=== PATIENT | male | born 1940 | race Caucasian/White ===

== ENCOUNTER 2019-11-21 18:03 | Emergency (ER) | payer MEDICARE, SELFPAY ==
--- NOTE | 2019-11-21 18:09 | XR_ITS ---
WS: [id number] PORTABLE CHEST HISTORY: sob COMPARISON: 09/11/2019 Prior median sternotomy. Lungs are hyperinflated with a benign calcified granuloma in the central RIGHT lung. No suspicious ma ss or nodule. No pneumonia. Normal vasculature. No pleural effusion or pneumothorax. Cardiac size: Normal. Mediastinum/Aorta: Mild atherosclerosis aorta. AC joint arthritis. Surgical clips the LEFT neck. XR/XR chest 1V portable [id number] IMPRESSION: 1. Atherosclerosis aorta with prior CABG. 2. Prior granulomatous disease. 3. No acute cardiopulmonary disease.
--- NOTE | 2019-11-21 18:10 | ECG_ITS ---
Measurements Intervals [place] Rate: 89 P: 90 NE: 141 QRS: 261 QRSD: 136 T: 75 QT: 393 QTc: 479 SINUS RHYTHM WITH OCCASIONAL SUPRAVENTRICULAR PREMATURE COMPLEXES INDETERMINATE AXIS Right bundle branch block Compared to ECG 09/11/2019 02:13:37 Intraventricular conduction delay now present Left anterior fascicular block no longer present Electronically Signed On 11-22-2019 8:08:06 OFFICE WORKFORCE PLANNER by Linus Hunter M.D. [id number]
[2019-11-21 18:26] VITALS: BP 208/111; PULSE 86; RESP 24; TEMP 37.1; O2SAT 92; BMI 25.8
[2019-11-21 18:41] LABS: INR 1.02 (0.8-1.2)
[2019-11-21 18:44] LABS: Basophils # 0.1 10^3/uL (0.0-0.1); Basophils % 0.6 %; Eosinophils # 0.5 10^3/uL (0.0-0.8); Hematocrit 46.1 % (42.0-52.0); Hemoglobin 14.6 g/dL (11.7-16.6); Lymphocytes # 1.4 10^3/uL (0.8-4.8); Lymphocytes % 11.6 %; Mean Corpuscular HGB Conc 31.7 g/dL (30.0-36.0); Mean Corpuscular Hemoglobin 28.8 pg (28.0-34.0); Mean Corpuscular Volume 90.9 fL (80-94); Monocytes # 1.4 10^3/uL (0.2-0.9); Monocytes % 11.6 %; Neutrophils # 8.9 10^3/uL (1.8-7.7); Neutrophils % 71.8 %; Nucleated Red Blood Cells % 0 %; Platelet Count 274 10^3/cmm (130-400); Red Blood Count 5.07 10^6/uL (4.1-5.3); Red Cell Distribution Width 13.4 % (12.1-15.1); White Blood Count 12.4 10^3/uL (4.0-10.0)
[2019-11-21 18:48] LABS: Troponin(5th) Baseline 17 ng/mL (0-15)
[2019-11-21 18:56] LABS: Alanine Aminotransferase 12 U/L (0-41); Alkaline Phosphatase 98 IU/L (40-130); Anion Gap 16.4 (5-19); Aspartate Amino Transferase 15 U/L (0-40); Blood Urea Nitrogen 13 mg/dL (8-23); Calcium 9.4 mg/Dl (8.8-10.2); Carbon Dioxide 28 mmol/L (22-29); Chloride 100 mmol/L (98-107); Globulin 3.6 g/dL (1.3-4.6); Glucose 137 mg/dL (74-106); NT Pro B Type Natriuretic Pept 1142 pg/mL (0-450); Potassium 4.4 mmol/L (3.5-5.1); Sodium 140 mmol/L (136-145); Total Bilirubin 0.4 mg/dL (0.15-1.2); Total Protein 7.6 g/dL (6.6-8.7)
--- NOTE | 2019-11-21 20:10 | ECG_ITS ---
Measurements Intervals [place] Rate: 85 P: 86 [place]: 153 QRS: 259 QRSD: 134 T: 69 QT: 404 QTc: 482 SINUS RHYTHM INDETERMINATE AXIS RIGHT BUNDLE BRANCH BLOCK [120+ ms QRS DURATION, UPRIGHT V1, 40+ ms S IN I/aVL/V4/V5/V6] LEFT POSTERIOR FASCICULAR BLOCK [QRS AXIS > 109, INFERIOR Q] Compared to ECG 09/11/2019 02:13:37 Left posterior fascicular block now present Left anterior fascicular block no longer present Electronically Signed On 11-22-2019 8:09:34 COMPUTER FIELD TECHNICIAN by Linus Hunter M.D. [id number]
[2019-11-21 20:35] LABS: Troponin 5 2HR 21.07 ng/mL (0-15)
[2019-11-21 20:42] LABS: Troponin 5 2HR Delta 4.07 ABS# (0-10)
--- NOTE | 2019-11-21 23:31 | W.ED.SOB ---
HPI - SOB/Dyspnea General: Chief Complaint: Shortness of Breath/Dyspnea Stated Complaint: sob Time Seen by Provider: 11/21/19 23:25 History of Present Illness: HPI Narrative: Cough and sputum production for the last few days MD elicited complaint: shortness of breath, cough and pain with inspiration Pertinent past history: COPD and congestive heart failure Context: recent illness Timing: improved Severity: mild Exacerbating factors: lying flat Associated symptoms: Reports chest congestion and cough; Deny abdominal pain, chest pain (edema), extremity pain, fever(s), hemoptysis, nausea or vomiting Review of Systems Const: Denies: fever, chills or body aches Eyes: Denies: change in vision or blurry vision ENMT: Denies: throat pain or nasal congestion Card: Denies: chest pain (edema) or shortness of breath on exertion Resp: Reports: shortness of breath, productive cough, wheezing and chest congestion; Denies: non-productive cough, pain on inspiration, change in phlegm color or coughing up blood GI: Denies: abdominal pain, nausea or vomiting : Denies: difficulty urinating Musc: Denies: extremity pain Skin/Breast: Denies: rash Neuro: Denies: headache Psych: Denies: anxiety or depression Bharathi/Lymph: Denies: easy bruising PFSH ED PFSH: Statuses (acute, chronic, etc) shown below reflect problem list status as previously entered and may not be historically accurate Social History Smoking and tobacco status: former smoker Physical Exam Const: COMMON NORMALS: no apparent distress, average body habitus and oriented x3 HENMT: COMMON NORMALS: normocephalic HEAD & SCALP: normal to inspection and normocephalic FACE & SINUS: normal facial exam Eye: COMMON NORMALS: conjunctivae normal GENERAL EYE: normal appearance of both eyes CONJUNCTIVA: Yes conjunctivae normal Neck/C-Spine: COMMON NORMALS: no JVD Chest: COMMONS NORMALS: inspection of chest normal Resp: COMMON NORMALS: normal respiratory effort AUSCULTATION: rhonchi and wheezes expiratory wheezes and scattered wheezes Cardio: COMMON NORMALS: no JVD, regular rate and regular rhythm RATE: regular rate RHYTHM: regular rhythm OTHER: edema 1+, non pitting BLE GI: COMMON NORMALS: normal to inspection, nondistended, normoactive bowel sounds Extremity: COMMON NORMALS: normal to inspection and full ROM Neuro: COMMON NORMALS: oriented x3 Course Vital Signs: Vital signs: Vital Signs Temperature 98.7 F 11/21/19 18:26 Pulse Rate 80 11/21/19 23:53 Respiratory Rate 18 11/21/19 23:53 Blood Pressure 192/110 11/21/19 23:53 Pulse Oximetry 93 11/21/19 23:53 MDM - SOB/Dyspnea Lab Data: Labs: Lab Results 11/21/19 11/21/19 11/21/19 Range/Units 18:25 18:25 18:25 WBC 12.4 H (4.0-10.0) 10^3/ uL RBC 5.07 (4.1-5.3) 10^6/u L Hgb 14.6 (11.7-16.6) g/dL Hct 46.1 (42.0-52.0) % MCV 90.9 (80-94) fL MCH 28.8 (28.0-34.0) pg MCHC 31.7 (30.0-36.0) g/dL RDW 13.4 (12.1-15.1) % Plt Count 274 (130-400) 10^3/c mm MPV 11.0 H (7.4-10.4) fL Neut % (Auto) 71.8 % Lymph % (Auto) 11.6 % [place] % (Auto) 11.6 % Eos % (Auto) 4.0 % Baso % (Auto) 0.6 % Neut # (Auto) 8.9 H (1.8-7.7) 10^3/u L Lymph # (Auto) 1.4 (0.8-4.8) 10^3/u L [place] # (Auto) 1.4 H (0.2-0.9) 10^3/u L Eos # (Auto) 0.5 (0.0-0.8) 10^3/u L Baso # (Auto) 0.1 (0.0-0.1) 10^3/u L Nucleated RBC % (a uto) 0 % Nucleated RBCs # 0.0 /100WBC PT 13.80 H (10.5-13.3) SECO NDS INR 1.02 (0.8-1.2) Sodium 140 (136-145) mmol/L Potassium 4.4 (3.5-5.1) mmol/L Chloride 100 (98-107) mmol/L Carbon Dioxide 28 (22-29) mmol/L Anion Gap 16.4 (5-19) BUN 13 (8-23) mg/dL Creatinine 1.1 (0.7-1.2) mg/dL Glucose 137 H (74-106) mg/dL Calcium 9.4 (8.8-10.2) mg/Dl Total Bilirubin 0.4 (0.15-1.2) mg/dL AST 15 (0-40) U/L ALT 12 (0-41) U/L Alkaline Phosphata se 98 (40-130) IU/L Troponin T Baselin e (0-15) ng/mL Troponin T 120 Min resighini (0-15) ng/mL Delta Troponin T (0-10) ABS# NT-Pro-B Natriuret Pep 1142 H (0-450) pg/mL Total Protein 7.6 (6.6-8.7) g/dL Albumin 4.0 (3.5-5.2) g/dL Globulin 3.6 (1.3-4.6) g/dL 11/21/19 11/21/19 Range/Units 18:25 20:15 WBC (4.0-10.0) 10^3/ uL RBC (4.1-5.3) 10^6/u L Hgb (11.7-16.6) g/dL Hct (42.0-52.0) % MCV (80-94) fL MCH (28.0-34.0) pg MCHC (30.0-36.0) g/dL RDW (12.1-15.1) % Plt Count (130-400) 10^3/c mm MPV (7.4-10.4) fL Neut % (Auto) % Lymph % (Auto) % [place] % (Auto) % Eos % (Auto) % Baso % (Auto) % Neut # (Auto) (1.8-7.7) 10^3/u L Lymph # (Auto) (0.8-4.8) 10^3/u L [place] # (Auto) (0.2-0.9) 10^3/u L Eos # (Auto) (0.0-0.8) 10^3/u L Baso # (Auto) (0.0-0.1) 10^3/u L Nucleated RBC % (a uto) % Nucleated RBCs # /100WBC PT (10.5-13.3) SECO NDS INR (0.8-1.2) Sodium (136-145) mmol/L Potassium (3.5-5.1) mmol/L Chloride (98-107) mmol/L Carbon Dioxide (22-29) mmol/L Anion Gap (5-19) BUN (8-23) mg/dL Creatinine (0.7-1.2) mg/dL Glucose (74-106) mg/dL Calcium (8.8-10.2) mg/Dl Total Bilirubin (0.15-1.2) mg/dL AST (0-40) U/L ALT (0-41) U/L Alkaline Phosphata se (40-130) IU/L Troponin T Baselin e 17 H (0-15) ng/mL Troponin T 120 Min resighini 21.07 H (0-15) ng/mL Delta Troponin T 4.07 (0-10) ABS# NT-Pro-B Natriuret Pep (0-450) pg/mL Total Protein (6.6-8.7) g/dL Albumin (3.5-5.2) g/dL Globulin (1.3-4.6) g/dL EKG Data^: EKG 3: EKG Interpretation Date: 11/22/19 EKG interpretation time: 00:06 Prior EKG tracings: available for review Interpretation: RBBB, 79bpm, sinus Discharge Plan Discharge Patient Disposition: Home, Self-Care Clinical Impression: Acute bacterial bronchitis Condition: Stable Prescriptions: New albuterol sulfate 90 mcg/actuation HFA aerosol inhaler 2 inh INHALATION Q4H PRN (Reason: shortness of breath) Qty: 8.5 RF: 0 clonidine HCl 0.1 mg tablet 0.1 mg PO Q6H 2 Days Qty: 8 RF: 0 azithromycin [Zithromax Z-Jose Enrique] 250 mg tablet 250 mg PO DAILY 6 Days RF: 0 prednisone 10 mg tablet 10 mg PO DAILY Qty: 15 RF: 0 Referrals: Jv Ro MD [Primary Care Provider] - Discharge Diet: Usual diet Discharge Activity: Increase activity as tolerated Coding Level of Care Code ED Pilot Fuel Engineer for Ameyag Fwd Exam Problem Focused
[2019-11-21] MEDS: predniSONE 20 mg Tablet PO (23:47)
[2019-11-21] MEDS: azithromycin 250 mg Tablet 500 MG PO (23:48)
[2019-11-21 23:53] VITALS: BP 192/110; PULSE 80; RESP 18; O2SAT 93
--- NOTE | 2019-11-22 00:10 | ECG_ITS ---
Measurements Intervals [place] Rate: 79 P: 87 MA: 156 QRS: -24 QRSD: 133 T: 74 QT: 422 QTc: 484 SINUS RHYTHM INDETERMINATE AXIS RIGHT BUNDLE BRANCH BLOCK [120+ ms QRS DURATION, UPRIGHT V1, 40+ ms S IN I/aVL/V4/V5/V6] Compared to ECG 09/11/2019 02:13:37 Left anterior fascicular block no longer present Electronically Signed On 11-22-2019 8:10:17 PROCESS ENVIRONMENTAL TECHNICIAN by Linus Hunter M.D. [id number]
[2019-11-22] MEDS: ipratropium-albuterol 3 mL Neb INHALATION (00:38)
[2019-11-22 00:39] VITALS: PULSE 84; RESP 20; O2SAT 94
[2019-11-22 00:42] VITALS: PULSE 82
[2019-11-22 00:50] LABS: Troponin 5 6HR 18.33 ng/L (0-15)
[2019-11-22 01:09] VITALS: BP 116/72
[2019-11-22 01:23] VITALS: BP 116/72; PULSE 86; RESP 18; O2SAT 96
[2019-11-22 01:30] LABS: Troponin 5 6HR Delta 1.33 ng/L (0-12)
== END 2019-11-22 01:24 | disposition home or self-care (01) ==
PROVIDERS: Emergency Medicine; Emergency Provider Nurse Practitioner Family; Family Provider Family Medicine; PCP Family Medicine
DX: J20.9 Acute bronchitis, unspecified (principal); Z87.891 Personal history of nicotine dependence; I70.0 Atherosclerosis of aorta
CPT/HCPCS: 36415; 71045; 80053; 83880; 84484; 85025; 85610; 93005; 99282; J7512; Q0144

== ENCOUNTER 2020-01-30 11:29 | Emergency (ER) | payer MEDICARE, SELFPAY ==
[2020-01-30] VITALS (7 sets, daily range): BP systolic 134–270; BP diastolic 70–132; PULSE 62–75; RESP 14–16; TEMP 36.5; O2SAT 90–96; BMI 25.8
--- NOTE | 2020-01-30 11:36 | ED_ITS ---
Entered by Lin Riley, acting as scribe for HPI - Neuro Symptoms/Deficit General: Chief Complaint: Neuro Symptoms/Deficit Stated Complaint: stroke like symptoms Time Seen by Provider: 01/30/20 11:34 Source: patient and family Mode of arrival: wheelchair Limitations: no limitations History of Present Illness: Onset (ago): week(s) (1 week ago) Timing confirmed by: family member Severity: similar to previous episodes Relieving factors: none Exacerbating factors: none Associated symptoms: Reports headache(s) and other (headache) Treatments Prior to Arrival: none Review of Systems General: Reports: 10 or more systems reviewed and unremarkable except in HPI and below Neuro: Reports: headache PFSH ED PFSH: Social History Smoking and tobacco status: former smoker Course Vital Signs: Vital signs: Vital Signs Temperature 97.7 F 01/30/20 11:31 Pulse Rate 67 01/30/20 13:47 Respiratory Rate 15 01/30/20 13:47 Blood Pressure 154/86 01/30/20 13:47 Pulse Oximetry 93 01/30/20 13:47 MDM - Neuro Symptoms/Deficit Lab Data: Labs: Lab Results 01/30/20 01/30/20 01/30/20 Range/Units 11:30 11:30 11:35 WBC 8.0 (4.0-10.0) 10^3/ uL RBC 5.01 (4.1-5.3) 10^6/u L Hgb 14.7 (11.7-16.6) g/dL Hct 46.4 (42.0-52.0) % MCV 92.6 (80-94) fL MCH 29.3 (28.0-34.0) pg MCHC 31.7 (30.0-36.0) g/dL RDW 14.1 (12.1-15.1) % Plt Count 223 (130-400) 10^3/c mm MPV 11.2 H (7.4-10.4) fL Neut % (Auto) 59.6 % Lymph % (Auto) 24.7 % [place] % (Auto) 10.2 % Eos % (Auto) 4.4 % Baso % (Auto) 0.9 % Neut # (Auto) 4.8 (1.8-7.7) 10^3/u L Lymph # (Auto) 2.0 (0.8-4.8) 10^3/u L [place] # (Auto) 0.8 (0.2-0.9) 10^3/u L Eos # (Auto) 0.4 (0.0-0.8) 10^3/u L Baso # (Auto) 0.1 (0.0-0.1) 10^3/u L Nucleated RBC % (a uto) 0 % Nucleated RBCs # 0.0 /100WBC PT (10.5-13.3) SECO NDS INR (0.8-1.2) APTT (23.9-36.7) SECO NDS Sodium (136-145) mmol/L Potassium (3.5-5.1) mmol/L Chloride (98-107) mmol/L Carbon Dioxide (22-29) mmol/L Anion Gap (5-19) BUN (8-23) mg/dL Creatinine (0.7-1.2) mg/dL Glucose (65-115) mg/dL POC Glucose (70-110) mg/dL Calculated Osmolal ity (285-295) mOsm/k g Calcium (8.5-10.5) mg/dL Total Bilirubin (0.15-1.2) mg/dL AST (0-40) U/L ALT (0-41) U/L Alkaline Phosphata se (40-130) IU/L Total Protein (6.6-8.7) g/dL Albumin (3.5-5.2) g/dL Globulin (1.3-4.6) g/dL Urine Color Straw (Yellow) Urine Appearance Clear (CLEAR) Urine pH 6.5 (5-7) Ur Specific Gravit y 1.005 (1.005-1.030) Urine Protein Neg (Negative) Urine Glucose (UA) Norm (Normal) Urine Ketones Negative (Negative) Urine Blood Neg (Negative) Urine Nitrate Negative (Negative) Urine Bilirubin Neg (NEGATIVE) Urine Urobilinogen Norm (Negative) mg/dL Ur Leukocyte Zari ase Negative (Negative) Urine Opiates Scre en Negative (Negative) ng/mL Ur Barbiturates Sc reen Negative (Negative) ng/mL Ur Phencyclidine S crn Negative (Negative) ng/mL Ur Amphetamines Sc reen Negative (Negative) ng/mL U Benzodiazepines Scrn Negative (Negative) ng/mL Urine Cocaine Scre en Negative (Negative) ng/mL U Marijuana (THC) Screen Negative (Negative) ng/mL 01/30/20 01/30/20 01/30/20 Range/Units 11:35 11:42 12:17 WBC (4.0-10.0) 10^3/ uL RBC (4.1-5.3) 10^6/u L Hgb (11.7-16.6) g/dL Hct (42.0-52.0) % MCV (80-94) fL MCH (28.0-34.0) pg MCHC (30.0-36.0) g/dL RDW (12.1-15.1) % Plt Count (130-400) 10^3/c mm MPV (7.4-10.4) fL Neut % (Auto) % Lymph % (Auto) % [place] % (Auto) % Eos % (Auto) % Baso % (Auto) % Neut # (Auto) (1.8-7.7) 10^3/u L Lymph # (Auto) (0.8-4.8) 10^3/u L [place] # (Auto) (0.2-0.9) 10^3/u L Eos # (Auto) (0.0-0.8) 10^3/u L Baso # (Auto) (0.0-0.1) 10^3/u L Nucleated RBC % (a uto) % Nucleated RBCs # /100WBC PT 13.50 H (10.5-13.3) SECO NDS INR 1.03 (0.8-1.2) APTT 28.9 (23.9-36.7) SECO NDS Sodium 139 (136-145) mmol/L Potassium 4.1 (3.5-5.1) mmol/L Chloride 101 (98-107) mmol/L Carbon Dioxide 30 H (22-29) mmol/L Anion Gap 12.1 (5-19) BUN 14 (8-23) mg/dL Creatinine 1.1 (0.7-1.2) mg/dL Glucose 107 (65-115) mg/dL POC Glucose 101 (70-110) mg/dL Calculated Osmolal ity 285 (285-295) mOsm/k g Calcium 9.1 (8.5-10.5) mg/dL Total Bilirubin 1.1 (0.15-1.2) mg/dL AST 20 (0-40) U/L ALT 16 (0-41) U/L Alkaline Phosphata se 72 (40-130) IU/L Total Protein 6.8 (6.6-8.7) g/dL Albumin 3.8 (3.5-5.2) g/dL Globulin 3.0 (1.3-4.6) g/dL Urine Color (Yellow) Urine Appearance (CLEAR) Urine pH (5-7) Ur Specific Gravit y (1.005-1.030) Urine Protein (Negative) Urine Glucose (UA) (Normal) Urine Ketones (Negative) Urine Blood (Negative) Urine Nitrate (Negative) Urine Bilirubin (NEGATIVE) Urine Urobilinogen (Negative) mg/dL Ur Leukocyte Zari ase (Negative) Urine Opiates Scre en (Negative) ng/mL Ur Barbiturates Sc reen (Negative) ng/mL Ur Phencyclidine S crn (Negative) ng/mL Ur Amphetamines Sc reen (Negative) ng/mL U Benzodiazepines Scrn (Negative) ng/mL Urine Cocaine Scre en (Negative) ng/mL U Marijuana (THC) Screen (Negative) ng/mL Discharge Plan Discharge Clinical Impression: Hypertensive crisis Condition: Stable Prescriptions: New clonidine HCl [Catapres] 0.1 mg tablet 0.1 mg PO ONCE PRN (Reason: hypertensive emergency) Qty: 10 RF: 0 hydralazine 10 mg tablet 10 mg PO TID Qty: 30 RF: 0 No Action carvedilol 25 mg tablet 25 mg PO BID RF: 0 lisinopril 20 mg tablet 20 mg PO BID RF: 0 clopidogrel 75 mg tablet 75 mg PO DAILY RF: 0 aspirin 81 mg Tablet,Delayed Release (Dr/Ec) 81 mg PO DAILY RF: 0 tamsulosin 0.4 mg capsule 0.4 mg PO DAILY RF: 0 pantoprazole 40 mg tablet,delayed release (DR/EC) 40 mg PO DAILY RF: 0 escitalopram oxalate 10 mg tablet 10 mg PO DAILY RF: 0 rosuvastatin 40 mg tablet 40 mg PO DAILY RF: 0 albuterol sulfate 90 mcg/actuation HFA aerosol inhaler 2 inh INHALATION Q4H PRN (Reason: shortness of breath) Qty: 8.5 RF: 0 Discharge Orders: Discharge Order (Routine); Ordered 01/30/20 Ordered By: Ricardo Sharp Referrals: Jv Ro MD [Primary Care Provider] - Coding Level of Care Code ED Director Market Research for Chg Fwd The documentation recorded by the Osvaldo gibson Bridget Annette, accurately reflects the service I personally performed and the decisions made by , Ricardo Sharp, Jan 30, 2020 11:29
--- NOTE | 2020-01-30 11:38 | XR_ITS ---
WS: [id number] XR chest 1V portable [id number] REASON FOR EXAM: dyspnea FINDINGS: A hamartoma seen in the right lower lung middle aspects. The heart is borderline enlarged with coronary bypass changes. The lung ervin are well aerated no pneumonia, pleural effusion, pulmonary edema, pneumothorax, or ma ss effect. XR/XR chest 1V portable [id number] IMPRESSION: Negative chest for active pathology. 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
--- NOTE | 2020-01-30 11:38 | CT_ITS ---
WS: [id number] CT scan of the head, 01/30/2020 Clinical Data: Symptoms of Acute Stroke Comparison: CT head, 10/27/2018. DLP: 1382.[address] scans at [facility] use at least one of these dose optimization techniques: automat ed exposure control; mA and/or kV adjustment per patient size (includes targeted exams where dose is matched to clinical indication); or iterative reconstruction. Findings: The ventricular system is moderately dilated without shift. No recent infarct or hemorrhage is seen. There are no abnormal intracerebral masses. The cerebellum and brainstem are not remarkable. Bony windows of the skull and skull base show no fractures or erosions. The mastoid air cells, pr intern al auditory canals, sella turcica, intraorbital contents, and paranasal sinuses are unremarkable. CT/CT head wo con* [id number] Impression: Moderate cerebral atrophy.
--- NOTE | 2020-01-30 11:38 | ECG_ITS ---
Measurements Intervals [place] Rate: 62 P: 59 HI: 158 QRS: -17 QRSD: 133 T: 51 QT: 458 QTc: 467 SINUS RHYTHM RIGHT BUNDLE BRANCH BLOCK [120+ ms QRS DURATION, UPRIGHT V1, 40+ ms S IN I/aVL/V4/V5/V6] Compared to ECG 11/22/2019 00:06:25 Indeterminate axis no longer present Electronically Signed On 01-30-2020 12:44:12 CDT by Donna Nicole M.D. [id number]
[2020-01-30 11:45] LABS: Glucose Point of Care 101 mg/dL (70-110)
[2020-01-30 11:46] LABS: Basophils # 0.1 10^3/uL (0.0-0.1); Basophils % 0.9 %; Eosinophils # 0.4 10^3/uL (0.0-0.8); Eosinophils % 4.4 %; Hematocrit 46.4 % (42.0-52.0); Hemoglobin 14.7 g/dL (11.7-16.6); Lymphocytes % 24.7 %; Mean Corpuscular HGB Conc 31.7 g/dL (30.0-36.0); Mean Corpuscular Hemoglobin 29.3 pg (28.0-34.0); Mean Corpuscular Volume 92.6 fL (80-94); Mean Platelet Volume 11.2 fL (7.4-10.4); Monocytes # 0.8 10^3/uL (0.2-0.9); Monocytes % 10.2 %; Neutrophils # 4.8 10^3/uL (1.8-7.7); Neutrophils % 59.6 %; Nucleated Red Blood Cells % 0 %; Platelet Count 223 10^3/cmm (130-400); Red Blood Count 5.01 10^6/uL (4.1-5.3); Red Cell Distribution Width 14.1 % (12.1-15.1)
[2020-01-30] MEDS: sodium chloride 0.9% 500 ML 999 ML IV (11:46)
--- NOTE | 2020-01-30 11:50 | PC.NURSE ---
Patient to CT via stretcher
[2020-01-30 12:01] LABS: INR 1.03 (0.8-1.2); Partial Thromboplastin Time 28.9 SECONDS (23.9-36.7)
[2020-01-30 12:36] LABS: Add Urine Microscopic? NO
[2020-01-30 12:47] LABS: Urine Appearance Clear (CLEAR); Urine Color Straw (Yellow); pH Urine 6.5 (5-7)
[2020-01-30 12:48] LABS: Bilirubin Urine Neg (NEGATIVE); Blood Urine Neg (Negative); Glucose Urine UA Norm (Normal); Ketones Urine Negative (Negative); Leukocyte Esterase Urine Negative (Negative); Nitrate Urine Negative (Negative); Protein Urine Neg (Negative); Specific Gravity, Urine 1.005 (1.005-1.030); Urobilinogen Urine Norm (Negative)
[2020-01-30 12:56] LABS: Amphetamines Screen Urine Negative (Negative); Barbiturates Screen Urine Negative (Negative); Benzodiazepines Screen Urine Negative (Negative); Cocaine Screen Urine Negative (Negative); Opiate Screen Urine Negative (Negative); PCP Screen Urine Negative (Negative); THC Screen Urine Negative (Negative)
[2020-01-30 13:05] LABS: Alanine Aminotransferase 16 U/L (0-41); Albumin Level 3.8 g/dL (3.5-5.2); Alkaline Phosphatase 72 IU/L (40-130); Anion Gap 12.1 (5-19); Aspartate Amino Transferase 20 U/L (0-40); Blood Urea Nitrogen 14 mg/dL (8-23); Calcium 9.1 mg/dL (8.5-10.5); Carbon Dioxide 30 mmol/L (22-29); Chloride 101 mmol/L (98-107); Glucose 107 mg/dL (65-115); Osmolality Calculated 285 mOsm/kg (285-295); Potassium 4.1 mmol/L (3.5-5.1); Sodium 139 mmol/L (136-145); Total Bilirubin 1.1 mg/dL (0.15-1.2); Total Protein 6.8 g/dL (6.6-8.7)
== END 2020-01-30 14:37 | disposition home or self-care (01) ==
PROVIDERS: Emergency Provider Family Medicine; Family Provider Family Medicine; PCP Family Medicine
DX: I16.9 Hypertensive crisis, unspecified (principal); Q85.9 Phakomatosis, unspecified; G31.9 Degenerative disease of nervous system, unspecified; Z87.891 Personal history of nicotine dependence; Z95.1 Presence of aortocoronary bypass graft
CPT/HCPCS: 12345; 36415; 36416; 70450; 71045; 80053; 80306; 81003; 82962; 85025; 85610; 85730; 93005; 96365; 96366; 99283; 99284; J7040; J7050

== ENCOUNTER 2020-11-02 20:42 | Observation (INO) | payer MEDICARE, SELFPAY ==
[2020-11-02] VITALS (40 sets, daily range): BP systolic 128–237; BP diastolic 66–115; PULSE 67–146; RESP 16–34; TEMP 36.9; O2SAT 89–98; BMI 25.1
--- NOTE | 2020-11-02 20:56 | ECG_ITS ---
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 Measurements Intervals [place] Rate: 75 P: 67 NV: 155 QRS: -15 QRSD: 140 T: 58 QT: 440 QTc: 492 Interpretive Statements SINUS RHYTHM WITH OCCASIONAL SUPRAVENTRICULAR PREMATURE COMPLEXES INDETERMINATE AXIS RIGHT BUNDLE BRANCH BLOCK [120+ ms QRS DURATION, UPRIGHT V1, 40+ ms S IN I/aVL/V4/V5/V6] Compared to ECG 01/30/2020 12:36:25 Indeterminate axis now present Electronically Signed On 11-02-2020 21:53:48 RELATIONS MANAGER by Donna Nicole M.D. [email or web address] Environmental Solutionsturning point mature adult care unitAnchor Bay Technologiessouthview medical center.[employer]/store/NU/[id number] f
--- NOTE | 2020-11-02 20:56 | XRR_ITS ---
PROCEDURE INFORMATION: Exam: XR Chest, 1 View Exam date and time: 11/02/2020 9:14 PM Age: 80 years old Clinical indication: Other: Weakness TECHNIQUE: Imaging protocol: XR of the chest Views: 1 view. COMPARISON: CR XR chest 1V portable [id number] 01/30/2020 12:02 PM FINDINGS: Lungs: 5 mm calcified granuloma in the right lung. Minimal linear fibrosis at the left lung base. No consolidative pulmonary infiltrates are noted. Pleural space: No pleural effusion. No pneumothorax. Heart/Mediastinum: Mediastinal surgical clips are noted, consistent with previous CABG. Bones/joints: Median sternotomy noted. XR/XR chest 1V portable [id number] IMPRESSION: 1. No acute abnormality demonstrated. 2. There is no interval change from the prior examination.
--- NOTE | 2020-11-02 20:56 | CTR_ITS ---
PROCEDURE INFORMATION: Exam: CT Head Without Contrast Exam date and time: 11/02/2020 8:58 PM Age: 80 years old Clinical indication: Speech disturbance and weakness, facial; Patient HX: Slurred speech R facial droop and unsteady gait; Additional info: Symptoms of acute stroke TECHNIQUE: Imaging protocol: Computed tomography of the head without contrast. Radiation optimization: All CT scans at this facility use at least one of these dose optimization techniques: automated exposure control; mA and/or kV adjustment per patient size (includes targeted exams where dose is matched to clinical indication); or iterative reconstruction. Other technique: STROKE PROTOCOL was implemented. COMPARISON: CT head wo con* [id number] 01/30/2020 11:49 AM RADIATION DOSE METRICS: Total DLP (mGy-cm): 1294.69 FINDINGS: Brain: There is volume loss. There is white matter lucency consistent with chronic microvascular disease. There is no acute infarct. There is no hemorrhage or extra-axial collection. There is no mass. Cerebral ventricles: There is no hydrocephalus. Bones/joints: Unremarkable. No acute fracture. Paranasal sinuses: Visualized sinuses are unremarkable. No fluid levels. Mastoid air cells: Visualized mastoid air cells are well aerated. Soft tissues: Unremarkable. CT/CT head wo con* [id number] IMPRESSION: 1. There is chronic microvascular disease. 2. No acute intracranial lesion or injury. No change from prior scan. ASSESSMENT: ASPECTS ([place]erie Stroke Program Early CT Score) is 10. Radiation Dose CTDIVOL = (mGy): DLP = 1294.69 (mGy-cm)
[2020-11-02 20:57] LABS: Glucose Point of Care 108 mg/dL (70-110)
--- NOTE | 2020-11-02 20:57 | ECG_ITS ---
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 Measurements Intervals [place] Rate: 75 P: 72 DE: 156 QRS: 7 QRSD: 140 T: 65 QT: 416 QTc: 466 Interpretive Statements SINUS RHYTHM WITH OCCASIONAL SUPRAVENTRICULAR PREMATURE COMPLEXES INDETERMINATE AXIS RIGHT BUNDLE BRANCH BLOCK [120+ ms QRS DURATION, UPRIGHT V1, 40+ ms S IN I/aVL/V4/V5/V6] Compared to ECG 11/02/2020 20:50:43 No significant changes Electronically Signed On 11-02-2020 21:52:05 PROFESSIONAL SERVICES CONSULTANT by Donna Nicole M.D. https://[employer].DecisionPoint Systemsscott regional hospitalMinds + Machines Group Limitedfirelands regional medical [facility].ConnectFu/store/[id number] f
--- NOTE | 2020-11-02 20:57 | W.ED.NEUROSD ---
HPI - Neuro Symptoms/Deficit General: Chief Complaint: Neuro Symptoms/Deficit Stated Complaint: NEURO SYMPTOMS Time Seen by Provider: 11/02/20 20:56 History of Present Illness: HPI Narrative: 80-year-old male with a history of CVA presents with right-sided facial droop, dysarthria, and blurry vision. On initial interview, time of onset is seemed to be around 7 PM. On further questioning, he has been battling some of the symptoms for a week or so. They seem to acutely worsen at around 7 PM today. He also states that he got a headache around that time. The headache seems improved on arrival. His other symptoms seem to be stable to worsening, including his speech. They also say that over the past week to 10 days, his blood pressure has been very high at times. He had been in contact with his primary physician, and blood pressure medication had been increased. It had been high despite this. Onset (ago): hour(s) Last Observed Normal: 19:00 Timing confirmed by: other Location: right face and dysarthria History of same: Yes Severity: moderate Quality: burning Relieving factors: none Exacerbating factors: none Context: gradual onset On Anticoagulants: No Associated symptoms: Reports headache(s) and short of breath; Deny chest pain, cough, fevers/chills, tingling, vertigo or vomiting Treatments Prior to Arrival: Aspirin Review of Systems Const: Denies: fever(s) or chills Eyes: Reports: change in vision and blurry vision ENMT: Denies: odynophagia, swelling of lips/tongue or sinus pain Card: Denies: chest pain Resp: Reports: dyspnea; Denies: productive cough, non-productive cough or wheezing GI: Denies: vomiting : Denies: difficulty urinating or hematuria Musc: Denies: neck pain or back pain Skin/Breast: Denies: rash or erythema Neuro: Reports: headache(s) and dizziness; Denies: vertigo or confusion Psych: Denies: anxiety PFSH ED PFSH: Medical History Arthritis Coronary artery disease Hypertension Peripheral vascular disease Seronegative rheumatoid arthritis 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 Type 2 diabetes mellitus Surgical History 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) S/P carotid endarterectomy Left-sided Family History Other CAD (coronary artery disease) Stroke Social History Smoking and tobacco status: former smoker Alcohol intake: never Substance/Drug Use: never Housing: House NIH stroke score NIHSS: Level Of Consciousness - 1a: 0 Level Of Consciousness Questions - 1b: Both Correct Level Of Consciousness Commands - 1c: Both Correct Best Gaze - 2: Normal Visual Bae - 3: Partial Hemianopia Facial Palsy - 4: Partial Paralysis Motor Arm Right - 5: No Drift Motor Arm Left - 5: No Drift Motor Leg Right - 6: No Drift Motor Leg Left - 6: No Drift Limb Ataxia - 7: Absent Sensory - 8: Normal Best Language - 9: No Aphasia Dysarthia - 10: Mild/Moderate Dysarthia Extinction And Inattention - 11: 0 Score: Total Score: 4 Physical Exam Const: GENERAL APPEARANCE: well developed ORIENTATION/CONSCIOUSNESS: Yes oriented to person, Yes oriented to place and Yes oriented to time HENMT: COMMON NORMALS: normocephalic, external ears normal and Normal external nose present HEAD & SCALP: normocephalic FACE & SINUS: normal facial exam NOSE: Normal external nose present and No nasal discharge present EXTERNAL EAR: Yes external ears normal MOUTH: tongue normal Eye: COMMON NORMALS: Equal, round and reactive pupils present, EOMs intact bilaterally and conjunctivae normal EYELID: eyelids normal CONJUNCTIVA: Yes conjunctivae normal PUPIL: Yes Equal, round and reactive pupils present Neck/C-Spine: GENERAL: No tracheal deviation Chest: COMMONS NORMALS: normal inspection of the chest CHEST: No tenderness Resp: COMMON NORMALS: clear to auscultation bilaterally EFFORT & INSPECTION: No tachypneic, No respiratory distress, No retractions, No uses accessory muscles and No tracheal deviation AUSCULTATION: clear to auscultation bilaterally, no rhonchi, no wheezes and lung sounds not diminished Cardio: COMMON NORMALS: regular rate and regular rhythm RATE: regular rate RHYTHM: regular rhythm HEART SOUNDS: no murmurs PERIPHERAL PULSES: radial pulses present GI: INSPECTION: No abdominal distension AUSCULTATION: No Hyperactive bowel sounds present and No Hypoactive bowel sounds present PALPATION: No Guarding due to palpation present (GI) and No Rigid due to palpation PERCUSSION: no dullness to percussion and no tympanic to percussion Neuro: SENSORIUM/ORIENTATION: Yes oriented to person, Yes oriented to place and Yes oriented to time OTHER: See NIH Psych: COMMON NORMALS: mental status grossly normal Skin: COMMON NORMALS: no rashes or lesions noted GENERAL SKIN EXAM: no rashes or lesions noted Course Consultations: Consultation #1: Edwin, Neurology [facility] Vital Signs: Vital signs: Vital Signs Temperature 98.5 F 11/02/20 20:46 Pulse Rate 71 11/03/20 00:10 Respiratory Rate 22 H 11/03/20 00:10 Blood Pressure 172/85 11/03/20 00:10 Pulse Oximetry 93 11/03/20 00:10 MDM - Neuro Symptoms/Deficit MDM Narrative: Medical decision making narrative: 80-year-old male presents with what appears to be an increase in dysarthria facial droop on the right, and perhaps an increase in chronic diplopia/blurry vision. He has an NIH of 4. Stroke alert was called after initial examination, spoke with neurology from [facility] in [place]. They agreed with questionable time of true onset of symptoms versus just worsening, and with an NIH of 4 which is less than 6, TPA may not be the best treatment for this patient. Patient agreed. He had received 20 mg of labetalol initially, with significant improvement in his blood pressure. With this, symptoms seem to improve as well. His facial droop on reexamination was not nearly as dense, and his speech was mildly improved. He will be observed in the hospital. Hospitalist agrees. Lab Data: Labs: Lab Results 11/02/20 11/02/20 11/02/20 Range/Units 20:47 20:52 20:52 WBC 8.0 (4.0-10.0) 10^3/ uL RBC 5.21 (4.1-5.3) 10^6/u L Hgb 14.8 (11.7-16.6) g/dL Hct 47.9 (42.0-52.0) % MCV 91.9 (80-94) fL MCH 28.4 (28.0-34.0) pg MCHC 30.9 (30.0-36.0) g/dL RDW 14.1 (12.1-15.1) % Plt Count 245 (130-400) 10^3/c mm MPV 11.2 H (7.4-10.4) fL Neut % (Auto) 51.2 % Lymph % (Auto) 28.6 % Mitchell % (Auto) 13.7 % Eos % (Auto) 4.8 % Baso % (Auto) 1.6 % Neut # (Auto) 4.07 (1.8-7.7) 10^3/u L Lymph # (Auto) 2.3 (0.8-4.8) 10^3/u L Mitchell # (Auto) 1.1 H (0.2-0.9) 10^3/u L Eos # (Auto) 0.4 (0.0-0.8) 10^3/u L Baso # (Auto) 0.1 (0.0-0.1) 10^3/u L Nucleated RBC % (a uto) 0 % Nucleated RBCs # 0.0 /100WBC PT 13.60 (12.1-14.9) SECO NDS INR 1.01 (0.8-1.2) APTT 26.9 (23.9-36.7) SECO NDS Sodium (136-145) mmol/L Potassium (3.5-5.1) mmol/L Chloride (98-107) mmol/L Carbon Dioxide (22-29) mmol/L Anion Gap (5-19) BUN (8-23) mg/dL Creatinine (0.7-1.2) mg/dL GFR Calculation Glucose (65-115) mg/dL POC Glucose 108 (70-110) mg/dL Calculated Osmolal ity (285-295) mOsm/k g Calcium (8.5-10.5) mg/dL Total Bilirubin (0.15-1.2) mg/dL AST (0-40) U/L ALT (0-41) U/L Alkaline Phosphata se (40-130) IU/L Troponin T Baselin e (0-15) ng/L Troponin T 120 Min upper [place] (0-15) ng/L Delta Troponin T (0-10) ABS# Total Protein (6.6-8.7) g/dL Albumin (3.5-5.2) g/dL Globulin (1.3-4.6) g/dL Urine Color (Yellow) Urine Appearance (CLEAR) Urine pH (5-7) Ur Specific Gravit y (1.005-1.030) Urine Protein (Negative) Urine Glucose (UA) (Normal) Urine Ketones (Negative) Urine Blood (Negative) Urine Nitrate (Negative) Urine Bilirubin (Negative) Urine Urobilinogen (Negative) mg/dL Ur Leukocyte Zari ase (Negative) Urine Opiates Scre en (Negative) ng/mL Ur Barbiturates Sc reen (Negative) ng/mL Ur Phencyclidine S crn (Negative) ng/mL Ur Amphetamines Sc reen (Negative) ng/mL U Benzodiazepines Scrn (Negative) ng/mL Urine Cocaine Scre en (Negative) ng/mL U Marijuana (THC) Screen (Negative) ng/mL 11/02/20 11/02/20 11/02/20 Range/Units 20:52 20:52 21:44 WBC (4.0-10.0) 10^3/ uL RBC (4.1-5.3) 10^6/u L Hgb (11.7-16.6) g/dL Hct (42.0-52.0) % MCV (80-94) fL MCH (28.0-34.0) pg MCHC (30.0-36.0) g/dL RDW (12.1-15.1) % Plt Count (130-400) 10^3/c mm MPV (7.4-10.4) fL Neut % (Auto) % Lymph % (Auto) % Mitchell % (Auto) % Eos % (Auto) % Baso % (Auto) % Neut # (Auto) (1.8-7.7) 10^3/u L Lymph # (Auto) (0.8-4.8) 10^3/u L Mitchell # (Auto) (0.2-0.9) 10^3/u L Eos # (Auto) (0.0-0.8) 10^3/u L Baso # (Auto) (0.0-0.1) 10^3/u L Nucleated RBC % (a uto) % Nucleated RBCs # /100WBC PT (12.1-14.9) SECO NDS INR (0.8-1.2) APTT (23.9-36.7) SECO NDS Sodium 142 (136-145) mmol/L Potassium 4.1 (3.5-5.1) mmol/L Chloride 104 (98-107) mmol/L Carbon Dioxide 30 H (22-29) mmol/L Anion Gap 12.1 (5-19) BUN 20 (8-23) mg/dL Creatinine 1.1 (0.7-1.2) mg/dL GFR Calculation Not Reportable Glucose 106 (65-115) mg/dL POC Glucose (70-110) mg/dL Calculated Osmolal ity 297 H (285-295) mOsm/k g Calcium 8.7 (8.5-10.5) mg/dL Total Bilirubin 0.4 (0.15-1.2) mg/dL AST 19 (0-40) U/L ALT 14 (0-41) U/L Alkaline Phosphata se 102 (40-130) IU/L Troponin T Baselin e 33 H (0-15) ng/L Troponin T 120 Min upper [place] (0-15) ng/L Delta Troponin T (0-10) ABS# Total Protein 7.0 (6.6-8.7) g/dL Albumin 3.9 (3.5-5.2) g/dL Globulin 3.1 (1.3-4.6) g/dL Urine Color (Yellow) Urine Appearance (CLEAR) Urine pH (5-7) Ur Specific Gravit y (1.005-1.030) Urine Protein (Negative) Urine Glucose (UA) (Normal) Urine Ketones (Negative) Urine Blood (Negative) Urine Nitrate (Negative) Urine Bilirubin (Negative) Urine Urobilinogen (Negative) mg/dL Ur Leukocyte Zari ase (Negative) Urine Opiates Scre en Negative (Negative) ng/mL Ur Barbiturates Sc reen Negative (Negative) ng/mL Ur Phencyclidine S crn Negative (Negative) ng/mL Ur Amphetamines Sc reen Negative (Negative) ng/mL U Benzodiazepines Scrn Negative (Negative) ng/mL Urine Cocaine Scre en Negative (Negative) ng/mL U Marijuana (THC) Screen Negative (Negative) ng/mL 11/02/20 11/02/20 Range/Units 21:44 23:15 WBC (4.0-10.0) 10^3/ uL RBC (4.1-5.3) 10^6/u L Hgb (11.7-16.6) g/dL Hct (42.0-52.0) % MCV (80-94) fL MCH (28.0-34.0) pg MCHC (30.0-36.0) g/dL RDW (12.1-15.1) % Plt Count (130-400) 10^3/c mm MPV (7.4-10.4) fL Neut % (Auto) % Lymph % (Auto) % Mitchell % (Auto) % Eos % (Auto) % Baso % (Auto) % Neut # (Auto) (1.8-7.7) 10^3/u L Lymph # (Auto) (0.8-4.8) 10^3/u L Mitchell # (Auto) (0.2-0.9) 10^3/u L Eos # (Auto) (0.0-0.8) 10^3/u L Baso # (Auto) (0.0-0.1) 10^3/u L Nucleated RBC % (a uto) % Nucleated RBCs # /100WBC PT (12.1-14.9) SECO NDS INR (0.8-1.2) APTT (23.9-36.7) SECO NDS Sodium (136-145) mmol/L Potassium (3.5-5.1) mmol/L Chloride (98-107) mmol/L Carbon Dioxide (22-29) mmol/L Anion Gap (5-19) BUN (8-23) mg/dL Creatinine (0.7-1.2) mg/dL GFR Calculation Glucose (65-115) mg/dL POC Glucose (70-110) mg/dL Calculated Osmolal ity (285-295) mOsm/k g Calcium (8.5-10.5) mg/dL Total Bilirubin (0.15-1.2) mg/dL AST (0-40) U/L ALT (0-41) U/L Alkaline Phosphata se (40-130) IU/L Troponin T Baselin e (0-15) ng/L Troponin T 120 Min [place] 33.38 H (0-15) ng/L Delta Troponin T 0.38 (0-10) ABS# Total Protein (6.6-8.7) g/dL Albumin (3.5-5.2) g/dL Globulin (1.3-4.6) g/dL Urine Color Yellow (Yellow) Urine Appearance Clear (CLEAR) Urine pH 5 (5-7) Ur Specific Gravit y 1.020 (1.005-1.030) Urine Protein Neg (Negative) Urine Glucose (UA) Norm (Normal) Urine Ketones Negative (Negative) Urine Blood Neg (Negative) Urine Nitrate Negative (Negative) Urine Bilirubin Neg (Negative) Urine Urobilinogen 1 H (Negative) mg/dL Ur Leukocyte Zari ase Negative (Negative) Urine Opiates Scre en (Negative) ng/mL Ur Barbiturates Sc reen (Negative) ng/mL Ur Phencyclidine S crn (Negative) ng/mL Ur Amphetamines Sc reen (Negative) ng/mL U Benzodiazepines Scrn (Negative) ng/mL Urine Cocaine Scre en (Negative) ng/mL U Marijuana (THC) Screen (Negative) ng/mL Discharge Plan Discharge Patient Disposition: Placed in Observation Admit Provider: Ewa Ramírez Clinical Impression: Hypertensive urgency Coding Level of Care Code ED Ocean Freight Agent for Chg Fwd Exam Comprehensive
[2020-11-02 21:04] LABS: Basophils # 0.1 10^3/uL (0.0-0.1); Basophils % 1.6 %; Eosinophils # 0.4 10^3/uL (0.0-0.8); Eosinophils % 4.8 %; Hematocrit 47.9 % (42.0-52.0); Hemoglobin 14.8 g/dL (11.7-16.6); Lymphocytes # 2.3 10^3/uL (0.8-4.8); Lymphocytes % 28.6 %; Mean Corpuscular HGB Conc 30.9 g/dL (30.0-36.0); Mean Corpuscular Hemoglobin 28.4 pg (28.0-34.0); Mean Corpuscular Volume 91.9 fL (80-94); Mean Platelet Volume 11.2 fL (7.4-10.4); Monocytes # 1.1 10^3/uL (0.2-0.9); Monocytes % 13.7 %; Neutrophils # 4.07 10^3/uL (1.8-7.7); Neutrophils % 51.2 %; Nucleated Red Blood Cells % 0 %; Platelet Count 245 10^3/cmm (130-400); Red Blood Count 5.21 10^6/uL (4.1-5.3); Red Cell Distribution Width 14.1 % (12.1-15.1)
[2020-11-02] MEDS: labetalol 5 mg/mL SDV 20mL 20 MG IV (21:08)
[2020-11-02 21:13] LABS: INR 1.01 (0.8-1.2); Partial Thromboplastin Time 26.9 SECONDS (23.9-36.7)
[2020-11-02 21:19] LABS: Alanine Aminotransferase 14 U/L (0-41); Albumin Level 3.9 g/dL (3.5-5.2); Alkaline Phosphatase 102 IU/L (40-130); Anion Gap 12.1 (5-19); Aspartate Amino Transferase 19 U/L (0-40); Blood Urea Nitrogen 20 mg/dL (8-23); Calcium 8.7 mg/dL (8.5-10.5); Carbon Dioxide 30 mmol/L (22-29); Chloride 104 mmol/L (98-107); Globulin 3.1 g/dL (1.3-4.6); Glucose 106 mg/dL (65-115); Osmolality Calculated 297 mOsm/kg (285-295); Potassium 4.1 mmol/L (3.5-5.1); Sodium 142 mmol/L (136-145); Total Bilirubin 0.4 mg/dL (0.15-1.2)
[2020-11-02 21:20] LABS: Troponin(5th) Baseline 33 ng/L (0-15)
[2020-11-02 21:55] LABS: Add Urine Microscopic? NO
[2020-11-02 22:02] LABS: Urine Appearance Clear (CLEAR); Urine Color Yellow (Yellow)
[2020-11-02 22:03] LABS: Bilirubin Urine Neg (Negative); Blood Urine Neg (Negative); Glucose Urine UA Norm (Normal); Ketones Urine Negative (Negative); Leukocyte Esterase Urine Negative (Negative); Nitrate Urine Negative (Negative); Protein Urine Neg (Negative); Urobilinogen Urine 1 mg/dL (Negative); pH Urine 5 (5-7)
[2020-11-02 22:12] LABS: Amphetamines Screen Urine Negative (Negative); Barbiturates Screen Urine Negative (Negative); Benzodiazepines Screen Urine Negative (Negative); Cocaine Screen Urine Negative (Negative); Opiate Screen Urine Negative (Negative); PCP Screen Urine Negative (Negative); THC Screen Urine Negative (Negative)
--- NOTE | 2020-11-02 22:57 | ECG_ITS ---
[facility] Test Date: 2020-11-02 Pat Name: Robby Haskins Department: Room: 250 Gender: Male Melter Loader: : 1940 Requested By: Bruce Tierney Order Number: [id number] Magdalena MD: Donna Nicole M.D. Measurements Intervals [place] Rate: 73 P: 76 NE: 166 QRS: -11 QRSD: 138 T: 69 QT: 446 QTc: 494 Interpretive Statements SINUS RHYTHM WITH OCCASIONAL SUPRAVENTRICULAR PREMATURE COMPLEXES RIGHT BUNDLE BRANCH BLOCK [120+ ms QRS DURATION, UPRIGHT V1, 40+ ms S IN I/aVL/V4/V5/V6] Compared to ECG 11/02/2020 20:51:59 Indeterminate axis no longer present Electronically Signed On 11-04-2020 21:22:04 GRADES 1 THROUGH 6 TEACHER by Donna Nicole M.D. [id number]
--- NOTE | 2020-11-02 23:12 | PM.HP ---
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 He is denying chest pain fever nausea, vomiting, falls, syncope. Recently about 1 week ago carotid Dopplers were done which were unremarkable as per the patient, his hydralazine dose was increased to 20 mg 4 times a day because of hypertension. On arrival blood pressure 235/115mmhg, improved with 20 mg of labetalol at the time my interview 172/85 patient is not endorsing worsening of symptoms he thinks he is back to his baseline, EKG showing sinus rhythm, saturating well on room air, patient recently started using compression stockings on right leg because of edema. Review of records revealed that his diplopia, right-sided facial droop, right-sided hemiparesis is present since 2018. Review of Systems Const: Reports: body aches and fatigue; Denies: fever(s) or chills Eyes: Reports: change in vision and blurry vision ENMT: Denies: throat pain Card: Reports: edema; Denies: chest pain Resp: Denies: dyspnea GI: Denies: abdominal pain : Denies: flank pain Musc: Reports: extremity pain, joint pain, limited range of motion and muscle cramps; Denies: joint swelling Skin/Breast: Denies: rash Neuro: Reports: headache(s) and dizziness Psych: Denies: anxiety Endo: Denies: polyuria Bharathi/Lymph: Denies: easy bruising All/Imm: Denies: urticaria Medications/Allergies Home Medications Medication Instructions Recorded Confirmed Last Taken Type aspirin 325 mg PO DAILY 01/30/20 11/02/20 11/02/20 History carvedilol 25 mg PO BID 01/30/20 11/02/20 11/02/20 History clopidogrel 75 mg PO DAILY 01/30/20 11/02/20 11/02/20 History escitalopram oxalate 10 mg PO DAILY 01/30/20 11/02/20 11/02/20 History lisinopril 20 mg PO BID 01/30/20 11/02/20 11/02/20 History pantoprazole 40 mg PO DAILY 01/30/20 11/02/20 11/02/20 History rosuvastatin 40 mg PO DAILY 01/30/20 11/02/20 11/01/20 History tamsulosin 0.4 mg PO DAILY 01/30/20 11/02/20 11/02/20 History hydralazine 2 tab PO TID 11/02/20 11/02/20 11/02/20 History Allergies Allergy/AdvReac Type Severity Reaction Status Date / Time No Known Allergies Allergy Verified 11/02/20 20:51 PFSH Acute PFSH: Medical History Arthritis Coronary artery disease Hypertension Peripheral vascular disease Seronegative rheumatoid arthritis 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 Type 2 diabetes mellitus Surgical History 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) S/P carotid endarterectomy Left-sided Family History Other CAD (coronary artery disease) Stroke Social History Smoking and tobacco status: former smoker Alcohol intake: never Substance/Drug Use: never Housing: House Vitals/I&O/Wt Last Vital Signs Temp 98.5 F 11/02/20 20:46 Pulse 74 11/02/20 22:15 Resp 24 H 11/02/20 22:15 BP 173/83 11/02/20 22:15 Pulse Ox 92 11/02/20 22:15 Weight last 48 hrs Weight 77.111 kg Physical Exam Narrative: EXAM NARRATIVE: Very pleasant elderly male Hypertensive at the time of the ER physician evaluation 235/115, at the time my evaluation 172/85 mmHg NIH score 3-4 however he has chronic right-sided facial droop, right tongue paresthesia and diplopia EOMI, PERRLA Patient is stating that his symptoms are back to baseline Right lower extremity edema noted No cerebellar signs Sinus rhythm, S1, S2, aortic valve murmur No signs of heart failure Abdomen soft nontender bowel sound present No acute respite distress Appropriate mood and affect Gait was not tested No acute respiratory distress bilateral breath sounds without active rhonchi or crackles Data : 11/02/20 20:52 11/02/20 20:52 A&P Assessment and plan (1) CVA (cerebral vascular accident): Status: Acute (2) Hypertensive urgency: Status: Acute (3) Slurred speech: Status: Acute Additional A&P Information Acute CVA Onset 2-1/2 hours before arrival to the ER NIH 3-4 not a candidate of TPA, hypertensive 235/115 mmHg, received labetalol 20 mg IV push which improved his blood pressure currently patient is stating that his symptoms are back to baseline He thinks initially his right-sided facial droop, blurry vision and weakness worsened, and his speech was more slurred than usual Not complaining of active chest pain He is already on high-dose aspirin and Plavix and statins which I would continue for now Sinus rhythm on EKG Would obtain MRI head to rule out acute infarct patient is stating of 1 week ago carotid Dopplers were done which were unremarkable therefore I would not repeat vascular imaging Obtain speech and physical therapy evaluation Hypertensive urgency improved with labetalol IV push, I would increase his hydralazine to 50 mg 3 times a day, add amlodipine and continue Coreg and lisinopril Would avoid hydrochlorothiazide considering his age Right leg edema: will request venous Doppler Goals of care discussed with the patient, he wants a trial of CPR and intubation if required but does not want to be intubated for prolonged period of time N.p.o. until speech evaluation in the morning DVT prophylaxis Lovenox Attestations Medical Necessity Statement*: Anticipating discharge in less than 48 hours currently need investigation to rule out acute infarct requested MRI head, will need speech evaluation in the morning Time Spent in Patient Care: (>than 50% of time spent in counselling and/or direct pt care on unit). 50mins Coding Level of Care Code Acute Advisory Services Associate for Chg Fwd Diagnoses CVA (cerebral vascular accident) I63.9 Hypertensive urgency I16.0 Slurred speech R47.81
[2020-11-02 23:42] LABS: Troponin 5 2HR 33.38 ng/L (0-15); Troponin 5 2HR Delta 0.38 ABS# (0-10)
[2020-11-03] VITALS (14 sets, daily range): BP systolic 136–198; BP diastolic 68–98; PULSE 64–82; RESP 18–24; TEMP 36.6–37.2; O2SAT 91–95
--- NOTE | 2020-11-03 00:51 | USR_ITS ---
PROCEDURE INFORMATION: Exam: US Duplex Right Lower Extremity Veins, Limited Exam date and time: 11/03/2020 12:51 AM Age: 80 years old Clinical indication: Edema, localized; Lower extremity, right; Additional info: Dvt TECHNIQUE: Imaging protocol: Real-time Duplex ultrasound of the Right Lower Extremity with 2-D ford scale, color Doppler flow and spectral waveform analysis with image documentation. Limited exam was focused on the right lower extremity veins. COMPARISON: No relevant prior studies available. FINDINGS: Right deep veins: Unremarkable. The common femoral, femoral, proximal profunda femoral and popliteal veins are patent without thrombus. Normal Doppler waveforms. Normal compressibility and/or augmentation response. Right superficial veins: Unremarkable. Saphenofemoral junction is patent without thrombus. Soft tissues: There is mild subcutaneous edema in the [place].. [place] [id number] IMPRESSION: No evidence of deep vein thrombosis.
[2020-11-03] MEDS: heparin 5,000 unit/mL INJ 1 mL 5000 UNIT SUBCUT ×3 (01:51→17:30)
--- NOTE | 2020-11-03 02:57 | ECG_ITS ---
[facility] Test Date: 2020-11-03 Pat Name: Robby Haskins Department: Room: 250 Gender: Male Women'S Studies Lecturer: : 1940 Requested By: Bruce Tierney Order Number: [id number] Magdalena MD: Donna Nicole M.D. Measurements Intervals [place] Rate: 71 P: 82 KS: 165 QRS: -76 QRSD: 141 T: 73 QT: 471 QTc: 515 Interpretive Statements SINUS RHYTHM WITH OCCASIONAL SUPRAVENTRICULAR PREMATURE COMPLEXES RIGHT BUNDLE BRANCH BLOCK [120+ ms QRS DURATION, UPRIGHT V1, 40+ ms S IN I/aVL/V4/V5/V6] LEFT ANTERIOR FASCICULAR BLOCK [QRS AXIS <= -45, QR IN I, RS IN II] Compared to ECG 11/02/2020 23:23:27 Left anterior fascicular block now present Electronically Signed On 11-04-2020 21:14:12 CAMERA REPAIR TECHNICIAN by Donna Nicole M.D. [id number]
[2020-11-03 03:01] LABS: Basophils # 0.1 10^3/uL (0.0-0.1); Basophils % 1.3 %; Eosinophils # 0.3 10^3/uL (0.0-0.8); Eosinophils % 4.4 %; Hematocrit 42.1 % (42.0-52.0); Lymphocytes # 1.9 10^3/uL (0.8-4.8); Lymphocytes % 27.8 %; Mean Corpuscular HGB Conc 30.9 g/dL (30.0-36.0); Mean Corpuscular Hemoglobin 28.5 pg (28.0-34.0); Mean Corpuscular Volume 92.3 fL (80-94); Mean Platelet Volume 11.2 fL (7.4-10.4); Monocytes # 0.9 10^3/uL (0.2-0.9); Monocytes % 12.9 %; Neutrophils % 53.3 %; Nucleated Red Blood Cells % 0 %; Platelet Count 217 10^3/cmm (130-400); Red Blood Count 4.56 10^6/uL (4.1-5.3); Red Cell Distribution Width 14.2 % (12.1-15.1); White Blood Count 6.8 10^3/uL (4.0-10.0)
[2020-11-03 03:18] LABS: Anion Gap 11.1 (5-19); Blood Urea Nitrogen 20 mg/dL (8-23); Calcium 8.2 mg/dL (8.5-10.5); Carbon Dioxide 30 mmol/L (22-29); Chloride 108 mmol/L (98-107); Glucose 106 mg/dL (65-115); Osmolality Calculated 303 mOsm/kg (285-295); Potassium 4.1 mmol/L (3.5-5.1); Sodium 145 mmol/L (136-145)
[2020-11-03] MEDS: pantoprazole DR 40 mg Tablet PO (08:23)
[2020-11-03] MEDS: atorvastatin 40 mg Tablet 80 MG PO (08:23)
[2020-11-03] MEDS: tamsulosin 0.4 mg Capsule PO (08:23)
[2020-11-03] MEDS: lisinopril 20 mg Tablet PO ×2 (08:23→17:30)
[2020-11-03] MEDS: amlodipine 10 mg Tablet PO (08:24)
[2020-11-03] MEDS: carvedilol 25 mg Tablet PO ×2 (08:24→17:30)
[2020-11-03] MEDS: aspirin 325 mg EC Tablet PO (08:24)
[2020-11-03] MEDS: clopidogrel 75 mg Tablet PO (08:24)
[2020-11-03] MEDS: hyDRALAzine 50 mg Tablet PO ×3 (08:24→20:06)
[2020-11-03] MEDS: escitalopram 10 mg Tablet PO (08:24)
[2020-11-03 10:49] LABS: Glucose Point of Care 114 mg/dL (70-110)
--- NOTE | 2020-11-03 12:25 | P.PN_ITS ---
Subjective Subjective: Interval history: Patient was examined this morning, has a right facial droop, mild slurring of his speech, word finding difficulty, he tells me that he feels significantly better, his slurring has improved, he thinks his facial droop has improved, but he still quite unsteady on his feet, which persists, he always has double vision, no nausea, no vomiting, he had a carotid artery ultrasound a few weeks ago which was negative, Vitals/I&O/Wt Last Vital Signs Temp 98.6 F 11/03/20 11:50 Pulse 75 11/03/20 11:50 Resp 20 H 11/03/20 11:50 BP 177/81 11/03/20 11:50 Pulse Ox 95 11/03/20 11:50 Weight last 48 hrs Weight 77.111 kg Physical Exam Const: COMMON NORMALS: no acute distress and patient oriented x3 HENMT: COMMON NORMALS: normocephalic HEAD & SCALP: normocephalic Neck/C-Spine: COMMON NORMALS: no JVD Resp: COMMON NORMALS: normal respiratory effort, No retractions, No use of accessory muscles and clear to auscultation bilaterally AUSCULTATION: clear to auscultation bilaterally Cardio: COMMON NORMALS: no JVD, regular rate, regular rhythm, S1 normal heart sound present and S2 normal heart sound present RATE: regular rate RHYTHM: regular rhythm HEART SOUNDS: S1 normal heart sound present and S2 normal heart sound present GI: COMMON NORMALS: Normal to inspection, nondistended, normoactive bowel sounds present, Soft to palpation, non-tender, No hepatosplenomegaly present, no masses and no bruits PALPATION: Yes Soft to palpation and Yes No hepatosplenomegaly present Extremity: COMMON NORMALS: capillary refill normal, no clubbing, cyanosis or edema, no calf tenderness and no pedal edema Neuro: COMMON NORMALS: patient oriented x3 OTHER: Right facial droop Word finding difficulty Mild slurring of the speech Positive [id number], quite unsteady Psych: COMMON NORMALS: mental status grossly normal Data : 11/03/20 02:50 11/03/20 02:50 A&P Assessment and plan (1) CVA (cerebral vascular accident): Status: Acute (2) Hypertensive urgency: Status: Acute (3) Slurred speech: Status: Acute Additional A&P Information Acute CVA Right facial droop, slurring her speech, word finding difficulty, positive cerebellar signs Improved compared to last night Onset 2-1/2 hours before arrival to the ER NIH 3-4 not a candidate of TPA, hypertensive 235/115 mmHg, received labetalol 20 mg IV push Not complaining of active chest pain He is already on high-dose aspirin and Plavix and statins which I would continue for now Sinus rhythm on EKG Would obtain MRI head to rule out acute infarct patient is stating of 1 week ago carotid Dopplers were done which were unremarkable therefore I would not repeat vascular imaging Obtain speech and physical therapy evaluation Continue IV hydration Avoid aggressive blood pressure control unless systolic is greater than 220 or and/or diastolic rate of 120 Hypertensive urgency improved with labetalol IV push, allow for permissive hypertension for the next 48 hours, increase hydralazine to 50 mg 3 times a day, add amlodipine and continue Coreg and lisinopril Would avoid hydrochlorothiazide considering his age Right leg edema: Negative for DVT Goals of care discussed with the patient, he wants a trial of CPR and intubation if required but does not want to be intubated for prolonged period of time N.p.o. until speech evaluation in the morning DVT prophylaxis Lovenox Attestations Medical Necessity Statement*: Patient requires hospitalization for CVA, requiring MRI, PT OT Coding Level of Care Code Acute Solar Fabrication Technician for Maxim Kim Diagnoses CVA (cerebral vascular accident) I63.9 Hypertensive urgency I16.0 Slurred speech R47.81
--- NOTE | 2020-11-03 12:29 | USCV_ITS ---
Robby Haskins Age: 80 Gender: M : 1940 Exam Date: 11/03/2020 15:45 Ordering Phys: Marcos Aguirre MD Technologist: aJckeline Jean [place] [facility] [place]: STROKE BP: 177 / 81 HR: 66 Rhythm: Sinus Technical Quality: Adequate MEASUREMENTS (Male / Female) Normal Values 2D ECHO LV Diastolic Diameter PLAX 5.0 cm 4.2 - 5.9 / 3.9 - 5.3 cm LV Systolic Diameter PLAX 3.3 cm IVS Diastolic Thickness 1.6 cm 0.6 - 1.0 / 0.6 - 0.9 cm IVS Systolic Thickness 1.7 cm LVPW Diastolic Thickness 1.0 cm 0.6 - 1.0 / 0.6 - 0.9 cm LVPW Systolic Thickness 1.8 cm LVOT Diameter 2.0 cm LV Ejection Fraction 2D Teich 63.6 % LV Ejection Fraction MOD 2C 58.4 % LV Ejection Fraction 2C AL 61.9 % LA Diameter 4.5 cm LA Width 4.2 cm LA Height 5.6 cm RA Width 3.6 cm RA Height 4.9 cm Aorta at Sinotubular Diameter 2.4 cm M-MODE LV Diastolic Diameter MM 5.6 cm 4.2 - 5.9 / 3.9 - 5.3 cm LV Systolic Diameter MM 3.4 cm LV Ejection Fraction MM Teich 67.7 % IVS Diastolic Thickness MM 1.3 cm 0.6 - 1.0 / 0.6 - 0.9 cm IVS Systolic Thickness MM 1.4 cm LVPW Diastolic Thickness MM 1.3 cm 0.6 - 1.0 / 0.6 - 0.9 cm LVPW Systolic Thickness MM 1.8 cm Aortic Annulus Diameter 3.1 cm LA Ao Ratio MM 1.5 MV E Point Septal Separation 0.9 cm DOPPLER AV Peak Velocity 219.3 cm/s LVOT Peak Velocity 89.0 cm/s AV Area Cont Eq vti 1.6 cm squared AV Area Cont Eq pk 1.3 cm squared MV Peak Velocity 150.0 cm/s MV Area PHT 3.7 cm squared Mitral E to A Ratio 2.3 MV E' Velocity 69.0 cm/s Mitral E to MV E' Ratio 33.9 Mitral E to LV E' Lateral Ratio 46.7 Mitral E to LV E' Septal Ratio 27.1 TR Peak Velocity 211.3 cm/s TR Peak Gradient 17.9 mmHg Right Atrial Pressure 3.0 mmHg Pulmonary Artery Systolic Pressu 20.9 mmHg PV Peak Velocity 87.0 cm/s RV Acceleration Time 0.1 s RV Ejection Time 0.3 s RV AcT/ET 0.3 FINDINGS Left Ventricle Normal left ventricular cavity size. Increased left ventricular wall thickness. Mild concentric left ventricular hypertrophy. Normal left ventricular systolic function. Left ventricular ejection fraction is estimated at 55 %. No regional wall motion abnormalities. Grade III diastolic dysfunction (restrictive filling pattern), severely elevated filling pressures. Abnormal (paradoxical) septal motion consistent with postoperative status. Right Ventricle Normal right ventricular size and systolic function, RVSP 20.9 mmHg. Right Atrium Mildly increased right atrial size. Left Atrium Mildly increased left atrial size. Mitral Valve Moderate mitral annular calcification. Thickened mitral valve. No mitral valve stenosis. Mild mitral valve regurgitation. Aortic Valve S/p porcine aortic valve replacement. Bioprosthetic aortic valve in situ normal function. Peak velocity 2.2 m/s, peak gradient 20 mmHg. Mean gradient 9.7 mmHg, TAMMY 1.6 cm squared. No significant valvular or perivalvular regurgitation. Tricuspid Valve Structurally normal tricuspid valve. Mild tricuspid valve regurgitation. Pulmonic Valve Pulmonic valve not well visualized. Trace pulmonary valve regurgitation. Pericardium No pericardial effusion. Aorta Normal-sized aortic root. CONCLUSIONS 1. Normal left ventricular cavity size. Mild concentric left ventricular hypertrophy. Normal left ventricular systolic function. Left ventricular ejection fraction is estimated at 55 %. No regional wall motion abnormalities. Grade III diastolic dysfunction (restrictive filling pattern), severely elevated filling pressures. 2. Normal right ventricular size and systolic function, RVSP 20.9 mmHg. 3. Mildly increased left atrial size. 4. Mild mitral and tricuspid valve regurgitation. 5. Bioprosthetic aortic valve in situ normaly functioning. Peak velocity 2.2 m/s, peak gradient 20 mmHg. Mean gradient 9.7 mmHg, TAMMY 1.6 cm squared. Dimensionless valve index of 0.40. 6. When compared to previous echocardiogram dated 10/15/2018, there may not have been any significant change. Donna Nicole MD (Electronically Signed) Final Date: 05 November 2020 17:25 S
[2020-11-03] MEDS: sodium chloride 0.9% 1,000 ML 75 ML IV (13:22)
[2020-11-04] VITALS (20 sets, daily range): BP systolic 101–174; BP diastolic 46–85; PULSE 64–76; RESP 18–20; TEMP 36.6–36.9; O2SAT 90–96
[2020-11-04] MEDS: heparin 5,000 unit/mL INJ 1 mL 5000 UNIT SUBCUT ×4 (00:23→23:51)
[2020-11-04] MEDS: sodium chloride 0.9% 1,000 ML 75 ML IV (02:27)
[2020-11-04 05:17] LABS: Basophils # 0.1 10^3/uL (0.0-0.1); Basophils % 1.4 %; Eosinophils # 0.3 10^3/uL (0.0-0.8); Eosinophils % 4.8 %; Hematocrit 41.5 % (42.0-52.0); Hemoglobin 12.7 g/dL (11.7-16.6); Lymphocytes # 1.9 10^3/uL (0.8-4.8); Lymphocytes % 25.9 %; Mean Corpuscular HGB Conc 30.6 g/dL (30.0-36.0); Mean Corpuscular Hemoglobin 28.3 pg (28.0-34.0); Mean Corpuscular Volume 92.6 fL (80-94); Mean Platelet Volume 11.4 fL (7.4-10.4); Monocytes # 0.9 10^3/uL (0.2-0.9); Monocytes % 12.1 %; Neutrophils # 3.96 10^3/uL (1.8-7.7); Neutrophils % 55.5 %; Nucleated Red Blood Cells % 0 %; Platelet Count 214 10^3/cmm (130-400); Red Blood Count 4.48 10^6/uL (4.1-5.3); Red Cell Distribution Width 14.4 % (12.1-15.1); White Blood Count 7.1 10^3/uL (4.0-10.0)
[2020-11-04 05:41] LABS: Alanine Aminotransferase 11 U/L (0-41); Albumin Level 3.1 g/dL (3.5-5.2); Alkaline Phosphatase 69 IU/L (40-130); Anion Gap 12.1 (5-19); Aspartate Amino Transferase 14 U/L (0-40); Blood Urea Nitrogen 16 mg/dL (8-23); Calcium 8.5 mg/dL (8.5-10.5); Carbon Dioxide 28 mmol/L (22-29); Chloride 112 mmol/L (98-107); Glucose 101 mg/dL (65-115); Osmolality Calculated 307 mOsm/kg (285-295); Phosphorus 3.4 mg/dL (2.5-4.5); Potassium 4.1 mmol/L (3.5-5.1); Sodium 148 mmol/L (136-145); Total Bilirubin 0.6 mg/dL (0.15-1.2); Total Protein 6.1 g/dL (6.6-8.7)
[2020-11-04] MEDS: amlodipine 10 mg Tablet PO (07:46)
[2020-11-04] MEDS: escitalopram 10 mg Tablet PO (07:46)
[2020-11-04] MEDS: aspirin 325 mg EC Tablet PO (07:46)
[2020-11-04] MEDS: atorvastatin 40 mg Tablet 80 MG PO (07:46)
[2020-11-04] MEDS: carvedilol 25 mg Tablet PO ×2 (07:46→16:51)
[2020-11-04] MEDS: clopidogrel 75 mg Tablet PO (07:46)
[2020-11-04] MEDS: pantoprazole DR 40 mg Tablet PO (07:47)
[2020-11-04] MEDS: lisinopril 20 mg Tablet PO ×2 (07:47→16:51)
[2020-11-04] MEDS: hyDRALAzine 50 mg Tablet PO (07:47)
[2020-11-04] MEDS: tamsulosin 0.4 mg Capsule PO (07:47)
--- NOTE | 2020-11-04 09:38 | PC.CHAP ---
Pastoral Care Encounter/Spiritual Assessment Type of Contact [] Declined professor sculpture visit [] Patient/Family/Request visit [] Outpatient visit [] Follow-up visit [] Physician referral [] Code/Alert [] Routine visit [] Staff referral [] Actively dying [] Patient sleeping [] Family support [] [] Out of room [] Palliative care [] [] Receiving care in room [] Pre-surgical visit [] Trauma [] Long length of stay [] ICU visit [] Other: Relational/Emotional Strength [x] Patient feels connected with others/family/visitors/staff [] Distress [] Loneliness/isolation [] Abandonment Spirituality of Patient [] Person of Aby [] Attends Latter Day of their Aby [] Believes in Prayer [] Reads Bible or Jew materials [] There are Spiritual issues to be addressed Colorist Interventions [x] Prayer [x] Active listening [] Non-anxious presence [] Spiritual/emotional support [] Crisis/trauma care [] Spiritual counseling [] Bereavement support [] Provided bereavement packet [] Provided Bible/devotional materials [] Provided toy/stuffed animal, coloring book to patient or family member [] Provided Communion [] Anointing/[place] [] Salvation [x] Completed spiritual assessment [] Other: Impact on Illness or Injury [] Angry [] Fearful [] Anxious [] Often cries [] Exhaustion [] Unable to work [] Unable to attend episcopalian [] Unable to walk/stand [] Unable to read [] Unable to drive [] Unable to eat/drink [] Unable to sleep [] Unable to be with family [] Patient intubated [] Other: Summary seeing double Time spent with patient 15 min
--- NOTE | 2020-11-04 11:41 | P.PN_ITS ---
Subjective Subjective: Interval history: No acute overnight events, awaiting MRI this afternoon. Medications: Reviewed: Yes Vitals/I&O/Wt Last Vital Signs Temp 98.2 F 11/04/20 11:37 Pulse 66 11/04/20 11:37 Resp 18 11/04/20 11:37 BP 101/46 11/04/20 11:37 Pulse Ox 91 11/04/20 11:37 11/03/20 11/04/20 11/04/20 22:59 06:59 14:59 Intake Total 440 / 440 1101.25 / 1541.25 240 / 240 Output Total 200 / 200 200 / 400 200 / 200 Balance 240 / 240 901.25 / 1141.25 40 / 40 Weight last 48 hrs Weight 77.111 kg Physical Exam Narrative: EXAM NARRATIVE: GEN: Awake, alert and oriented, no acute distress CVS: S1S2 N RS: CTA B/L Abd: Soft, nt/nd , bs+ STRATEGIC PARTNERSHIP SPECIALIST: Right facial droop, dysarthria, ataxic gait Data : 11/04/20 04:35 11/04/20 04:35 A&P Assessment and plan (1) CVA (cerebral vascular accident): Status: Acute (2) Hypertensive urgency: Status: Acute (3) Slurred speech: Status: Acute Additional A&P Information Acute CVA Right facial droop, slurring her speech, word finding difficulty, positive cerebellar signs Improved compared to admission Onset 2-1/2 hours before arrival to the ER NIH 3-4 not a candidate of TPA, hypertensive 235/115 mmHg, received labetalol 20 mg IV push, blood pressure currently well controlled Not complaining of active chest pain He is already on high-dose aspirin and Plavix and statins which I would continue for now Sinus rhythm on EKG 1 week ago carotid Dopplers were done which were unremarkable, pending MRI of the brain today Appreciate therapy assessment. He demonstrated independent bed mobility, STS and transfer to restroom. 1200 feet with walker for stability. Home exercise regimen provided to patient. Overall assessment is that he would benefit from continued skilled therapy to increase independence and return to prior baseline function. We will arrange for outpatient PT OT. Avoid aggressive blood pressure control unless systolic is greater than 220 or and/or diastolic rate of 120 Hypertensive urgency improved with labetalol IV push, allowed for permissive hypertension for the first 48 hours, decrease hydralazine to 25 mg 3 times a day, as SBP at 101 currently, continue amlodipine and continue Coreg and lisinopril Would avoid hydrochlorothiazide considering his age Right leg edema: Negative for DVT Goals of care discussed with the patient, he wants a trial of CPR and intubation if required but does not want to be intubated for prolonged period of time DVT prophylaxis Lovenox Attestations Medical Necessity Statement*: Pending MRI this afternoon. Coding Level of Care Code Acute Balance Wheel Hand Filer for Maxim Kim Diagnoses CVA (cerebral vascular accident) I63.9 Hypertensive urgency I16.0 Slurred speech R47.81
--- NOTE | 2020-11-04 12:21 | XRR_ITS ---
PROCEDURE INFORMATION: Exam: XR Chest, 1 View Exam date and time: 11/04/2020 12:25 PM Age: 80 years old Clinical indication: Dyspnea and wheezing; Prior surgery; Surgery type: Heart; Additional info: Dyspnea, wheezing x 2 months TECHNIQUE: Imaging protocol: XR of the chest Views: 1 view. COMPARISON: CR (CHEST, ) 11/02/2020 9:19 PM FINDINGS: Lungs: Calcified granuloma is seen in the right lower lobe No consolidation. Pleural space: Unremarkable. No pleural effusion. No pneumothorax. Heart/Mediastinum: Unremarkable. No cardiomegaly. Bones/joints: Metallic sternotomy wires are in place. Other findings: Similar findings seen comparing to prior examination. XR/XR chest 1V portable [id number] IMPRESSION: 1. No acute findings. 2. Stable right lung granuloma 3. Status post sternotomy
--- NOTE | 2020-11-04 12:23 | MR_ITS ---
WS: [id number] MRI BRAIN WITHOUT CONTRAST HISTORY: suspect posterior circulation stroke COMPARISON: 10/28/[address] 11/02/2020 TECHNIQUE: Diffusion imaging, multiplanar T1, T2 and FLAIR imaging obtained. No evidence for acute infarct or hemorrhage. Julian-white matter differentiation is normal. Numerous scattered T2 and FLAIR signal hyperintensities beginning at the vertex and extending around the ventricles. 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 Confluent increased signal surrounding the occipital horns. The extent of the the microvascular disease has not changed since 2018. Moderate atrophy bilaterally. Ventricles and extra-axial spaces are normal. No inferior displacement of cerebellar tonsils. The sella turcica and pituitary gland are unremarkabl e. Posterior fossa is also unremarkable. Dural venous sinuses and [place] demonstrate no abnormality on this unenhanced studies. Paranasal sinuses: Mucoperiosteal thickening and retention cysts in the floor the RIGHT maxillary sin us. Mastoid air cells: Normal. Calvarium and scalp: Intact. MR/MR head wo con* [id number] IMPRESSION: 1. No evidence for an acute infarct. 2. Moderate to severe chronic microvascular ischemic disease similar to the pr ior study from 10/28/2018.
[2020-11-04 12:57] LABS: NT Pro B Type Natriuretic Pept 1334 pg/mL (0-450)
[2020-11-04] MEDS: hyDRALAzine 25 mg Tablet PO ×2 (16:51→20:18)
[2020-11-04 20:29] LABS: SARS Covid-2 Antigen Negative (Negative)
[2020-11-05] VITALS (8 sets, daily range): BP systolic 139–168; BP diastolic 75–81; PULSE 64–70; RESP 16–20; TEMP 36.4–36.9; O2SAT 93–96
[2020-11-05 05:44] LABS: Basophils # 0.1 10^3/uL (0.0-0.1); Basophils % 1.1 %; Eosinophils # 0.4 10^3/uL (0.0-0.8); Eosinophils % 5.4 %; Hematocrit 40.5 % (42.0-52.0); Hemoglobin 12.3 g/dL (11.7-16.6); Lymphocytes # 1.7 10^3/uL (0.8-4.8); Lymphocytes % 25.7 %; Mean Corpuscular HGB Conc 30.4 g/dL (30.0-36.0); Mean Corpuscular Hemoglobin 28.3 pg (28.0-34.0); Mean Corpuscular Volume 93.3 fL (80-94); Mean Platelet Volume 11.6 fL (7.4-10.4); Monocytes # 0.8 10^3/uL (0.2-0.9); Monocytes % 11.8 %; Neutrophils # 3.63 10^3/uL (1.8-7.7); Neutrophils % 55.7 %; Nucleated Red Blood Cells % 0 %; Platelet Count 201 10^3/cmm (130-400); Red Blood Count 4.34 10^6/uL (4.1-5.3); Red Cell Distribution Width 14.5 % (12.1-15.1); White Blood Count 6.5 10^3/uL (4.0-10.0)
[2020-11-05 06:04] LABS: Alanine Aminotransferase 10 U/L (0-41); Albumin Level 3.1 g/dL (3.5-5.2); Alkaline Phosphatase 70 IU/L (40-130); Blood Urea Nitrogen 19 mg/dL (8-23); Calcium 8.4 mg/dL (8.5-10.5); Carbon Dioxide 26 mmol/L (22-29); Chloride 107 mmol/L (98-107); Globulin 2.9 g/dL (1.3-4.6); Glucose 87 mg/dL (65-115); Osmolality Calculated 294 mOsm/kg (285-295); Phosphorus 3.7 mg/dL (2.5-4.5); Sodium 141 mmol/L (136-145); Total Bilirubin 0.6 mg/dL (0.15-1.2)
[2020-11-05 06:07] LABS: Anion Gap 12.4 (5-19); Aspartate Amino Transferase 15 U/L (0-40); Potassium 4.4 mmol/L (3.5-5.1)
[2020-11-05] MEDS: escitalopram 10 mg Tablet PO (08:35)
[2020-11-05] MEDS: clopidogrel 75 mg Tablet PO (08:35)
[2020-11-05] MEDS: aspirin 325 mg EC Tablet PO (08:35)
[2020-11-05] MEDS: amlodipine 10 mg Tablet PO (08:35)
[2020-11-05] MEDS: lisinopril 20 mg Tablet PO (08:35)
[2020-11-05] MEDS: tamsulosin 0.4 mg Capsule PO (08:35)
[2020-11-05] MEDS: atorvastatin 40 mg Tablet 80 MG PO (08:35)
[2020-11-05] MEDS: hyDRALAzine 25 mg Tablet PO (08:35)
[2020-11-05] MEDS: carvedilol 25 mg Tablet PO (08:35)
[2020-11-05] MEDS: pantoprazole DR 40 mg Tablet PO (08:35)
[2020-11-05] MEDS: heparin 5,000 unit/mL INJ 1 mL 5000 UNIT SUBCUT (08:36)
--- NOTE | 2020-11-05 12:36 | PM.DCS ---
Discharge Providers Date of Admission: 11/04/20 12:24 Date of Discharge: November 05, 2020 Attending Provider at Admission: Ewa Ramírez MD Attending Provider at Discharge: Shaorn Marcos MD Primary Care Provider: Jv Ro MD Diagnoses at Discharge Discharge Diagnosis (1) CVA (cerebral vascular accident): Status: Acute (2) Hypertensive urgency: Status: Acute (3) Slurred speech: Status: Acute Reason for Visit Reason for Visit: NEURO SYMPTOMS Hospital Course Hospital Course Robby Haskins is a 80 year old male with previous history of CVA(brainstem stroke) with right-sided facial droop(interim PEG tube usage which was removed later on), numbness of right side of his tongue in 2018 presented with chief complaint of worsening weakness. he just started experiencing increased weakness on right side, his right-sided facial droop worsened his speech became slurred associated with some soreness around back of his head & double vision getting worse so he decided to come to the hospital. Recently about 1 week ago carotid Dopplers were done which were unremarkable as per the patient, MRI brain performed during admission course did not show any acute events. Upon admission he was also noted to have hypertensive emergency with blood pressure 235/115 which improved with IV labetalol. His blood pressure medications were adjusted during the course of admission with SBP goal between 1 30-1 40 acceptable. On 1221 he was noted to be dyspneic, with audible wheezing. Reported then that he has a past history of COPD and he needed to use inhalers in the past, however does not use any inhalers consistently. His O2 sat was between 89 to 91% on room air and required supplemental O2 for about 24 hours. With nebulization this was successfully weaned down to room air again. Covid antigen tested was negative. Chest x-ray did not show any gross consolidation. His respiratory status is much improved today at the day of discharge. As needed albuterol inhaler has been added. Also instructed that if he finds himself using this more than 2-3 times a week to follow-up with his primary care provider to initiate LABA and LAMA. Physical Exam Narrative: EXAM NARRATIVE: GEN: Awake, alert and oriented, no acute distress CVS: S1S2 N RS: CTA B/L Abd: Soft, nt/nd , bs+ SENIOR COMPENSATION CONSULTANT: Right facial droop Word finding difficulty Mild slurring of the speech Positive [id number],gait unsteady, mental status grossly normal Discharge Data Data Completed and Pending: Completed Studies During Hospitalization Category Date Time Status CT head wo con* [id number] Stat Cat Scan 11/02/20 20:56 Completed XR chest 1V neo ble [id number] Stat Exams 11/02/20 20:56 Completed XR chest 1V neo ble [id number] Stat Exams 11/04/20 12:21 Completed MR head wo con* [id number] Routine MRI 11/04/20 12:23 [place] [id number] Routin e Ultrasound 11/03/20 00:51 Completed Pending at discharge Category Date Time Status Complete Blood Co unt w/Auto AM LABS Lab 11/06/20 04:00 Ordered Comprehensive Met abolic Panel AM LA BS Lab 11/06/20 04:00 Ordered Magnesium AM LABS Lab 11/06/20 04:00 Ordered Phosphorus AM LAB S Lab 11/06/20 04:00 Ordered MR head wo con* [id number] Routine MRI 11/04/20 14:30 Unverified CV echo complete* [id number] Routine Ultrasound 11/03/20 12:29 Taken Labs from last 24 hours 11/05/20 11/05/20 11/04/20 04:22 04:22 19:20 WBC 6.5 RBC 4.34 Hgb 12.3 Hct 40.5 L MCV 93.3 MCH 28.3 MCHC 30.4 RDW 14.5 Plt Count 201 MPV 11.6 H Neut % (Auto) 55.7 Lymph % (Auto) 25.7 Benzie % (Auto) 11.8 Eos % (Auto) 5.4 Baso % (Auto) 1.1 Neut # (Auto) 3.63 Lymph # (Auto) 1.7 Benzie # (Auto) 0.8 Eos # (Auto) 0.4 Baso # (Auto) 0.1 Nucleated RBC % (a uto) 0 Nucleated RBCs # 0.0 Sodium 141 Potassium 4.4 Chloride 107 Carbon Dioxide 26 Anion Gap 12.4 BUN 19 Creatinine 0.9 GFR Calculation Not Reportable Glucose 87 Calculated Osmolal ity 294 Calcium 8.4 L Phosphorus 3.7 Magnesium 2.0 Total Bilirubin 0.6 AST 15 ALT 10 Alkaline Phosphata se 70 NT-Pro-B Natriuret Pep Total Protein 6.0 L Albumin 3.1 L Globulin 2.9 SARS-CoV-2 Ag (Rap id) Negative 11/04/20 04:35 WBC RBC Hgb Hct MCV MCH MCHC RDW Plt Count MPV Neut % (Auto) Lymph % (Auto) Benzie % (Auto) Eos % (Auto) Baso % (Auto) Neut # (Auto) Lymph # (Auto) Benzie # (Auto) Eos # (Auto) Baso # (Auto) Nucleated RBC % (a uto) Nucleated RBCs # Sodium Potassium Chloride Carbon Dioxide Anion Gap BUN Creatinine GFR Calculation Glucose Calculated Osmolal ity Calcium Phosphorus Magnesium Total Bilirubin AST ALT Alkaline Phosphata se NT-Pro-B Natriuret Pep 1334 H Total Protein Albumin Globulin SARS-CoV-2 Ag (Rap id) Vitals: Last Vital Signs Temp 97.6 F 11/05/20 11:03 Pulse 64 11/05/20 11:03 Resp 16 11/05/20 11:03 BP 168/78 11/05/20 11:03 Pulse Ox 96 11/05/20 11:03 Discharge Plan Discharge Patient Disposition: Home Condition: Stable Prescriptions: New amlodipine 10 mg Tablet 10 mg PO DAILY 30 Days Qty: 30 RF: 0 hydralazine 25 mg Tablet 25 mg PO QID 30 Days Qty: 120 RF: 0 albuterol sulfate 90 mcg/actuation HFA aerosol inhaler 1 inh inhalation Q6H PRN (Reason: shortness of breath or wheezing) Qty: 18 RF: 0 Continued carvedilol 25 mg tablet 25 mg PO BID RF: 0 lisinopril 20 mg tablet 20 mg PO BID RF: 0 clopidogrel 75 mg tablet 75 mg PO DAILY RF: 0 tamsulosin 0.4 mg capsule 0.4 mg PO DAILY RF: 0 pantoprazole 40 mg tablet,delayed release (DR/EC) 40 mg PO DAILY RF: 0 escitalopram oxalate 10 mg tablet 10 mg PO DAILY RF: 0 rosuvastatin 40 mg tablet 40 mg PO DAILY RF: 0 Changed aspirin 81 mg Tablet,Delayed Release (Dr/Ec) 81 mg PO DAILY Qty: 0 RF: 0 Discontinued hydralazine 10 mg tablet 2 tab PO TID RF: 0 Discharge Orders: Discharge Order (Routine); Ordered 11/05/20 Ordered By: Sharon Marcos Other Ambulatory Orders: Occupational Therapy Eval and Treat Outpatient (Order) Timeframe: 3 Weeks Facility: [facility] - Location: Occupational Therapy Ordered By: Sharon Marcos Referrals: Paige Blevins MD [Physician] - 1 month Jv Ro MD [Primary Care Provider] - 4-7 days (hospital discharge follow up, new antihypertensives) Discharge Diet: Cardiac and Low Salt Discharge Activity: As per PT/OT instructions Discharge Attestations Time Spent in Discharge Care*: greater than 30 min Quality Metrics Clinical Quality Measures During this hospital stay, did patient experience: None Coding Level of Care Code Acute Water Quality Analyst for Chg Fwd Diagnoses CVA (cerebral vascular accident) I63.9 Hypertensive urgency I16.0 Slurred speech R47.81
--- NOTE | 2020-11-05 13:46 | PC.RESP ---
PULMONARY REHAB INFORMATION SENT TO PATIENT.
== END 2020-11-05 13:55 | disposition home or self-care (01) ==
LOC: ER 21:12 → MEDSURG 11-03 00:55
PROVIDERS: Family Medicine; Admitting Provider Internal Medicine; Emergency Provider Emergency Medicine; PCP Family Medicine; Visit Provider Student in an Organized Health Care Education/Training Program
DX: I63.9 Cerebral infarction, unspecified (principal); R29.704 NIHSS score 4; R60.0 Localized edema; I16.0 Hypertensive urgency; R47.81 Slurred speech; I69.392 Facial weakness following cerebral infarction; Z79.82 Long term (current) use of aspirin; I25.10 Atherosclerotic heart disease of native coronary artery without angina pectoris; I10 Essential (primary) hypertension; E11.9 Type 2 diabetes mellitus without complications; J44.9 Chronic obstructive pulmonary disease, unspecified; Z95.1 Presence of aortocoronary bypass graft; Z87.891 Personal history of nicotine dependence
CPT/HCPCS: 12345; 36415; 36416; 70450; 70551; 71045; 80048; 80053; 80306; 81003; 82962; 83735; 83880; 84100; 84484; 85025; 85610; 85730; 87426; 92507; 92610; 93005; 93306; 93971; 96361; 96372; 96374; 97110; 97116; 97161; 97165; 97530; 97535; 99284; 99285; G0378; J1644; J3490; J7030

== ENCOUNTER → 2020-12-16 07:58 | Outpatient (BNVA) | payer MEDICARE, SELFPAY | PROVIDERS: PCP Family Medicine; Referring Provider Student in an Organized Health Care Education/Training Program; Visit Provider Specialist | DX: I69.393 Ataxia following cerebral infarction (principal); I10 Essential (primary) hypertension; I65.29 Occlusion and stenosis of unspecified carotid artery; R26.81 Unsteadiness on feet; Z87.891 Personal history of nicotine dependence | CPT/HCPCS: 99205 ==

== ENCOUNTER 2021-01-06 08:18 | Outpatient (CLI) | payer MEDICARE, SELFPAY ==
--- NOTE | 2021-01-06 08:29 | MR_ITS ---
WS: [id number] MRA CAROTID WITHOUT AND WITH GADOLINIUM ENHANCEMENT TECHNIQUE: Axial 2-D TOF and gadolinium bolus images obtained with axial images and axial, sagittal, and coronal 2-D reformatted images. CLINICAL INFORMATION: I63.9 - Cerebral infarction, unspecified COMPARISON: 015 CTA FINDINGS: Both vertebral arteries are patent. Codominant vertebral arteries bilaterally. Right: Right common carotid artery is patent. No significant right ICA stenosis. Right ICA is patent to the skull base. Left: Left common carotid artery is patent. Less than 50% left ICA stenosis with mild atheromatous di sease. Left ICA is patent to the skull base. MR/MR angio neck w con* [id number] IMPRESSION: 1. No significant right ICA stenosis. 2. Mild atheromatous disease left carotid bulb extending into the ICA with les s than 50% stenosis. Left ICA is patent to the skull base. 3. Codominant and patent vertebral arteries bilaterally.
--- NOTE | 2021-01-06 08:45 | MR_ITS ---
WS: [id number] MRI HEAD WITHOUT CONTRAST TECHNIQUE: Sagittal T1, T2 axial, T2 axial FLAIR, axial and coronal T1 images, axial susceptibility w eighted imaging, axial diffusion weighted images, and coronal T2 images were obtained. CLINICAL INFORMATION: I63.9 - Cerebral infarction, unspecified COMPARISON: MRI November 04, 2020 FINDINGS: A few small foci of restricted diffusion new compared to the prior examination consistent with acute ischemia involving the left periventricular frontal white matter and right parasagittal occipital lob e. Largest area of ischemia measures 6 mm the left frontal lobe. No mass effect or midline shift. Adv anced small vessel changes. Advanced parenchymal volume loss. Chronic lacunar infarcts in the cerebel lum. Small vessel changes in the marisol. Moderate pontine and atrophy. Chronic infarct involving the ri ght middle cerebellar peduncle. Normal vascular flow voids at the skull base. No intra-axial fluid collections. Chronic lacunar infarct in the right helton radiata. No hemosiderin on susceptibly weighted images. N ormal optic chiasm and pituitary infundibulum. Advanced symmetric atrophy involving the temporal lobe s hippocampal formations. Normal cavernous sinuses and Meckel's cave. Mild polypoid mucosal thickenin g in the right maxillary sinus. T2 hyperintense intrasellar lesion measuring 10.3 x 7.7 x 9.4 mm. This appears well circumscribed and appears unchanged since 11/29/2014. MR/MR head wo con* [id number] IMPRESSION: 1. 2 small foci of acute ischemia involving the left frontal periventricular w christina matter and right parasagittal occipital lobe described above. 2. No mass effect or midline shift. 3. Advanced small vessel changes with moderate to advanced parenchymal volume loss. 4. Advanced atrophy involving the temporal lobes and hippocampal formations. 5. Moderate central atrophy involving the marisol and midbrain. 6. Chronic lacunar infarcts right helton radiata and left cerebellum. 7. Well-circumscribed T2 hyperintense intrasellar lesion measuring 10.3 x 7.7 x 9.4 unchanged since 2014. Differential considerations include intrasellar cys t or Rathke's cleft cyst.
--- NOTE | 2021-01-06 08:45 | MR_ITS ---
WS: [id number] MRA HEAD TECHNIQUE: Axial 3-D TOF images obtained with axial images and axial, sagittal, and coronal 2-D refor matted images. CLINICAL INFORMATION: I63.9 - Cerebral infarction, unspecified COMPARISON: MRA 2014 FINDINGS: Distal vertebral arteries are patent. Basilar artery is patent. Normal vascularity to the ADMINISTRATIVE MEDICAL DIRECTOR territo ry bilaterally. Both ICAs are patent at the skull base. Normal cavernous carotid arteries. Small right A1 segment. Pa tent anterior communicating artery. Normal vascularity to the ZACARIAS and MCA territories bilaterally. No flow-limiting stenosis or aneurysm. MR/MR angio head wo con [id number] IMPRESSION: 1. Unremarkable intracranial MRA. 2. Intrasellar lesion described on the MRI head.
[2021-01-06] MEDS: gadobenate dimeglumine 20 mL vial IV (10:00)
== END 2021-01-06 08:19 | disposition home or self-care (01) ==
LOC: RADSHAW 08:19
PROVIDERS: PCP Nurse Practitioner Family; Visit Provider Specialist
DX: I63.9 Cerebral infarction, unspecified (principal); I67.82 Cerebral ischemia; G31.9 Degenerative disease of nervous system, unspecified
CPT/HCPCS: 70544; 70548; 70551; A9577

== ENCOUNTER 2021-01-08 06:00 | Outpatient (RCR) | payer MEDICARE, SELFPAY | END 2021-01-12 23:59 | disposition home or self-care (01) | LOC: SPT 06:00 | PROVIDERS: PCP Nurse Practitioner Family; Referring Provider Specialist; Visit Provider Specialist | DX: I63.9 Cerebral infarction, unspecified (principal); R26.81 Unsteadiness on feet | CPT/HCPCS: 97161 ==

== ENCOUNTER 2021-01-13 06:00 | Outpatient (RCR) | payer MEDICARE, SELFPAY | END 2021-02-12 23:59 | disposition home or self-care (01) | LOC: SPT 06:00 | PROVIDERS: PCP Nurse Practitioner Family; Referring Provider Specialist; Visit Provider Specialist | DX: R26.81 Unsteadiness on feet (principal); I63.9 Cerebral infarction, unspecified | CPT/HCPCS: 97110 ==

== ENCOUNTER 2021-04-02 09:22 | Outpatient (CLI) | payer MEDICARE, SELFPAY | END 2021-04-02 09:23 | disposition home or self-care (01) | LOC: WOUND 09:24 | PROVIDERS: PCP Nurse Practitioner Family; Visit Provider Thoracic Surgery (Cardiothoracic Vascular Surgery) | DX: I96 Gangrene, not elsewhere classified (principal); L97.812 Non-pressure chronic ulcer of other part of right lower leg with fat layer exposed | CPT/HCPCS: 11042; 87070; 87075; 87077; 87186; 87205 ==

== ENCOUNTER 2021-04-04 10:50 | Outpatient (CLI) | payer MEDICARE, SELFPAY | END 2021-04-04 10:51 | disposition home or self-care (01) | LOC: WOUND 10:51 | PROVIDERS: PCP Nurse Practitioner Family; Visit Provider Thoracic Surgery (Cardiothoracic Vascular Surgery) | DX: I87.2 Venous insufficiency (chronic) (peripheral) (principal); L97.819 Non-pressure chronic ulcer of other part of right lower leg with unspecified severity | CPT/HCPCS: 29581 ==

== ENCOUNTER 2021-04-09 10:24 | Outpatient (CLI) | payer MEDICARE, SELFPAY | END 2021-04-09 10:25 | disposition home or self-care (01) | LOC: WOUND 10:26 | PROVIDERS: PCP Nurse Practitioner Family; Visit Provider Thoracic Surgery (Cardiothoracic Vascular Surgery) | DX: I87.2 Venous insufficiency (chronic) (peripheral) (principal); L97.812 Non-pressure chronic ulcer of other part of right lower leg with fat layer exposed | CPT/HCPCS: 97597 ==

== ENCOUNTER 2021-04-16 07:59 | Outpatient (CLI) | payer MEDICARE, SELFPAY | END 2021-04-16 08:00 | disposition home or self-care (01) | LOC: WOUND 08:00 | PROVIDERS: PCP Nurse Practitioner Family; Visit Provider Thoracic Surgery (Cardiothoracic Vascular Surgery) | DX: Z09 Encounter for follow-up examination after completed treatment for conditions other than malignant neoplasm (principal) | CPT/HCPCS: 99212 ==

== ENCOUNTER 2021-09-28 19:23 | Observation (INO) | payer MEDICARE, SELFPAY ==
[2021-09-28] VITALS (9 sets, daily range): BP systolic 148–233; BP diastolic 75–117; PULSE 56–67; RESP 16–20; TEMP 36.3; O2SAT 94–96; BMI 26.6
--- NOTE | 2021-09-28 19:59 | CTR_ITS ---
PROCEDURE INFORMATION: Exam: CT Head Without Contrast Exam date and time: 09/28/2021 7:59 PM Age: 81 years old Clinical indication: Walking, difficulty; Patient HX: HX of prev stroke w gait deficits C/O HTN x 10+ days - non compliant w meds; Additional info: AMS, gait TECHNIQUE: Imaging protocol: Computed tomography of the head without contrast. Radiation optimization: All CT scans at this facility use at least one of these dose optimization techniques: automated exposure control; mA and/or kV adjustment per patient size (includes targeted exams where dose is matched to clinical indication); or iterative reconstruction. COMPARISON: MR head wo con* [id number] 01/06/2021 9:04 AM RADIATION DOSE METRICS: Total DLP (mGy-cm): 1662.76 FINDINGS: Brain: There is diffuse cerebral atrophy present, consistent with this patient's age. Periventricular and subcortical white matter low densities are present which at this age likely represent microvascular ischemic change. No evidence for large acute ischemic infarction. Please note acute ischemia can be occult by head CT. Benign globus pallidus calcifications are present. Small chronic lacunar infarct in the left caudate head unchanged from the prior study. Cerebral ventricles: No ventriculomegaly. Paranasal sinuses: Visualized sinuses are unremarkable. No fluid levels. Mastoid air cells: Visualized mastoid air cells are well aerated. Vasculature: Calcified plaque is present within the intracranial vasculature. Bones/joints: Unremarkable. No acute fracture. Soft tissues: Unremarkable. Other findings: CSF density in the sella, unchanged from the prior MRI. CT/CT head wo con* [id number] IMPRESSION: There are senescent changes of the brain as described above. No evidence for large acute ischemic infarction or acute intracranial injury. Radiation Dose CTDIVOL = (mGy): DLP = 1662.76 (mGy-cm)
--- NOTE | 2021-09-28 19:59 | XRR_ITS ---
PROCEDURE INFORMATION: Exam: XR Chest Exam date and time: 09/28/2021 7:59 PM Age: 81 years old Clinical indication: Other: Hypertention; Prior surgery; Surgery date: 6+ months; Surgery type: Open heart; Additional info: [employer]tenions TECHNIQUE: Imaging protocol: XR of the chest. Views: 1 view. COMPARISON: CR XR chest 1V portable [id number] 11/04/2020 12:29 PM FINDINGS: Tubes, catheters and devices: Surgical clips overlie the left neck soft tissues. Lungs: There is a calcified granuloma in the right lung similar to the prior study. Pleural spaces: Unremarkable. No pleural effusion. No pneumothorax. Heart/Mediastinum: Unremarkable. No cardiomegaly. Bones/joints: There are posterior sternotomy changes and postoperative changes overlying the mediastinum. There are degenerative changes in the thoracic spine and across the acromioclavicular joints. XR/XR chest 1V portable [id number] IMPRESSION: No evidence for acute cardiopulmonary disease. Radiation Dose CTDIVOL = (mGy): DLP = (mGy-cm)
--- NOTE | 2021-09-28 20:04 | ED_ITS ---
HPI - General Adult General: Chief complaint: General Medical Stated complaint: Blood Presure High \History heart Problem Time Seen by Provider: 09/28/21 19:46 History of Present Illness: HPI narrative: This patient comes to the emergency department because he has had labile high blood pressure over the past 10 to 14 days. He has a longstanding history of hypertension has been faithful to his prescribed medications. His also has some blood sugar blood pressure readings from today and they have been fluctuating from the 170s to the 210 range. She says this is been typical of what is been going on for the last several days. He does not take any ibuprofen or Aleve. He is a non-smoker. He denies any chest pain shortness of breath or other symptoms concurrently. He is not been sick with fever chills nausea vomiting or diarrhea. He denies hea dache, focal weakness, numbness etc. He had a prior history of stroke without any significant deficits. He thinks he might have been having mini strokes all week. Associated symptoms: Deny chest pain, dyspnea, headache(s), nausea, rash, palpitations or vomiting Review of Systems Const: Denies: fever(s), chills or change in weight Eyes: Denies: change in vision or blurry vision ENMT: Denies: throat pain or odynophagia Card: Denies: chest pain, palpitations or irregular heart rhythm Resp: Denies: dyspnea, productive cough or non-productive cough GI: Denies: abdominal pain, nausea, vomiting, hematemesis or diarrhea : Denies: flank pain, difficulty urinating, dysuria or urinary frequency Musc: Denies: neck pain, back pain, extremity pain or extremity swelling Skin/Breast: Denies: rash Neuro: Denies: headache(s), numbness in extremities, weakness in extremities, sensory changes, dizziness or Slurred speech present Psych: Denies: anxiety or depression Endo: Denies: polyuria or polydipsia All/Imm: Denies: urticaria PFSH ED PFSH: Medical History Arthritis Coronary artery disease Hypertension Peripheral vascular disease Seronegative rheumatoid arthritis 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 Type 2 diabetes mellitus Surgical History 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) S/P carotid endarterectomy Left-sided Family History Other CAD (coronary artery disease) Stroke Social History Smoking and tobacco status: former smoker Alcohol intake: never Housing: House Physical Exam Const: COMMON NORMALS: no acute distress, patient oriented x3, healthy appearing and alert HENMT: COMMON NORMALS: normocephalic and Normal external nose present HEAD & SCALP: normocephalic FACE & SINUS: normal facial exam and sinuses nontender NOSE: Normal external nose present THROAT: other (Mask per protocol) Eye: COMMON NORMALS: Equal, round and reactive pupils present, EOMs intact bilaterally and conjunctivae normal CONJUNCTIVA: Yes conjunctivae normal PUPIL: Yes Equal, round and reactive pupils present Neck/C-Spine: COMMON NORMALS: full ROM, no lymphadenopathy, supple, no meningeal signs, no JVD and No carotid bruits (Surgical scar left neck) Lymph: LYMPHATIC: no lymphadenopathy noted Chest: COMMONS NORMALS: normal inspection of the chest Resp: COMMON NORMALS: normal respiratory effort, No retractions, No use of accessory muscles and clear to auscultation bilaterally AUSCULTATION: clear to auscultation bilaterally Cardio: COMMON NORMALS: no JVD, regular rate, regular rhythm, No murmurs present (Cardio) and Peripheral pulses 2+ throughout RATE: regular rate RHYTHM: regular rhythm PERIPHERAL PULSES: Peripheral pulses 2+ throughout GI: COMMON NORMALS: Normal to inspection, nondistended, normoactive bowel sounds present, Soft to palpation, non-tender, No hepatosplenomegaly present and no masses PALPATION: Yes Soft to palpation and Yes No hepatosplenomegaly present : COMMON NORMALS: Yes no CVA tenderness BLADDER/KIDNEY EXAM: Yes no CVA tenderness Back/Pelvis: COMMON NORMALS: no CVA tenderness, thoracic and lumbar spine normal to inspection, no thoracic nor lumbar tenderness and thoraco-lumbar ROM normal Extremity: COMMON NORMALS: normal to inspection (Support stocking right leg), full ROM, no calf tenderness and no pedal edema Neuro: AVERY COMA SCALE: other (NIH is 0 at this time) COMMON NORMALS: patient oriented x3, moves all extremities, no focal motor deficits, no sensory deficits noted and gait normal SENSORIUM/ORIENTATION: Yes alert MENINGEAL SIGNS: Yes no meningeal signs SPEECH: speech normal MOTOR EXAM: 5/5 motor strength present throughout Course Reevaluation(s): Reevaluation #1: Despite 2 doses of labetalol the patient's pressure is not well controlled at in the 220/110 range. The patient is not having any symptoms however I feel that we need to work more diligently in getting this patient's pressure under control before he can be discharged. We will go ahead and institute a nicardipine drip and put him in a observation status for continued care. Consultations: Consultation #1: Discussed with nighttime hospitalist who will see the patient and continue inpatient care. Vital Signs: Vital signs: Vital Signs Temperature 97.3 F L 09/28/21 19:41 Pulse Rate 60 09/28/21 22:48 Respiratory Rate 16 09/28/21 22:48 Blood Pressure 233/117 09/28/21 22:48 Pulse Oximetry 96 09/28/21 22:48 [facility] - General Adult Lab Data: Labs: Lab Results 09/28/21 09/28/21 19:40 19:40 WBC 7.9 10^3/uL 10^3/ uL (4.0-10.0) RBC 5.24 10^6/uL 10^6 /uL (4.1-5.3) Hgb 15.3 g/dL g/dL (11.7-16.6) Hct 48.0 % % (42.0-52.0) MCV 91.6 fl fl (80-94) MCH 29.2 pg pg (28.0-34.0) MCHC 31.9 g/dL g/dL (30.0-36.0) RDW 13.7 % % (12.1-15.1) Plt Count 258 10^3/cmm 10^3 /cmm (130-400) MPV 11.7 fL H fL (7.4-10.4) Neut % (Auto) 54.4 % % Lymph % (Auto) 25.4 % % [place] % (Auto) 13.5 % % Eos % (Auto) 5.4 % % Baso % (Auto) 1.0 % % Neut # (Auto) 4.28 10^3/uL 10^3 /uL (1.8-7.7) Lymph # (Auto) 2.0 10^3/uL 10^3/ uL (0.8-4.8) [place] # (Auto) 1.1 10^3/uL H 10^ 3/uL (0.2-0.9) Eos # (Auto) 0.4 10^3/uL 10^3/ uL (0.0-0.8) Baso # (Auto) 0.1 10^3/uL 10^3/ uL (0.0-0.1) Nucleated RBC % (a uto) 0 % % Nucleated RBCs # 0.0 /100WBC /100W BC Sodium 143 mmol/L mmol/L (136-145) Potassium 3.7 mmol/L mmol/L (3.5-5.1) Chloride 103 mmol/L mmol/L (98-107) Carbon Dioxide 30 mmol/L H mmol/ L (22-29) Anion Gap 13.7 (5-19) BUN 20 mg/dL mg/dL (8-23) Creatinine 1.2 mg/dL mg/dL (0.7-1.2) GFR Calculation Not Reportable Glucose 98 mg/dL mg/dL (65-115) Calculated Osmolal ity 299 mOsm/kg H mOs m/kg (285-295) Calcium 8.5 mg/dL mg/dL (8.5-10.5) Magnesium 1.8 mg/dL mg/dL (1.7-2.3) Total Bilirubin 0.4 mg/dL mg/dL (0.15-1.2) AST 15 U/L U/L (0-40) ALT 13 U/L U/L (0-41) Alkaline Phosphata se 78 IU/L IU/L (40-130) Total Protein 7.2 g/dL g/dL (6.6-8.7) Albumin 3.6 g/dL g/dL (3.5-5.2) Globulin 3.6 g/dL g/dL (1.3-4.6) Imaging Data^: CT Head: Radiologist's impression: Radiologist reviewed head CT showed chronic changes but no acute ischemic changes. CXR: Radiologist's impression: No acute disease noted EKG Data^: EKG 1: Attestation: I personally reviewed and interpreted this EKG as follows: (EKG shows a sinus bradycardia 55 bpm. He has some baseline irritability. He has normal intervals does have a leftward axis consistent with a left anterior hemoblock. No acute ST-T wave changes noted.) Computer generated interpretation: Chest X-Ray 09/28/21 19:59 IMPRESSION: No evidence for acute cardiopulmonary disease. Radiation Dose CTDIVOL = (mGy): DLP = (mGy-cm) Head CT 09/28/21 19:59 IMPRESSION: There are senescent changes of the brain as described above. No evidence for large acute ischemic infarction or acute intracranial injury. Radiation Dose CTDIVOL = (mGy): DLP = 1662.76 (mGy-cm) Discharge Plan Discharge Patient Disposition: Placed in Observation Clinical Impression: Accelerated hypertension Coding Level of Care Code ED Pattern Lease Inspector for Maxim Fwd Exam Comprehensive
[2021-09-28 20:18] LABS: Basophils # 0.1 10^3/uL (0.0-0.1); Eosinophils # 0.4 10^3/uL (0.0-0.8); Eosinophils % 5.4 %; Hemoglobin 15.3 g/dL (11.7-16.6); Lymphocytes % 25.4 %; Mean Corpuscular HGB Conc 31.9 g/dL (30.0-36.0); Mean Corpuscular Hemoglobin 29.2 pg (28.0-34.0); Mean Corpuscular Volume 91.6 fl (80-94); Mean Platelet Volume 11.7 fL (7.4-10.4); Monocytes # 1.1 10^3/uL (0.2-0.9); Monocytes % 13.5 %; Neutrophils # 4.28 10^3/uL (1.8-7.7); Neutrophils % 54.4 %; Nucleated Red Blood Cells % 0 %; Platelet Count 258 10^3/cmm (130-400); Red Blood Count 5.24 10^6/uL (4.1-5.3); Red Cell Distribution Width 13.7 % (12.1-15.1); White Blood Count 7.9 10^3/uL (4.0-10.0)
[2021-09-28] MEDS: labetalol 5 mg/mL SDV 20mL 10 MG IVP ×2 (20:33→21:54)
[2021-09-28 20:34] LABS: Alanine Aminotransferase 13 U/L (0-41); Albumin Level 3.6 g/dL (3.5-5.2); Alkaline Phosphatase 78 IU/L (40-130); Anion Gap 13.7 (5-19); Aspartate Amino Transferase 15 U/L (0-40); Blood Urea Nitrogen 20 mg/dL (8-23); Calcium 8.5 mg/dL (8.5-10.5); Carbon Dioxide 30 mmol/L (22-29); Chloride 103 mmol/L (98-107); Globulin 3.6 g/dL (1.3-4.6); Glucose 98 mg/dL (65-115); Magnesium 1.8 mg/dL (1.7-2.3); Osmolality Calculated 299 mOsm/kg (285-295); Potassium 3.7 mmol/L (3.5-5.1); Sodium 143 mmol/L (136-145); Total Bilirubin 0.4 mg/dL (0.15-1.2); Total Protein 7.2 g/dL (6.6-8.7)
--- NOTE | 2021-09-28 21:42 | ECG_ITS ---
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 Measurements Intervals Taylor Rate: 55 P: 86 MT: 174 QRS: -66 QRSD: 145 T: 66 QT: 512 QTc: 491 Interpretive Statements SINUS BRADYCARDIA RIGHT BUNDLE BRANCH BLOCK [120+ ms QRS DURATION, UPRIGHT V1, 40+ ms S IN I/aVL/V4/V5/V6] LEFT ANTERIOR FASCICULAR BLOCK [QRS AXIS <= -45, QR IN I, RS IN II] Compared to ECG 11/03/2020 03:28:37 Sinus rhythm no longer present Electronically Signed On 09-30-2021 12:42:24 SOLAR ELECTRIC INSTALLER by Donna Nicole M.D. [id number]
[2021-09-28] MEDS: nicardipine 20 MG/200 ML PREMIX 50 MG IV (22:48)
--- NOTE | 2021-09-28 23:16 | PM.HP ---
Providers/Chief Complaint Primary Care Provider: Rachelle Beckett NP Chief Complaint: Blood Presure High \History heart Problem History of Present Illness Robby Haskins is a 81 year old male with past medical history of hypertension, dyslipidemia, BPH, CVA who is presenting to emergency room due to complaints of abnormal blood pressure elevation. Emergency room the blood pressure is above 200. The patient reports associated mild headache. CT of the head and chest x-ray were unremarkable. EKG didn't show any acute ischemic changes. The patient is started on nicardipine drip. Feels a little better. He denies any chest pain, cough, palpitations, nausea. He reports significant weight gain recently. He reports taking his medications regularly. He reports chronic shortness of breath which has worsened when his blood pressure increased. Review of Systems General: Reports: 10 or more systems reviewed and unremarkable except in HPI and below Medications/Allergies Home Medications Medication Instructions Recorded Confirmed Last Taken Type carvedilol 25 mg PO BID 01/30/20 12/16/20 11/02/20 History clopidogrel 75 mg PO DAILY 01/30/20 12/16/20 11/02/20 History escitalopram oxalate 10 mg PO DAILY 01/30/20 12/16/20 11/02/20 History lisinopril 20 mg PO BID 01/30/20 12/16/20 11/02/20 History pantoprazole 40 mg PO DAILY 01/30/20 12/16/20 11/02/20 History rosuvastatin 40 mg PO DAILY 01/30/20 12/16/20 11/01/20 History tamsulosin 0.4 mg PO DAILY 01/30/20 12/16/20 11/02/20 History albuterol sulfate 1 inh INHALATION Q6H PRN #18 g 11/05/20 12/16/20 Unknown Rx aspirin 81 mg PO DAILY #0 tab 11/05/20 12/16/20 11/02/20 Rx sulfamethoxazole 800 1 tab PO BID #14 tab 04/02/21 Unknown Rx mg-trimethoprim 160 mg tablet Allergies Allergy/AdvReac Type Severity Reaction Status Date / Time No Known Allergies Allergy Verified 12/16/20 08:06 PFSH Acute PFSH: Medical History Arthritis Coronary artery disease Hypertension Peripheral vascular disease Seronegative rheumatoid arthritis 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 No acute distress. Mood and affect are appropriate. Responses are adequate. Normal speech. Skin warm and dry. Moist mucous brains Eyes PERRL, extraocular muscles are intact Neck supple. No JVD Lungs are clear to auscultation bilaterally. No wheezes or crackles Heart S1, S2, regular Abdomen soft, nontender, bowel sounds are present Extremities trace edema no cyanosis no calf tenderness bilaterally Neuro examination is nonfocal. Data : 09/28/21 19:40 09/28/21 19:40 Other Labs: Laboratory Results WBC 7.9 10^3/uL (4.0-10.0) 09/28/21 19:40 RBC 5.24 10^6/uL (4.1-5.3) 09/28/21 19:40 Hgb 15.3 g/dL (11.7-16.6) 09/28/21 19:40 Hct 48.0 % (42.0-52.0) 09/28/21 19:40 MCV 91.6 fl (80-94) 09/28/21 19:40 MCH 29.2 pg (28.0-34.0) 09/28/21 19:40 MCHC 31.9 g/dL (30.0-36.0) 09/28/21 19:40 RDW 13.7 % (12.1-15.1) 09/28/21 19:40 Plt Count 258 10^3/cmm (130-400) 09/28/21 19:40 MPV 11.7 fL (7.4-10.4) H 09/28/21 19:40 Neut % (Auto) 54.4 % 09/28/21 19:40 Lymph % (Auto) 25.4 % 09/28/21 19:40 [place] % (Auto) 13.5 % 09/28/21 19:40 Eos % (Auto) 5.4 % 09/28/21 19:40 Baso % (Auto) 1.0 % 09/28/21 19:40 Neut # (Auto) 4.28 10^3/uL (1.8-7.7) 09/28/21 19:40 Lymph # (Auto) 2.0 10^3/uL (0.8-4.8) 09/28/21 19:40 [place] # (Auto) 1.1 10^3/uL (0.2-0.9) H 09/28/21 19:40 Eos # (Auto) 0.4 10^3/uL (0.0-0.8) 09/28/21 19:40 Baso # (Auto) 0.1 10^3/uL (0.0-0.1) 09/28/21 19:40 Nucleated RBC % (auto) 0 % 09/28/21 19:40 Nucleated RBCs # 0.0 /100WBC 09/28/21 19:40 Sodium 143 mmol/L (136-145) 09/28/21 19:40 Potassium 3.7 mmol/L (3.5-5.1) 09/28/21 19:40 Chloride 103 mmol/L (98-107) 09/28/21 19:40 Carbon Dioxide 30 mmol/L (22-29) H 09/28/21 19:40 Anion Gap 13.7 (5-19) 09/28/21 19:40 BUN 20 mg/dL (8-23) 09/28/21 19:40 Creatinine 1.2 mg/dL (0.7-1.2) 09/28/21 19:40 GFR Calculation Not Reportable 09/28/21 19:40 Glucose 98 mg/dL (65-115) 09/28/21 19:40 Calculated Osmolality 299 mOsm/kg (285-295) H 09/28/21 19:40 Calcium 8.5 mg/dL (8.5-10.5) 09/28/21 19:40 Magnesium 1.8 mg/dL (1.7-2.3) 09/28/21 19:40 Total Bilirubin 0.4 mg/dL (0.15-1.2) 09/28/21 19:40 AST 15 U/L (0-40) 09/28/21 19:40 ALT 13 U/L (0-41) 09/28/21 19:40 Alkaline Phosphatase 78 IU/L (40-130) 09/28/21 19:40 Total Protein 7.2 g/dL (6.6-8.7) 09/28/21 19:40 Albumin 3.6 g/dL (3.5-5.2) 09/28/21 19:40 Globulin 3.6 g/dL (1.3-4.6) 09/28/21 19:40 Impressions Chest X-Ray 09/28/21 19:59 IMPRESSION: No evidence for acute cardiopulmonary disease. Radiation Dose CTDIVOL = (mGy): DLP = (mGy-cm) Head CT 09/28/21 19:59 IMPRESSION: There are senescent changes of the brain as described above. No evidence for large acute ischemic infarction or acute intracranial injury. Radiation Dose CTDIVOL = (mGy): DLP = 1662.76 (mGy-cm) A&P Assessment and plan (1) Hypertensive urgency: Status: Acute Additional A&P Information 81-year-old male with past medical history of hypertension, CVA, BPH, hyperlipidemia, depression who is presenting with complaints of elevated blood pressure. The patient has hypertensive urgency. Started on nicardipine drip. We'll go to ICU. We'll resume his home medications. We'll adjust if necessary depending on the blood pressure and other vital signs. CODE STATUS. He wants to be full code. The plan of care was discussed with the patient. He verbalized understanding and agreement. Attestations Medical Necessity Statement*: Critical care time spent on this encounter is 35 minutes. Coding Level of Care Code Acute Jelly Filter Tender for Maxim Kim Diagnoses Hypertensive urgency I16.0
--- NOTE | 2021-09-28 23:34 | PC.NURSE ---
BP 169/76 10 MIN AFTER STOPPING CARDIAC DRIP.
[2021-09-29] VITALS (9 sets, daily range): BP systolic 159–200; BP diastolic 77–94; PULSE 60–66; RESP 18–96; TEMP 36.1–36.2; O2SAT 90–95
[2021-09-29] MEDS: labetalol 5 mg/mL SDV 20mL 10 MG IVP ×3 (00:09→05:31)
--- NOTE | 2021-09-29 09:25 | PC.CHAP ---
Pastoral Care Encounter/Spiritual Assessment Type of Contact [] Declined batter depositor visit [] Patient/Family/Request visit [] Outpatient visit [] Follow-up visit [] Physician referral [] Code/Alert [x] Routine visit [] Staff referral [] Actively dying [] Patient sleeping [x] Family support [] [] Out of room [] Palliative care [] [] Receiving care in room [] Pre-surgical visit [] Trauma [] Long length of stay [] ICU visit [] Other: Relational/Emotional Strength [] Patient feels connected with others/family/visitors/staff [] Distress [] Loneliness/isolation [] Abandonment Spirituality of Patient [] Person of Aby [] Attends Confucianist of their Aby [] Believes in Prayer [] Reads Bible or Mu-Ism materials [] There are Spiritual issues to be addressed Cable Television Line Technician Interventions [x Prayer [x] Active listening [x] Non-anxious presence [x] Spiritual/emotional support [] Crisis/trauma care [] Spiritual counseling [] Bereavement support [] Provided bereavement packet [] Provided Bible/devotional materials [] Provided toy/stuffed animal, coloring book to patient or family member [] Provided Communion [] Anointing/Fork [] Salvation [x] Completed spiritual assessment [] Other: Impact on Illness or Injury [] Angry [] Fearful [] Anxious [] Often cries [] Exhaustion [] Unable to work [] Unable to attend zoroastrian [] Unable to walk/stand [] Unable to read [] Unable to drive [] Unable to eat/drink [] Unable to sleep [] Unable to be with family [] Patient intubated [] Other: Summary patient (JW) and son allowed batter depositor to pray.. delightful people.. Time spent with patient 5 min
--- NOTE | 2021-09-29 09:37 | PC.PHAR ---
pts daughter elda [phone] verified pts medications
[2021-09-29] MEDS: escitalopram 10 mg Tablet PO (09:52)
[2021-09-29] MEDS: clopidogrel 75 mg Tablet PO (09:52)
--- NOTE | 2021-09-29 11:25 | P.DS_ITS ---
Discharge Providers Date of Admission: 09/28/21 23:00 Date of Discharge: September 29, 2021 Attending Provider at Admission: Sulaiman Aj Attending Provider at Discharge: Ewa Ramírez MD Primary Care Provider: Rachelle Beckett NP Diagnoses at Discharge Discharge Diagnosis (1) Hypertensive urgency: Status: Acute Reason for Visit Reason for Visit: Blood Presure High \History heart Problem Hospital Course Hospital Course 81-year-old male who was admitted overnight for management of hypertensive urgency, he was put on Cardene drip which was discontinued within few hours of his admission in the hospital. Patient did not experience any endorgan damage such as headache, blurry vision, MICHAELA, chest pain or troponin leak. On my evaluation next day his blood pressure was 160/80mmhg, he was asymptomatic and eager to go home. I did review his home medications with him and his son. The only medication that I am planning to add at this point will be amlodipine 10 mg daily, he is already taking lisinopril 40 mg daily, Lasix 20 mg daily, Coreg 25 mg twice a day, hydralazine 20 mg 3 times a day, tamsulosin. He does meet criteria for resistant hypertension, I requested patient to maintain a blood pressure diary and follow-up with his PCP. His heart rate has been ranging between 60-65 and reluctant to go up on his AV kednra blocking agent, clinically he does look euvolemic, he still has room to go up on hydralazine which can be decided after his PCP appointment. Physical Exam Narrative: EXAM NARRATIVE: Patient looks euvolemic S1, S2 sinus rhythm Blood pressure 159/80 Son at the bedside Nonfocal neuro exam S1, S2 Abdomen soft Lower extremity no edema I did ask patient to walk around, no signs of lightheadedness or fatigue He does use walker at home No acute restaurant distress saturating well on room air Discharge Data Data Completed and Pending: Completed Studies During Hospitalization Category Date Time Status CT head wo con* 7 0450 Urgent Cat Scan 09/28/21 19:59 Completed XR chest 1V neo ble [id number] Urgent Exams 09/28/21 19:59 Completed Labs from last 24 hours 09/28/21 09/28/21 19:40 19:40 WBC 7.9 RBC 5.24 Hgb 15.3 Hct 48.0 MCV 91.6 MCH 29.2 MCHC 31.9 RDW 13.7 Plt Count 258 MPV 11.7 H Neut % (Auto) 54.4 Lymph % (Auto) 25.4 Chambers % (Auto) 13.5 Eos % (Auto) 5.4 Baso % (Auto) 1.0 Neut # (Auto) 4.28 Lymph # (Auto) 2.0 Chambers # (Auto) 1.1 H Eos # (Auto) 0.4 Baso # (Auto) 0.1 Nucleated RBC % (a uto) 0 Nucleated RBCs # 0.0 Sodium 143 Potassium 3.7 Chloride 103 Carbon Dioxide 30 H Anion Gap 13.7 BUN 20 Creatinine 1.2 GFR Calculation Not Reportable Glucose 98 Calculated Osmolal ity 299 H Calcium 8.5 Magnesium 1.8 Total Bilirubin 0.4 AST 15 ALT 13 Alkaline Phosphata se 78 Total Protein 7.2 Albumin 3.6 Globulin 3.6 Vitals: Last Vital Signs Temp 97 F L 09/29/21 03:46 Pulse 66 09/29/21 10:00 Resp 27 H 09/29/21 10:00 BP 159/80 09/29/21 10:00 Pulse Ox 90 09/29/21 10:00 Discharge Plan Discharge Patient Disposition: Home Condition: Stable Prescriptions: New amlodipine 10 mg tablet 10 mg PO DAILY Qty: 30 RF: 3 Continued carvedilol 25 mg tablet 25 mg PO BID RF: 0 clopidogrel 75 mg tablet 75 mg PO DAILY RF: 0 tamsulosin 0.4 mg capsule 0.4 mg PO DAILY RF: 0 pantoprazole 40 mg tablet,delayed release (DR/EC) 40 mg PO DAILY RF: 0 escitalopram oxalate 10 mg tablet 10 mg PO DAILY RF: 0 rosuvastatin 40 mg tablet 40 mg PO DAILY RF: 0 albuterol sulfate 90 mcg/actuation HFA aerosol inhaler 1 inh inhalation Q6H PRN (Reason: shortness of breath or wheezing) Qty: 18 RF: 0 aspirin 81 mg Tablet,Delayed Release (Dr/Ec) 81 mg PO DAILY Qty: 0 RF: 0 hydralazine 10 mg tablet 20 mg PO TID Qty: 90 RF: 3 lisinopril 20 mg tablet 20 mg PO BID Qty: 60 RF: 3 furosemide 20 mg tablet 20 mg PO DAILY Qty: 30 RF: 2 Discharge Orders: Discharge Order (Routine); Ordered 09/29/21 Ordered By: Ewa Ramírez Referrals: Rachelle Beckett NP [Primary Care Provider] - 10/07/21 11:00 am (You have a hospital followup with BHARATHI Kelly at [facility] on October 07 at 11:00am) Patient Instructions: Amlodipine (By mouth) (Hypertenipine-2.5, Norvasc), Opioid Safety Discharge Attestations Time Spent in Discharge Care*: less than 30 min Quality Metrics Clinical Quality Measures During this hospital stay, did patient experience: None Coding Level of Care Code Acute [facility] note Diagnoses Hypertensive urgency I16.0
--- NOTE | 2021-09-29 19:31 | PC.NURSE ---
Pt discharged home. pt IV removed no redness or swelling noted. Pts discharge instructions given along with prescriptions and follow up appointment. Pt had no c/o pain or discomfort at the time of discharge.
== END 2021-09-29 12:30 | disposition home or self-care (01) ==
LOC: ER 23:31 → CSU 23:43
PROVIDERS: Admitting Provider Internal Medicine; Emergency Provider Emergency Medicine; PCP Nurse Practitioner Family; Visit Provider Internal Medicine
DX: I16.0 Hypertensive urgency (principal); I10 Essential (primary) hypertension; I25.10 Atherosclerotic heart disease of native coronary artery without angina pectoris; I73.9 Peripheral vascular disease, unspecified; J44.9 Chronic obstructive pulmonary disease, unspecified; E11.9 Type 2 diabetes mellitus without complications; Z95.2 Presence of prosthetic heart valve; Z87.891 Personal history of nicotine dependence; Z95.1 Presence of aortocoronary bypass graft
CPT/HCPCS: 70450; 71045; 80053; 83735; 85025; 93005; 96374; 96375; 96376; 99285; G0378; J3490

== ENCOUNTER → 2022-04-03 13:07 | Outpatient (BNVA) | payer MEDICARE, SELFPAY | PROVIDERS: PCP Nurse Practitioner Family; Visit Provider Surgery | DX: I96 Gangrene, not elsewhere classified (principal); L97.811 Non-pressure chronic ulcer of other part of right lower leg limited to breakdown of skin | CPT/HCPCS: 97597; 99213 ==

== ENCOUNTER → 2022-04-10 12:28 | Outpatient (BNVA) | payer MEDICARE, SELFPAY | PROVIDERS: PCP Nurse Practitioner Family; Visit Provider Surgery | DX: I96 Gangrene, not elsewhere classified (principal); I87.2 Venous insufficiency (chronic) (peripheral); L97.811 Non-pressure chronic ulcer of other part of right lower leg limited to breakdown of skin | CPT/HCPCS: 97597 ==

== ENCOUNTER → 2022-04-17 13:48 | Outpatient (BNVA) | payer MEDICARE, SELFPAY | PROVIDERS: PCP Nurse Practitioner Family; Visit Provider Surgery | DX: I87.2 Venous insufficiency (chronic) (peripheral) (principal); I96 Gangrene, not elsewhere classified; L97.811 Non-pressure chronic ulcer of other part of right lower leg limited to breakdown of skin | CPT/HCPCS: 97597 ==

== ENCOUNTER → 2022-04-20 10:06 | Outpatient (BNVA) | payer MEDICARE, SELFPAY | PROVIDERS: PCP Nurse Practitioner Family; Visit Provider Thoracic Surgery (Cardiothoracic Vascular Surgery) | DX: L97.811 Non-pressure chronic ulcer of other part of right lower leg limited to breakdown of skin (principal); I87.2 Venous insufficiency (chronic) (peripheral) | CPT/HCPCS: 29581 ==

== ENCOUNTER → 2022-04-24 11:24 | Outpatient (BNVA) | payer MEDICARE, SELFPAY | PROVIDERS: PCP Nurse Practitioner Family; Visit Provider Nurse Practitioner Family | DX: Z09 Encounter for follow-up examination after completed treatment for conditions other than malignant neoplasm (principal) | CPT/HCPCS: 99212 ==

== ENCOUNTER → 2022-09-01 10:50 | Outpatient (BNVA) | payer MEDICARE, SELFPAY | PROVIDERS: Visit Provider Family Medicine | DX: I10 Essential (primary) hypertension (principal); I25.810 Atherosclerosis of coronary artery bypass graft(s) without angina pectoris; I63.9 Cerebral infarction, unspecified; F41.8 Other specified anxiety disorders; K21.9 Gastro-esophageal reflux disease without esophagitis; E78.2 Mixed hyperlipidemia; N40.0 Benign prostatic hyperplasia without lower urinary tract symptoms; R47.81 Slurred speech; E11.9 Type 2 diabetes mellitus without complications | CPT/HCPCS: 80053; 80061; 83036; 84153; 84443; 85025 ==

== ENCOUNTER → 2023-02-08 09:59 | Outpatient (BNVA) | payer MEDICARE, SELFPAY | PROVIDERS: Visit Provider Family Medicine | DX: C44.91 Basal cell carcinoma of skin, unspecified (principal); D48.5 Neoplasm of uncertain behavior of skin | CPT/HCPCS: 88304 ==

== ENCOUNTER → 2023-06-07 15:26 | Outpatient (BNVA) | payer MEDICARE, SELFPAY | PROVIDERS: PCP Family Medicine; Visit Provider Family Medicine | DX: E78.5 Hyperlipidemia, unspecified (principal); E11.9 Type 2 diabetes mellitus without complications; I25.10 Atherosclerotic heart disease of native coronary artery without angina pectoris; N40.0 Benign prostatic hyperplasia without lower urinary tract symptoms; I63.9 Cerebral infarction, unspecified; Z12.5 Encounter for screening for malignant neoplasm of prostate; R47.81 Slurred speech | CPT/HCPCS: 80053; 80061; 83036; 84443; 85025; G0103 ==

== ENCOUNTER 2023-08-18 21:37 | Emergency (ER) | payer MEDICARE, SELFPAY ==
[2023-08-18 21:40] VITALS: BP 166/72; PULSE 83; RESP 19; TEMP 37.1; O2SAT 93; BMI 28.1
--- NOTE | 2023-08-18 21:44 | XRR_ITS ---
PROCEDURE INFORMATION: Exam: XR Chest Exam date and time: 08/18/2023 9:59 PM Age: 83 years old Clinical indication: Shortness of breath; Prior surgery; Surgery date: 6+ months; Surgery type: Heart valve; Additional info: SOA TECHNIQUE: Imaging protocol: Radiologic exam of the chest. Views: 1 view. COMPARISON: CR XR chest 1V portable [id number] 09/28/2021 8:10 PM FINDINGS: Tubes, catheters and devices: Clips in the left neck. Heart valve prosthesis. Lungs: Calcified granuloma in the right lung. Discoid atelectasis in the left lung base. The lungs otherwise are clear. Pleural spaces: Unremarkable. No pleural effusion. No pneumothorax. Heart/Mediastinum: Unremarkable. No cardiomegaly. Bones/joints: Sternotomy wires. XR/XR chest 1V [id number] IMPRESSION: No acute findings.
[2023-08-18 21:58] LABS: Basophils # 0.1 10^3/uL (0.0-0.1); Basophils % 0.6 %; Eosinophils # 0.4 10^3/uL (0.0-0.8); Eosinophils % 4.7 %; Hematocrit 42.8 % (37-53); Lymphocytes % 21.8 %; Mean Corpuscular Hemoglobin 28.2 pg (27-33); Mean Corpuscular Volume 88.2 fl (82-101); Mean Platelet Volume 11.3 fL (7.4-10.4); Monocytes # 1.3 10^3/uL (0.2-0.9); Monocytes % 13.6 %; Neutrophils # 5.48 10^3/uL (1.8-7.7); Neutrophils % 58.8 %; Nucleated Red Blood Cells % 0 %; Platelet Count 188 10^3/cmm (157-399); Red Blood Count 4.85 10^6/uL (3.85-5.65); Red Cell Distribution Width 14.4 % (12.1-15.1); White Blood Count 9.33 10^3/uL (3.29-11.43)
--- NOTE | 2023-08-18 22:17 | W.ED.SOB ---
HPI - SOB/Dyspnea General: Chief Complaint: Shortness of Breath/Dyspnea Stated Complaint: shortness of breath Time Seen by Provider: 08/18/23 21:41 Source: patient Mode of arrival: wheelchair Limitations: no limitations History of Present Illness: HPI Narrative: Patient presents to the emergency department today accompanied by family for evaluation treatment of complaints for increased shortness of breath. Patient reports noticing symptoms starting about 3 days ago with severe worsening today. He states he has had some cough with a little bit of sputum but no sore throat, headache, fever, or nasal congestion to report. No recent GI symptoms. Patient told the nurse she has no history of COPD however, patient has COPD listed in his active problem list. Patient also has an inhaler on his active medications list. Patient denies pain in the chest. He reports a mild headache as well. 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 He is joking and provides his own history. Eye: COMMON NORMALS: Equal, round and reactive pupils present, EOMs intact bilaterally and conjunctivae normal CONJUNCTIVA: Yes conjunctivae normal PUPIL: Yes Equal, round and reactive pupils present Neck/C-Spine: COMMON NORMALS: no JVD Lymph: LYMPHATIC: no lymphadenopathy noted Resp: COMMON NORMALS: normal respiratory effort, No retractions and No use of accessory muscles OTHER: Diminished lung sounds bilaterally. No obvious wheezing on initial exam. Pulse ox 95% on room air. Cardio: COMMON NORMALS: no JVD and regular rate RATE: regular rate : COMMON NORMALS: Yes no CVA tenderness BLADDER/KIDNEY EXAM: Yes no CVA tenderness Back/Pelvis: COMMON NORMALS: no CVA tenderness, thoracic and lumbar spine normal to inspection and thoraco-lumbar ROM normal Extremity: COMMON NORMALS: normal to inspection, full ROM and no pedal edema Neuro: COMMON NORMALS: patient oriented x3 SENSORIUM/ORIENTATION: Yes alert Psych: COMMON NORMALS: mental status grossly normal, Normal thought process present and cooperative THOUGHT PROCESS: Normal thought process present Skin: COMMON NORMALS: no rashes or lesions noted and turgor normal GENERAL SKIN EXAM: no rashes or lesions noted and turgor normal Course Vital Signs: Vital signs: Vital Signs Temperature 98.7 F 08/18/23 21:40 Pulse Rate 75 08/18/23 23:17 Respiratory Rate 20 H 08/18/23 23:10 Blood Pressure 166/72 08/18/23 21:40 Pulse Oximetry 95 08/18/23 23:17 Oxygen Delivery Me thod Room Air 08/18/23 23:17 MDM - SOB/Dyspnea Medical Decision Making Patient's evaluation here revealed no acute concerns regarding cardiac involvement. No signs of cardiomegaly or pleural effusion on chest x-ray. No signs of a significant elevated white blood cell count. Patient received a DuoNeb treatment and on reauscultation had noticeable increased air movement and patient notes significant improvement in his symptoms. He is requesting to go home. Patient's family was at bedside and we discussed that though he indicated no previous history of COPD, his chart does show in the active problems list a diagnosis of COPD. We discussed the use of his inhaler. Family states that about once a year he gets an episode like this. Encouraged use of his at home inhaler and, will treat with a short course of antibiotics as he does have more lung noise after his DuoNeb treatment and, a steroid burst to help with airway tightness. However, they were all given strict return precautions for change or worsening in condition. Patient verbalizes understanding and agreement to treatment plan. Differential Diagnosis Likely acute exacerbation of chronic obstructive airways disease; Unlikely congestive heart failure, community acquired pneumonia or asthma with exacerbation Lab Data 08/18/23 21:53 08/18/23 21:53 Labs/Radiology: Radiology Impressions Chest X-Ray 08/18/23 21:44 IMPRESSION: No acute findings. Laboratory Results WBC 9.33 10^3/uL (3.29-11.43) 08/18/23 21:53 RBC 4.85 10^6/uL (3.85-5.65) 08/18/23 21:53 Hgb 13.70 g/dL (11.27-16.99) 08/18/23 21:53 Hct 42.8 % (37-53) 08/18/23 21:53 MCV 88.2 fl (82-101) 08/18/23 21:53 MCH 28.2 pg (27-33) 08/18/23 21:53 MCHC 32.0 g/dL (30-55) 08/18/23 21:53 RDW 14.4 % (12.1-15.1) 08/18/23 21:53 Plt Count 188 10^3/cmm (157-399) 08/18/23 21:53 MPV 11.3 fL (7.4-10.4) H 08/18/23 21:53 Neut % (Auto) 58.8 % 08/18/23 21:53 Lymph % (Auto) 21.8 % 08/18/23 21:53 [place] % (Auto) 13.6 % 08/18/23 21:53 Eos % (Auto) 4.7 % 08/18/23 21:53 Baso % (Auto) 0.6 % 08/18/23 21:53 Neut # (Auto) 5.48 10^3/uL (1.8-7.7) 08/18/23 21:53 Lymph # (Auto) 2.0 10^3/uL (0.8-4.8) 08/18/23 21:53 [place] # (Auto) 1.3 10^3/uL (0.2-0.9) H 08/18/23 21:53 Eos # (Auto) 0.4 10^3/uL (0.0-0.8) 08/18/23 21:53 Baso # (Auto) 0.1 10^3/uL (0.0-0.1) 08/18/23 21:53 Nucleated RBC % (auto) 0 % 08/18/23 21:53 Nucleated RBCs # 0.0 /100WBC 08/18/23 21:53 Sodium 142 mmol/L (136-145) 08/18/23 21:53 Potassium 4.2 mmol/L (3.5-5.1) 08/18/23 21:53 Chloride 105 mmol/L (98-107) 08/18/23 21:53 Carbon Dioxide 25 mmol/L (22-29) 08/18/23 21:53 Anion Gap 16.2 (5-19) 08/18/23 21:53 BUN 23 mg/dL (8-23) 08/18/23 21:53 Creatinine 1.2 mg/dL (0.7-1.2) 08/18/23 21:53 GFR Calculation Not Reportable 08/18/23 21:53 Glucose 111 mg/dL (65-115) 08/18/23 21:53 Calculated Osmolality 298 mOsm/kg (285-295) H 08/18/23 21:53 Calcium 8.5 mg/dL (8.5-10.5) 08/18/23 21:53 Total Bilirubin 0.5 mg/dL (0.15-1.2) 08/18/23 21:53 AST 14 U/L (0-40) 08/18/23 21:53 ALT 10 U/L (0-41) 08/18/23 21:53 Alkaline Phosphatase 89 U/L (40-130) 08/18/23 21:53 Troponin T Baseline 11 ng/L (0-15) 08/18/23 21:55 Total Protein 6.6 g/dL (6.6-8.7) 08/18/23 21:53 Albumin 3.8 g/dL (3.5-5.2) 08/18/23 21:53 Globulin 2.8 g/dL (1.3-4.6) 08/18/23 21:53 SARS-CoV-2 Ag (Rapid) negative (Negative) 08/18/23 22:49 All radiology interpretation(s) finalized by discharge Discharge Plan Discharge Patient Disposition: Home Clinical Impression: Acute exacerbation of chronic obstructive airways disease Condition: Stable Prescriptions: New doxycycline hyclate 100 mg tablet 100 mg PO BID 7 Days Qty: 14 0RF prednisone 20 mg tablet See Rx Instructions .ROUTE .COMPLEX 10 Days Qty: 19 0RF Rx Instructions: take 3 tablets daily for 3 days. Then take 2 tablets daily for 3 days. Then take one tablet daily until gone. No Action aspirin 81 mg tablet,delayed release (DR/EC) 81 mg PO DAILY Qty: 90 1RF lisinopril 20 mg tablet 20 mg PO BID Qty: 180 1RF tamsulosin 0.4 mg capsule See Rx Instructions .ROUTE .COMPLEX Qty: 90 1RF Dose Instruction: TAKE ONE CAPSULE BY MOUTH EVERY DAY Rx Instructions: TAKE ONE CAPSULE BY MOUTH EVERY DAY amlodipine 10 mg tablet See Rx Instructions .ROUTE .COMPLEX Qty: 90 1RF Dose Instruction: TAKE ONE TABLET BY MOUTH EVERY DAY Rx Instructions: TAKE ONE TABLET BY MOUTH EVERY DAY rosuvastatin 40 mg tablet See Rx Instructions .ROUTE .COMPLEX Qty: 90 1RF Dose Instruction: TAKE ONE TABLET BY MOUTH EVERY DAY Rx Instructions: TAKE ONE TABLET BY MOUTH EVERY DAY sertraline 50 mg tablet See Rx Instructions .ROUTE .COMPLEX Qty: 90 1RF Dose Instruction: TAKE ONE TABLET BY MOUTH EVERY DAY Rx Instructions: TAKE ONE TABLET BY MOUTH EVERY DAY hydralazine 10 mg tablet See Rx Instructions .ROUTE .COMPLEX Qty: 180 1RF Dose Instruction: TAKE ONE TABLET BY MOUTH TWICE A DAY Rx Instructions: TAKE ONE TABLET BY MOUTH TWICE A DAY clopidogrel 75 mg tablet See Rx Instructions .ROUTE .COMPLEX Qty: 90 1RF Dose Instruction: TAKE ONE TABLET BY MOUTH EVERY DAY Rx Instructions: TAKE ONE TABLET BY MOUTH EVERY DAY furosemide 20 mg tablet See Rx Instructions .ROUTE .COMPLEX Qty: 90 1RF Dose Instruction: TAKE ONE TABLET BY MOUTH EVERY DAY Rx Instructions: TAKE ONE TABLET BY MOUTH EVERY DAY pantoprazole 40 mg tablet,delayed release (DR/EC) See Rx Instructions .ROUTE .COMPLEX Qty: 90 1RF Dose Instruction: TAKE ONE TABLET BY MOUTH EVERY DAY Rx Instructions: TAKE ONE TABLET BY MOUTH EVERY DAY carvedilol 25 mg tablet See Rx Instructions .ROUTE .COMPLEX Qty: 180 1RF Dose Instruction: TAKE ONE TABLET BY MOUTH TWICE A DAY Rx Instructions: TAKE ONE TABLET BY MOUTH TWICE A DAY albuterol sulfate 90 mcg/actuation HFA aerosol inhaler 1 inh inhalation Q6H PRN (Reason: shortness of breath or wheezing) Qty: 18 0RF Discharge Orders: Discharge ED (Routine); Ordered 08/18/23 Ordered By: Sasha Marte Referrals: [place],Faustino W, DO [Primary Care Provider] - Discharge Diet: Usual diet Discharge Activity: Increase activity as tolerated Patient Instructions: COPD (Chronic Obstructive Pulmonary Disease) (ED) Activity Restrictions/Additional Instructions: Lab work today is unremarkable. No signs of any cardiac involvement or fluid in the lungs. Patient had noticeable change in his lung sounds after the breathing treatment which leads me to believe we need to treat for an acute COPD flareup. Patient is getting a short course of antibiotics in addition to a steroid burst. We encourage the use of his inhaler at home. Continue to watch for any return of difficulty breathing or acute respiratory distress. If the medication is not helping with the patient's breathing he needs to be seen and reevaluated back here in the emergency department. Coding Level of Care Code ED [employer]
[2023-08-18 22:22] LABS: Troponin(5th) Baseline 11 ng/L (0-15)
[2023-08-18 22:24] LABS: Alanine Aminotransferase 10 U/L (0-41); Albumin Level 3.8 g/dL (3.5-5.2); Alkaline Phosphatase 89 U/L (40-130); Anion Gap 16.2 (5-19); Aspartate Amino Transferase 14 U/L (0-40); Blood Urea Nitrogen 23 mg/dL (8-23); Calcium 8.5 mg/dL (8.5-10.5); Carbon Dioxide 25 mmol/L (22-29); Chloride 105 mmol/L (98-107); Globulin 2.8 g/dL (1.3-4.6); Glucose 111 mg/dL (65-115); Osmolality Calculated 298 mOsm/kg (285-295); Potassium 4.2 mmol/L (3.5-5.1); Sodium 142 mmol/L (136-145); Total Bilirubin 0.5 mg/dL (0.15-1.2); Total Protein 6.6 g/dL (6.6-8.7)
[2023-08-18 23:10] VITALS: PULSE 74; RESP 20; O2SAT 94
[2023-08-18] MEDS: ipratropium-albuterol 3 mL Neb INHALATION (23:10)
[2023-08-18 23:12] LABS: SARS Covid-2 Antigen negative (Negative)
[2023-08-18 23:17] VITALS: PULSE 75; O2SAT 95
[2023-08-18] MEDS: methylPREDNISolone sod succ 125 MG in water for injection-sterile 2 ML 24 MG IVP (23:36)
[2023-08-18] MEDS: doxycycline 100 mg Tablet PO (23:44)
[2023-08-18 23:46] VITALS: BP 135/63; PULSE 74; O2SAT 94
[2023-08-18 23:52] LABS: Troponin 5 2HR 11.71 ng/L (0-15); Troponin 5 2HR Delta 0.71 ABS# (0-10)
[2023-08-18 23:53] VITALS: BP 135/59; O2SAT 97
== END 2023-08-18 23:55 | disposition home or self-care (01) ==
PROVIDERS: Emergency Provider Physician Assistant; PCP Family Medicine
DX: J44.1 Chronic obstructive pulmonary disease with (acute) exacerbation (principal); Z79.02 Long term (current) use of antithrombotics/antiplatelets; Z79.82 Long term (current) use of aspirin; Z11.52 Encounter for screening for COVID-19; Z87.891 Personal history of nicotine dependence; I25.10 Atherosclerotic heart disease of native coronary artery without angina pectoris; E78.5 Hyperlipidemia, unspecified; I10 Essential (primary) hypertension; E11.9 Type 2 diabetes mellitus without complications; Z95.1 Presence of aortocoronary bypass graft
CPT/HCPCS: 36415; 71045; 80053; 84484; 85025; 87426; 94640; 96374; 99285; J2930

== ENCOUNTER 2023-11-30 20:30 | Emergency (ER) | payer MEDICARE, SELFPAY ==
[2023-11-30] VITALS (17 sets, daily range): BP systolic 145–175; BP diastolic 74–91; PULSE 62–74; RESP 16–29; TEMP 36.9; O2SAT 9–100
--- NOTE | 2023-11-30 20:52 | ECG_ITS ---
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 Measurements Intervals [place] Rate: 73 P: 77 LA: 159 QRS: -37 QRSD: 142 T: 57 QT: 432 QTc: 477 Interpretive Statements SINUS RHYTHM WITH OCCASIONAL SUPRAVENTRICULAR PREMATURE COMPLEXES LEFT AXIS DEVIATION [QRS AXIS < -30] RIGHT BUNDLE BRANCH BLOCK [120+ ms QRS DURATION, UPRIGHT V1, 40+ ms S IN I/aVL/V4/V5/V6] Compared to ECG 09/28/2021 21:49:34 Left-axis deviation now present Sinus bradycardia no longer present Left anterior fascicular block no longer present Electronically Signed On 12-01-2023 14:18:35 PEARL DIVER by Linus Hunter M.D. [email or web address]
--- NOTE | 2023-11-30 20:54 | XRR_ITS ---
PROCEDURE INFORMATION: Exam: XR Chest Exam date and time: 11/30/2023 8:56 PM Age: 83 years old Clinical indication: Shortness of breath; Prior surgery; Surgery date: 6+ months; Surgery type: Open heart; Additional info: Dyspnea TECHNIQUE: Imaging protocol: Radiologic exam of the chest. Views: 1 view. COMPARISON: CR XR chest 1V [id number] 08/18/2023 9:59 PM FINDINGS: Lungs: No focal consolidation. Calcified granuloma in the mid right lung. Pleural spaces: No evidence of pneumothorax or pleural effusion. Heart/Mediastinum: Postsurgical changes of the mediastinum compatible with prior CABG. Cardiomediastinal silhouette is otherwise within normal limits. Bones/joints: No evidence of acute osseous abnormality. XR/XR chest 1V portable [id number] IMPRESSION: 1. No acute cardiopulmonary abnormality.
[2023-11-30 21:00] LABS: Basophils # 0.1 10^3/uL (0.0-0.1); Basophils % 0.5 %; Eosinophils # 0.6 10^3/uL (0.0-0.8); Eosinophils % 4.9 %; Hematocrit 45.9 % (37-53); Lymphocytes # 1.3 10^3/uL (0.8-4.8); Mean Corpuscular HGB Conc 31.8 g/dL (30-55); Mean Corpuscular Volume 91.1 fl (82-101); Mean Platelet Volume 12.1 fL (7.4-10.4); Monocytes % 9.2 %; Neutrophils # 8.38 10^3/uL (1.8-7.7); Neutrophils % 73.9 %; Nucleated Red Blood Cells % 0 %; Platelet Count 227 10^3/cmm (157-399); Red Blood Count 5.04 10^6/uL (3.85-5.65); Red Cell Distribution Width 14.4 % (12.1-15.1); White Blood Count 11.34 10^3/uL (3.29-11.43)
[2023-11-30] MEDS: ipratropium-albuterol 3 mL Neb INHALATION (21:10)
[2023-11-30] MEDS: methylPREDNISolone sod succ 125 mg/2 mL INJ IVP (21:10)
--- NOTE | 2023-11-30 21:21 | ED_ITS ---
HPI - SOB/Dyspnea 2 General: Chief Complaint: Shortness of Breath/Dyspnea Stated Complaint: sob Time Seen by Provider: 11/30/23 20:50 History of Present Illness: HPI Narrative: Presents to the ER with complaints of shortness of breath over the last 2 days. Patient does have COPD and does not use his inhaler. Patient does have audible wheezes. Patient did try nebulizer that he got off his nephew but this did not seem to provide any relief. Patient's O2 sat upon arrival to the ER was 84% on room air. Patient was given 3 L of oxygen per nasal cannula and this increased to 98%. Patient does have a history of CHF. Patient denies any fevers chills nausea vomiting diarrhea coughs colds etc. 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 Family History Other CAD (coronary artery disease) Stroke Social History Smoking and tobacco/nicotine status: former use of tobacco/nicotine Alcohol intake: never Substance/Drug Use: never Housing: House Physical Exam 2 Const: COMMON NORMALS: no acute distress, average body habitus, patient oriented x3, no limitations, healthy appearing, alert and well nourished HENMT: COMMON NORMALS: normocephalic, atraumatic, hearing grossly normal bilaterally, external ears normal, EAC's normal, Normal external nose present, moist oral mucous membranes and oropharynx normal HEAD & SCALP: normocephalic and atraumatic NOSE: Normal external nose present EXTERNAL EAR: Yes external ears normal EXTERNAL AUDITORY CANAL: EAC's normal Neck/C-Spine: COMMON NORMALS: no JVD Chest: COMMONS NORMALS: normal inspection of the chest and normal palpation of entire chest wall Resp: COMMON NORMALS: normal respiratory effort and No use of accessory muscles; negative for clear to auscultation bilaterally (Diffuse wheezing) A USCULTATION: not clear to auscultation bilaterally (Diffuse wheezing) Cardio: COMMON NORMALS: no JVD, regular rate, regular rhythm, S1 normal heart sound present, S2 normal heart sound present, No gallops present (Cardio), No clicks present (Cardio), No murmurs present (Cardio) and No rub (Cardio) R ATE: regular rate RHYTHM: regular rhythm HEART SOUNDS: S1 normal heart sound present and S2 normal heart sound present GI: COMMON NORMALS: Normal to inspection, nondistended, normoactive bowel sounds present, Soft to palpation, non-tender, No hepatosplenomegaly present, no masses and no bruits PALPATION: Yes Soft to palpation and Yes No hepatosplenomegaly present Neuro: COMMON NORMALS: patient oriented x3 SENSORIUM/ORIENTATION: Yes alert Course 2 Vital Signs: Vital signs: Vital Signs Temperature 98.5 F 11/30/23 20:55 Pulse Rate 63 11/30/23 23:23 Respiratory Rate 24 H 11/30/23 23:23 Blood Pressure 169/82 11/30/23 23:23 Pulse Oximetry 91 11/30/23 23:23 Oxygen Delivery Me thod Nasal Cannula 11/30/23 23:23 Oxygen Flow Rate 1 11/30/23 23:23 MDM - SOB/Dyspnea Medical Decision Making Patient had lab work was essentially benign. This included CBC CMP chest x-ray BNP influenza and COVID. Patient was given 1 DuoNeb treatment, 1 albuterol nebulizer, 125 mg Solu-Medrol and felt much better. Patient had a home O2 eval which she failed and it showed he needed 2 L at rest and 3 L with exertion. Patient be discharged home with home oxygen. Patient also had a 50 mg prednisone daily for the next 5 days. Differential Diagnosis Likely acute exacerbation of chronic obstructive airways disease; Unlikely congestive heart failure, community acquired pneumonia, asthma with exacerbation or pulmonary embolism Medical Records I reviewed the patient's medical records. Lab Data I reviewed the patient's lab results. 11/30/23 20:51 11/30/23 21:20 Labs/Radiology: Radiology Impressions Chest X-Ray 11/30/23 20:54 IMPRESSION: 1. No acute cardiopulmonary abnormality. Laboratory Results WBC 11.34 10^3/uL (3.29-11.43) 11/30/23 20:51 RBC 5.04 10^6/uL (3.85-5.65) 11/30/23 20:51 Hgb 14.60 g/dL (11.27-16.99) 11/30/23 20:51 Hct 45.9 % (37-53) 11/30/23 20:51 MCV 91.1 fl (82-101) 11/30/23 20:51 MCH 29.0 pg (27-33) 11/30/23 20:51 MCHC 31.8 g/dL (30-55) 11/30/23 20:51 RDW 14.4 % (12.1-15.1) 11/30/23 20:51 Plt Count 227 10^3/cmm (157-399) 11/30/23 20:51 MPV 12.1 fL (7.4-10.4) H 11/30/23 20:51 Neut % (Auto) 73.9 % 11/30/23 20:51 Lymph % (Auto) 11.0 % 11/30/23 20:51 [place] % (Auto) 9.2 % 11/30/23 20:51 Eos % (Auto) 4.9 % 11/30/23 20:51 Baso % (Auto) 0.5 % 11/30/23 20:51 Neut # (Auto) 8.38 10^3/uL (1.8-7.7) H 11/30/23 20:51 Lymph # (Auto) 1.3 10^3/uL (0.8-4.8) 11/30/23 20:51 [place] # (Auto) 1.0 10^3/uL (0.2-0.9) H 11/30/23 20:51 Eos # (Auto) 0.6 10^3/uL (0.0-0.8) 11/30/23 20:51 Baso # (Auto) 0.1 10^3/uL (0.0-0.1) 11/30/23 20:51 Nucleated RBC % (auto) 0 % 11/30/23 20:51 Nucleated RBCs # 0.0 /100WBC 11/30/23 20:51 Sodium 143 mmol/L (136-145) 11/30/23 21:20 Potassium 4.3 mmol/L (3.5-5.1) 11/30/23 21:20 Chloride 106 mmol/L (98-107) 11/30/23 21:20 Carbon Dioxide 30 mmol/L (22-29) H 11/30/23 21:20 Anion Gap 11.3 (5-19) 11/30/23 21:20 BUN 20 mg/dL (8-23) 11/30/23 21:20 Creatinine 1.2 mg/dL (0.7-1.2) 11/30/23 21:20 GFR Calculation Not Reportable 11/30/23 21:20 Glucose 122 mg/dL (65-115) H 11/30/23 21:20 Calculated Osmolality 300 mOsm/kg (285-295) H 11/30/23 21:20 Calcium 8.9 mg/dL (8.5-10.5) 11/30/23 21:20 Magnesium 2.1 mg/dL (1.7-2.3) 11/30/23 21:20 Total Bilirubin 0.5 mg/dL (0.15-1.2) 11/30/23 21:20 AST 16 U/L (0-40) 11/30/23 21:20 ALT 13 U/L (0-41) 11/30/23 21:20 Alkaline Phosphatase 85 U/L (40-130) 11/30/23 21:20 NT-Pro-B Natriuret Pep 1153 pg/mL (0-450) H 11/30/23 21:20 Total Protein 7.0 g/dL (6.6-8.7) 11/30/23 21:20 Albumin 3.5 g/dL (3.5-5.2) 11/30/23 21:20 Globulin 3.5 g/dL (1.3-4.6) 11/30/23 21:20 Influenza Type A Ag negative (Negative) 11/30/23 21:08 Influenza Type B Ag negative (Negative) 11/30/23 21:08 SARS-CoV-2 Ag (Rapid) negative (Negative) 11/30/23 21:08 All radiology interpretation(s) finalized by discharge EKG Data EKG 1: I personally reviewed and interpreted this EKG as follows: EKG Interpretation Date: 11/30/23 EKG interpretation time: 20:52 Prior EKG tracings: not available for review Interpretation: EKG showed ventricular rate 73 bpm, OK interval 159, QRS duration 142, QTc of 458, sinus rhythm with occasional PVC Discharge Plan Discharge Patient Disposition: Home Clinical Impression: Acute exacerbation of chronic obstructive pulmonary disease, Acute hypoxemic respiratory failure, Wheezing Condition: Stable Prescriptions: No Action albuterol sulfate 90 mcg/actuation HFA aerosol inhaler 1 inh inhalation Q6H PRN (Reason: shortness of breath or wheezing) Qty: 18 0RF amlodipine 10 mg tablet 10 mg PO DAILY Qty: 90 1RF aspirin 81 mg tablet,delayed release (DR/EC) 81 mg PO DAILY Qty: 90 1RF carvedilol 25 mg tablet See Rx Instructions .ROUTE .COMPLEX Qty: 180 1RF Dose Instruction: TAKE ONE TABLET BY MOUTH TWICE A DAY Rx Instructions: TAKE ONE TABLET BY MOUTH TWICE A DAY clopidogrel 75 mg tablet See Rx Instructions .ROUTE .COMPLEX Qty: 90 1RF Dose Instruction: TAKE ONE TABLET BY MOUTH EVERY DAY Rx Instructions: TAKE ONE TABLET BY MOUTH EVERY DAY furosemide 20 mg tablet See Rx Instructions .ROUTE .COMPLEX Qty: 90 1RF Dose Instruction: TAKE ONE TABLET BY MOUTH EVERY DAY Rx Instructions: TAKE ONE TABLET BY MOUTH EVERY DAY hydralazine 10 mg tablet See Rx Instructions .ROUTE .COMPLEX Qty: 180 1RF Dose Instruction: TAKE ONE TABLET BY MOUTH TWICE A DAY Rx Instructions: TAKE ONE TABLET BY MOUTH TWICE A DAY lisinopril 20 mg tablet 20 mg PO BID Qty: 180 1RF pantoprazole 40 mg tablet,delayed release (DR/EC) See Rx Instructions .ROUTE .COMPLEX Qty: 90 1RF Dose Instruction: TAKE ONE TABLET BY MOUTH EVERY DAY Rx Instructions: TAKE ONE TABLET BY MOUTH EVERY DAY rosuvastatin 40 mg tablet 40 mg PO DAILY Qty: 90 1RF sertraline 50 mg tablet See Rx Instructions .ROUTE .COMPLEX Qty: 90 1RF Dose Instruction: TAKE ONE TABLET BY MOUTH EVERY DAY Rx Instructions: TAKE ONE TABLET BY MOUTH EVERY DAY tamsulosin 0.4 mg capsule 0.4 mg PO DAILY Qty: 90 1RF Discharge Orders: Discharge ED (Routine); Ordered 11/30/23 Ordered By: Alan Resendez Other Ambulatory Orders: DME: Oxygen (Order) Location: None Selected Ordered By: Alan Resendez Referrals: Faustino Morales DO [Primary Care Provider] - 1 week Patient Instructions: COPD (Chronic Obstructive Pulmonary Disease) (DC) Activity Restrictions/Additional Instructions: Please use your oxygen as directed. Please follow-up with your family practice physician within next 7 days for further evaluation and treatment as needed. Coding Level of Care Code ED Shellac Polisher for Maxim Kim
[2023-11-30 21:28] LABS: Influenza A by IFA negative (Negative); Influenza B by IFA negative (Negative)
[2023-11-30 21:29] LABS: SARS Covid-2 Antigen negative (Negative)
[2023-11-30 21:57] LABS: Alanine Aminotransferase 13 U/L (0-41); Albumin Level 3.5 g/dL (3.5-5.2); Alkaline Phosphatase 85 U/L (40-130); Anion Gap 11.3 (5-19); Aspartate Amino Transferase 16 U/L (0-40); Blood Urea Nitrogen 20 mg/dL (8-23); Calcium 8.9 mg/dL (8.5-10.5); Carbon Dioxide 30 mmol/L (22-29); Chloride 106 mmol/L (98-107); Globulin 3.5 g/dL (1.3-4.6); Glucose 122 mg/dL (65-115); Magnesium 2.1 mg/dL (1.7-2.3); Osmolality Calculated 300 mOsm/kg (285-295); Potassium 4.3 mmol/L (3.5-5.1); Sodium 143 mmol/L (136-145); Total Bilirubin 0.5 mg/dL (0.15-1.2)
[2023-11-30 22:02] LABS: NT Pro B Type Natriuretic Pept 1153 pg/mL (0-450)
[2023-11-30] MEDS: albuterol 2.5 mg/3 mL Neb INHALATION (22:31)
[2023-12-01 00:04] VITALS: BP 168/85; PULSE 72; RESP 19; O2SAT 95
[2023-12-01 00:18] VITALS: BP 152/106; PULSE 71; RESP 23; O2SAT 95
[2023-12-01 01:05] VITALS: BP 165/94; PULSE 78; RESP 23; O2SAT 97
== END 2023-12-01 01:06 | disposition home or self-care (01) ==
PROVIDERS: Emergency Provider Emergency Medicine; PCP Family Medicine
DX: J44.1 Chronic obstructive pulmonary disease with (acute) exacerbation (principal); J96.01 Acute respiratory failure with hypoxia; Z87.891 Personal history of nicotine dependence
CPT/HCPCS: 36415; 71045; 80053; 83735; 83880; 85025; 87426; 87804; 93005; 94640; 96374; 99285; J2930; J7613

== ENCOUNTER 2023-12-05 15:52 | Emergency (ER) | payer MEDICARE, SELFPAY ==
[2023-12-05 15:55] VITALS: BP 151/74; PULSE 70; RESP 16; TEMP 36.7; O2SAT 95; BMI 26.6
--- NOTE | 2023-12-05 16:05 | CTR_ITS ---
PROCEDURE INFORMATION: Exam: CT Head Without Contrast Exam date and time: 12/05/2023 4:20 PM Age: 83 years old Clinical indication: Injury or trauma; Fall; Blunt trauma (contusions or hematomas); Additional info: Trauma/fall TECHNIQUE: Imaging protocol: Computed tomography of the head without contrast. Sagittal and coronal reformatted images were created and reviewed. Radiation optimization: All CT scans at this facility use at least one of these dose optimization techniques: automated exposure control; mA and/or kV adjustment per patient size (includes targeted exams where dose is matched to clinical indication); or iterative reconstruction. COMPARISON: CT head wo con* [id number] 09/28/2021 8:12 PM RADIATION DOSE METRICS: Total DLP (mGy-cm): 949.4 FINDINGS: Brain: No acute intracranial hemorrhage. No acute infarct. No intra-axial or extra-axial masses. Julian-white matter differentiation is preserved. No cerebral edema. No extra-axial fluid collections. No midline shift. No evidence for Chiari 1 malformation. Stable mild atrophy of the brain parenchyma. Stable moderately decreased attenuation in the deep white matter, consistent with moderate chronic microangiopathic change. Cerebral ventricles: No hydrocephalus. Paranasal sinuses: Partially visualized mucous retention cysts in the visualized right maxillary sinus. Other visualized paranasal sinuses are clear. Mastoid air cells: Mastoid air cells are clear bilaterally. Orbital cavities: Globes and lenses, extraocular muscles, and optic nerves are intact bilaterally. No acute intraorbital abnormality. Bones/joints: No acute fracture. Soft tissues: No acute abnormality of the extracranial soft tissues. Vasculature: Atherosclerotic changes in the visualized arteries. CT/CT head wo con* [id number] IMPRESSION: 1. No acute abnormality of the brain. 2. Stable mild atrophy of the brain parenchyma. 3. Stable moderate chronic white matter microangiopathic change. 4. Incidental/nonacute findings are listed in the report.
--- NOTE | 2023-12-05 16:05 | CTR_ITS ---
PROCEDURE INFORMATION: Exam: CT Cervical Spine Without Contrast Exam date and time: 12/05/2023 4:20 PM Age: 83 years old Clinical indication: Injury or trauma; Fall; Blunt trauma; Additional info: Trauma/fall TECHNIQUE: Imaging protocol: Computed tomography of the cervical spine without contrast. Sagittal and coronal reformatted images were created and reviewed. Radiation optimization: All CT scans at this facility use at least one of these dose optimization techniques: automated exposure control; mA and/or kV adjustment per patient size (includes targeted exams where dose is matched to clinical indication); or iterative reconstruction. COMPARISON: No relevant prior studies available. RADIATION DOSE METRICS: Total DLP (mGy-cm): 655.9 FINDINGS: Bones/joints: Vertebral body height is maintained. Bones are diffusely osteopenic. Multilevel degenerative changes of varying severity in the visualized spine.Mild spinal canal stenosis at C3-C4 through C6-C7. Multilevel foraminal stenosis of varying severity in the visualized spine. Straightening of the cervical spine. This may be due to positioning versus muscle spasm. Grade 1 retrolisthesis of C6 on C7 and grade 1 anterolisthesis of C7 on T1, likely due to facet degenerative change. 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 No acute fracture. Lungs: Visualized lungs are clear. Thyroid: 7.1 x 9.2 mm left thyroid lobe nodule (series 5, image 62). Vasculature: Atherosclerotic changes in the visualized arteries. Soft tissues: No soft tissue swelling. No radiopaque foreign body. CT/CT cervical spin wo con* [id number] IMPRESSION: 1. No acute fracture of the cervical spine. 2. Multilevel degenerative changes of varying severity in the visualized spine.Mild spinal canal stenosis at C3-C4 through C6-C7. Multilevel foraminal stenosis of varying severity in the visualized spine. 3. Grade 1 retrolisthesis of C6 on C7 and grade 1 anterolisthesis of C7 on T1, likely due to facet degenerative change. 4. 7.1 x 9.2 mm left thyroid lobe nodule. No follow-up is recommended. 5. Incidental/nonacute findings are listed in the report. COMMENTS: Consistent with the [employer]'s Incidental Findings Committee white paper (J [employer] Sheila Radiol 2015): In patients aged 35 years and older with an incidental thyroid nodule equal to or greater than 1.[address], MRI or extrathyroidal US, further evaluation with dedicated thyroid US is recommended for patients with normal life expectancy and without comorbidities. For smaller nodules without suspicious features, no further evaluation or follow up is recommended.
--- NOTE | 2023-12-05 16:17 | XRR_ITS ---
PROCEDURE INFORMATION: Exam: XR Right Humerus Exam date and time: 12/05/2023 4:25 PM Age: 83 years old Clinical indication: Injury or trauma; Fall; Blunt trauma (contusions or hematomas); Arm, upper; Right; Additional info: Trauma/fall TECHNIQUE: Imaging protocol: Radiologic exam of the right humerus. Views: 2 or more views. COMPARISON: CT cervical spin wo con* [id number] 12/05/2023 4:20 PM FINDINGS: Bones/joints: Moderately displaced and angulated fracture through the midshaft of the humerus extending cranially. Degenerative changes of the shoulders. Soft tissues: Normal. XR/[place] [id number] IMPRESSION: Fracture of the mid to proximal humerus.
--- NOTE | 2023-12-05 16:18 | ED_ITS ---
HPI - Fall General: Chief Complaint: Fall Stated Complaint: fall, right arm injury, hit head Time Seen by Provider: 12/05/23 16:04 History of Present Illness: 83-year-old male presents to the emergen cy department via POV after an accidental fall at his home. The patient does take Plavix and aspirin daily. He states that he was walking from his out building towards his house when he slipped on a pile of snow falling into the corner of his house and hitting his right upper arm and then falling to the ground and hitting the right upper side of his head. He denies loss of consciousness, dizziness or lightheaded feeling. He states he is not having any chest pain but does have history of COPD requiring supplemental oxygen. He states the pain in his right upper arm is a 9 out of 10 and worse with any movement. He denies numbness or tingling to the extremity. He denies headache or neck pain. He denies difficulty with vision. He states he was able to ambulate with assistance after his fall. 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 Vital signs reviewed as documented. GCS 15, alert and oriented x 4-person, place, time and situation. HENMT: Normocephalic, 3 cm x 4 cm superficial abrasion to the right parietal region.. External ears normal appearance without drainage. There is no hemotympanum. Nose without drainage, normal appearance. Mucus membranes moist. Neck is supple, No jugular venous distension, trachea is midline, no appreciable carotid bruits. No lymphadenopathy. No meningeal signs. Flexion, extension and lateral rotation is without pain. Cervical spine is nontender to palpation, appears to have normal alignment, there is no palpable c repitus or palpable step-offs that I can appreciate at present. Eyes: Pupils are equal, round, reactive to light and accommodation. No scleral icterus. Extra-ocular movement are intact. Thorax: symmetrical and with equal rise and fall with respirations. Nontender to palpation, no crepitus or obvious deformity. Resp: Currently on supplemental oxygen secondary to his COPD. Expiratory wheezes noted bilaterally.. No rales, crackles or ronchi at present. Cardio: Regular rate and rhythm. Positive S1, S2. No appreciable murmurs, rubs or gallops. GI: Abdominal exam reveals normal bowel sounds to all quadrants. No organomegaly. No obvious palpable masses noted. No hepatomegally appreciated. Soft, non-tender to palpation. Extremity: Right upper extremity with ecchymosis to the midshaft area of the right humerus. Extremely tender to light touch or palpation to the right upper extremity. Attempts at movement causes increased pain. Remaining extremities are non-edematous and both femoral and pedal pulses are 2+ and equal bilaterally. He moves the remainder of the extremities extremities well, sensation in all extremities. Neuro: Alert and oriented x4, person, place, time and situation. Cranial nerves II through XII are grossly intact, there is no focal neurological deficits that I can appreciate at present. Motor strength in the upper and lower extremities are equal and bilateral 5/5. Psych: Cooperative, calm, normal thought process, appropriate judgment. Skin: No lesions, rashes. Abrasion as previously noted to the right parietal scalp area. Back: Symmetrical, no obvious deformity, No CVA tenderness Course ED course: #1 Procedure note: splint application: I reviewed the radiographic examination and determined the need for fracture stabilization via splint. A right posterior long-arm splint was utilized. The splint was ordered and placed by the nursing staff, under the direct supervision of myself (ER Physician. The patient's neurovascular status was evaluated and was intact before and after the application of the splint. Capillary refill was less than 3 seconds before and after the application. The patient was splinted and the most appropriate anatomical and functional position at that time. Anticipatory guidance, return precautions and red flag precautions were provided to the patient and support person. The patient/support person was advised to contact the patient's primary care provider or Orthopedic provider to make a follow-up appointment for additional evaluation and treatment within the next 3-5 days. #2 Procedure note: Right shoulder sling I reviewed the radiographic examination and determined the need for stabilization via right upper extremity sling. A soft shoulder sling was utilized after application of the right posterior long-arm splint. The sling was ordered and placed by the nursing staff, under the direct supervision of myself (ER Physician. The patient's neurovascular status was evaluated and was intact before and after the application of the sling/splint. Capillary refill was less than 3 seconds before and after the application. The patient was provided a sling and the most appropriate anatomical and functional position at that time. Anticipatory guidance, return precautions and red flag precautions were provided to the patient and support person. The patient/support person was advised to contact the patient's primary care provider or Orthopedic provider to make a follow-up appointment for additional evaluation and treatment within the next 3-5 days. Reevaluation(s): Reevaluation #1: I reviewed the radiographic examinations and discussed the findings with the patient. The patient was provided p.o. pain medication and I advised him of the importance of follow-up as well as providing him discharge instructions and E- prescriptions Time: 17:03 Vital Signs: Vital signs: Vital Signs Temperature 98.0 F 12/05/23 15:55 Pulse Rate 65 12/05/23 17:25 Respiratory Rate 16 12/05/23 15:55 Blood Pressure 154/91 12/05/23 16:49 Pulse Oximetry 98 12/05/23 17:25 Oxygen Delivery Me thod Nasal Cannula 12/05/23 16:49 Oxygen Flow Rate 2 12/05/23 16:49 MDM - Fall Medical Decision Making 83-year-old male presents secondary to a fall currently on anticoagulation to include aspirin and Plavix. No loss of consciousness, superficial abrasion to the right parietal region-we will provide wound care to include cleansing and antibiotic ointment to the scalp. Patient also complains of right upper extremity pain, with swelling and ecchymosis. We will obtain a plain film radiographs of the right humerus for evaluation for fracture and need for splinting to stabilize. Will also obtain a CT scan of the patient's head and cervical spine for evaluation given his anticoagulation and recent fall. I will provide p.o. pain medication given the patient's complaints of right upper extremity pain and reevaluate. #1 Procedure note: splint application: I reviewed the radiographic examination and determined the need for fracture stabilization via splint. A right posterior long-arm splint was utilized. The splint was ordered and placed by the nursing staff, under the direct supervision of myself (ER Physician. The patient's neurovascular status was evaluated and was intact before and after the application of the splint. Capillary refill was less than 3 seconds before and after the application. The patient was splinted and the most appropriate anatomical and functional position at that time. Anticipatory guidance, return precautions and red flag precautions were provided to the patient and support person. The patient/support person was advised to contact the patient's primary care provider or Orthopedic provider to make a follow-up appointment for additional evaluation and treatment within the next 3-5 days. #2 Procedure note: Right shoulder sling I reviewed the radiographic examination and determined the need for stabilization via right upper extremity sling. A soft shoulder sling was utilized after application of the right posterior long-arm splint. The sling was ordered and placed by the nursing staff, under the direct supervision of myself (ER Physician. The patient's neurovascular status was evaluated and was intact before and after the application of the sling/splint. Capillary refill was less than 3 seconds before and after the application. The patient was provided a sling and the most appropriate anatomical and functional position at that time. Anticipatory guidance, return precautions and red flag precautions were provided to the patient and support person. The patient/support person was advised to contact the patient's primary care provider or Orthopedic provider to make a follow-up appointment for additional evaluation and treatment within the next 3-5 days. Medical Records I reviewed the patient's medical records. Lab Data Radiology Impressions Cervical Spine CT 12/05/23 16:05 IMPRESSION: 1. No acute fracture of the cervical spine. 2. Multilevel degenerative changes of varying severity in the visualized spine.Mild spinal canal stenosis at C3-C4 through C6-C7. Multilevel foraminal stenosis of varying severity in the visualized spine. 3. Grade 1 retrolisthesis of C6 on C7 and grade 1 anterolisthesis of C7 on T1, likely due to facet degenerative change. 4. 7.1 x 9.2 mm left thyroid lobe nodule. No follow-up is recommended. 5. Incidental/nonacute findings are listed in the report. COMMENTS: Consistent with the [employer] [place] [employer]'s Incidental Findings Committee white paper (J Am Sheila Radiol 2015): In patients aged 35 years and older with an incidental thyroid nodule equal to or greater than 1.[address], MRI or extrathyroidal US, further evaluation with dedicated thyroid US is recommended for patients with normal life expectancy and without comorbidities. For smaller nodules without suspicious features, no further evaluation or follow up is recommended. Head CT 12/05/23 16:05 IMPRESSION: 1. No acute abnormality of the brain. 2. Stable mild atrophy of the brain parenchyma. 3. Stable moderate chronic white matter microangiopathic change. 4. Incidental/nonacute findings are listed in the report. Humerus X-Ray 12/05/23 16:17 IMPRESSION: Fracture of the mid to proximal humerus. All radiology interpretation(s) finalized by discharge Discharge Plan Discharge Patient Disposition: Home Clinical Impression: Fracture, humerus closed, shaft, Contusion of parietal region of scalp, Accidental fall Condition: Stable Prescriptions: New cyclobenzaprine 10 mg tablet 10 mg PO Q8H Qty: 14 0RF hydrocodone-acetaminophen 5-325 mg tablet 1 tab PO Q8H PRN (Reason: pain) Qty: 14 0RF No Action albuterol sulfate 90 mcg/actuation HFA aerosol inhaler 1 inh inhalation Q6H PRN (Reason: shortness of breath or wheezing) Qty: 18 0RF amlodipine 10 mg tablet 10 mg PO DAILY Qty: 90 1RF aspirin 81 mg tablet,delayed release (DR/EC) 81 mg PO DAILY Qty: 90 1RF carvedilol 25 mg tablet See Rx Instructions .ROUTE .COMPLEX Qty: 180 1RF Dose Instruction: TAKE ONE TABLET BY MOUTH TWICE A DAY Rx Instructions: TAKE ONE TABLET BY MOUTH TWICE A DAY clopidogrel 75 mg tablet See Rx Instructions .ROUTE .COMPLEX Qty: 90 1RF Dose Instruction: TAKE ONE TABLET BY MOUTH EVERY DAY Rx Instructions: TAKE ONE TABLET BY MOUTH EVERY DAY furosemide 20 mg tablet See Rx Instructions .ROUTE .COMPLEX Qty: 90 1RF Dose Instruction: TAKE ONE TABLET BY MOUTH EVERY DAY Rx Instructions: TAKE ONE TABLET BY MOUTH EVERY DAY hydralazine 10 mg tablet See Rx Instructions .ROUTE .COMPLEX Qty: 180 1RF Dose Instruction: TAKE ONE TABLET BY MOUTH TWICE A DAY Rx Instructions: TAKE ONE TABLET BY MOUTH TWICE A DAY lisinopril 20 mg tablet 20 mg PO BID Qty: 180 1RF pantoprazole 40 mg tablet,delayed release (DR/EC) See Rx Instructions .ROUTE .COMPLEX Qty: 90 1RF Dose Instruction: TAKE ONE TABLET BY MOUTH EVERY DAY Rx Instructions: TAKE ONE TABLET BY MOUTH EVERY DAY rosuvastatin 40 mg tablet 40 mg PO DAILY Qty: 90 1RF sertraline 50 mg tablet See Rx Instructions .ROUTE .COMPLEX Qty: 90 1RF Dose Instruction: TAKE ONE TABLET BY MOUTH EVERY DAY Rx Instructions: TAKE ONE TABLET BY MOUTH EVERY DAY tamsulosin 0.4 mg capsule 0.4 mg PO DAILY Qty: 90 1RF Discharge Orders: Discharge ED (Routine); Ordered 12/05/23 Ordered By: Naga Holder Referrals: Faustino Morales DO [Primary Care Provider] - Faisal Mckeon DO [Physician] - Discharge Diet: Low Salt Discharge Activity: Limit activity as instructed Patient Instructions: Opioid Safety, Pain Management, RICE Therapy Activity Restrictions/Additional Instructions: Activity Restrictions/Additional Instructions: Thank you for choosing [facility] for your healthcare needs today. Please realize that you were seen in the Emergency Department and that we are providing you with an emergency medical screening exam and this may not be a complete and all inclusive of all the testing and or medical work-up that you may need to determine your ailment or severity of your illness. It is very important that you follow-up as instructed with your Primary care provider or Specialist for additional evaluation and to discuss your medical treatment plan. You may return to the Emergency Department should you have con cerns or if your condition changes or worsens in any way. Coding Level of Care Code ED [employer]
[2023-12-05] MEDS: HYDROcodone-acetaminophen 10-325 mg Tablet 1 TAB PO (16:45)
[2023-12-05 16:49] VITALS: BP 154/91; PULSE 71; O2SAT 98
[2023-12-05 17:25] VITALS: PULSE 65; O2SAT 98
== END 2023-12-05 17:26 | disposition home or self-care (01) ==
PROVIDERS: Emergency Provider Internal Medicine; PCP Family Medicine
DX: S00.03XA Contusion of scalp, initial encounter (principal); S42.301A Unspecified fracture of shaft of humerus, right arm, initial encounter for closed fracture; W00.0XXA Fall on same level due to ice and snow, initial encounter; E78.5 Hyperlipidemia, unspecified; J44.9 Chronic obstructive pulmonary disease, unspecified; E11.9 Type 2 diabetes mellitus without complications; I10 Essential (primary) hypertension; I25.10 Atherosclerotic heart disease of native coronary artery without angina pectoris; Z95.1 Presence of aortocoronary bypass graft; Z87.891 Personal history of nicotine dependence; Z79.02 Long term (current) use of antithrombotics/antiplatelets; Z79.82 Long term (current) use of aspirin
CPT/HCPCS: 29105; 70450; 72125; 73060; 99284; A4590

== ENCOUNTER → 2023-12-08 09:39 | Outpatient (BNVA) | payer MEDICARE, SELFPAY | PROVIDERS: PCP Family Medicine; Referring Provider Internal Medicine; Visit Provider Nurse Practitioner | DX: S42.351A Displaced comminuted fracture of shaft of humerus, right arm, initial encounter for closed fracture (principal); W19.XXXA Unspecified fall, initial encounter | CPT/HCPCS: 24500; 24530; 99204 ==

== ENCOUNTER → 2023-12-23 14:23 | Outpatient (BNVA) | payer MEDICARE, SELFPAY | PROVIDERS: PCP Family Medicine; Visit Provider Nurse Practitioner | DX: S42.351A Displaced comminuted fracture of shaft of humerus, right arm, initial encounter for closed fracture (principal); R06.02 Shortness of breath; W19.XXXA Unspecified fall, initial encounter; Z46.89 Encounter for fitting and adjustment of other specified devices; S42.351D Displaced comminuted fracture of shaft of humerus, right arm, subsequent encounter for fracture with routine healing; X58.XXXD Exposure to other specified factors, subsequent encounter | CPT/HCPCS: 71045; 71046; 73060; 97760; 99024; L3980 ==

== ENCOUNTER 2023-12-23 16:07 | Outpatient (CLI) | payer MEDICARE, SELFPAY | END 2023-12-23 16:08 | disposition home or self-care (01) | LOC: SPT 16:08 | PROVIDERS: PCP Family Medicine; Visit Provider Nurse Practitioner | DX: Z46.89 Encounter for fitting and adjustment of other specified devices (principal); S42.351D Displaced comminuted fracture of shaft of humerus, right arm, subsequent encounter for fracture with routine healing; X58.XXXD Exposure to other specified factors, subsequent encounter | CPT/HCPCS: 97760; 99024; L3980 ==

== ENCOUNTER → 2024-01-20 08:32 | Outpatient (BNVA) | payer MEDICARE, SELFPAY | PROVIDERS: PCP Family Medicine; Visit Provider Nurse Practitioner | DX: S42.351D Displaced comminuted fracture of shaft of humerus, right arm, subsequent encounter for fracture with routine healing; W19.XXXD Unspecified fall, subsequent encounter | CPT/HCPCS: 73060; 99024 ==

== ENCOUNTER 2024-01-26 09:11 | Outpatient (RCR) | payer MEDICARE, SELFPAY | END 2024-02-13 23:59 | disposition home or self-care (01) | LOC: SPT 09:11 | PROVIDERS: PCP Family Medicine; Visit Provider Family Medicine | DX: I63.9 Cerebral infarction, unspecified (principal); S42.321D Displaced transverse fracture of shaft of humerus, right arm, subsequent encounter for fracture with routine healing; X58.XXXD Exposure to other specified factors, subsequent encounter | CPT/HCPCS: 97110; 97116; 97162; 97167; 97530 ==

== ENCOUNTER 2024-01-26 09:43 | Outpatient (RCR) | payer MEDICARE, SELFPAY | END 2024-02-13 23:59 | disposition home or self-care (01) | LOC: SOT 09:43 | PROVIDERS: PCP Family Medicine; Visit Provider Family Medicine | DX: S42.301D Unspecified fracture of shaft of humerus, right arm, subsequent encounter for fracture with routine healing (principal); X58.XXXD Exposure to other specified factors, subsequent encounter; I63.9 Cerebral infarction, unspecified; S42.321D Displaced transverse fracture of shaft of humerus, right arm, subsequent encounter for fracture with routine healing | CPT/HCPCS: 97167 ==

== ENCOUNTER 2024-01-26 09:55 | Outpatient (RCR) | payer MEDICARE, SELFPAY | END 2024-02-13 23:59 | disposition home or self-care (01) | LOC: SST 09:55 | PROVIDERS: PCP Family Medicine; Visit Provider Family Medicine | DX: T17.908D Unspecified foreign body in respiratory tract, part unspecified causing other injury, subsequent encounter (principal); X58.XXXD Exposure to other specified factors, subsequent encounter | CPT/HCPCS: 92610 ==

== ENCOUNTER 2024-02-14 06:00 | Outpatient (RCR) | payer MEDICARE, SELFPAY | END 2024-03-14 23:59 | disposition home or self-care (01) | LOC: SPT 06:00 | PROVIDERS: PCP Family Medicine; Visit Provider Family Medicine | DX: I63.9 Cerebral infarction, unspecified (principal); S42.321D Displaced transverse fracture of shaft of humerus, right arm, subsequent encounter for fracture with routine healing; X58.XXXD Exposure to other specified factors, subsequent encounter | CPT/HCPCS: 97110; 97116 ==

== ENCOUNTER → 2024-02-28 12:57 | Outpatient (BNVA) | payer MEDICARE, SELFPAY | PROVIDERS: PCP Family Medicine; Visit Provider Specialist | DX: S42.321D Displaced transverse fracture of shaft of humerus, right arm, subsequent encounter for fracture with routine healing (principal); X58.XXXD Exposure to other specified factors, subsequent encounter | CPT/HCPCS: 73060; 99024 ==

== ENCOUNTER 2024-04-05 12:22 | Outpatient (RCR) | payer MEDICARE, SELFPAY | END 2024-04-14 23:59 | disposition home or self-care (01) | LOC: SPT 12:22 | PROVIDERS: PCP Family Medicine; Visit Provider Family Medicine | DX: I63.9 Cerebral infarction, unspecified (principal); S42.321D Displaced transverse fracture of shaft of humerus, right arm, subsequent encounter for fracture with routine healing; X58.XXXD Exposure to other specified factors, subsequent encounter | CPT/HCPCS: 97110; 97116 ==

== ENCOUNTER → 2024-04-12 14:31 | Outpatient (BNVA) | payer MEDICARE, SELFPAY | PROVIDERS: PCP Family Medicine; Visit Provider Specialist | DX: S42.321D Displaced transverse fracture of shaft of humerus, right arm, subsequent encounter for fracture with routine healing (principal); X58.XXXD Exposure to other specified factors, subsequent encounter | CPT/HCPCS: 99213 ==

== ENCOUNTER → 2024-05-22 12:12 | Outpatient (BNVA) | payer MEDICARE, SELFPAY | PROVIDERS: PCP Family Medicine; Visit Provider Family Medicine | DX: E11.9 Type 2 diabetes mellitus without complications (principal); E78.2 Mixed hyperlipidemia; I10 Essential (primary) hypertension; N40.1 Benign prostatic hyperplasia with lower urinary tract symptoms; R35.1 Nocturia; I63.9 Cerebral infarction, unspecified; R47.81 Slurred speech; E83.42 Hypomagnesemia | CPT/HCPCS: 80053; 80061; 82306; 82607; 83036; 83735; 83880; 84439; 84443; 85025; 86140; G0103 ==

== ENCOUNTER 2024-07-19 16:39 | Outpatient (CLI) | payer MEDICARE, SELFPAY ==
[2024-07-19 16:55] LABS: Charge for UA Resulting for Rev
[2024-07-19 17:09] LABS: Bilirubin Urine Negative (Negative); Blood Urine Negative (Negative); Glucose Urine UA Negative (Normal); Ketones Urine Negative (Negative); Leukocyte Esterase Urine 3+ (Negative); Nitrate Urine Positive (Negative); Protein Urine 2+ (Negative); Specific Gravity, Urine 1.018 (1.005-1.030); Urine Appearance Cloudy (CLEAR); Urine Color Yellow (Yellow); pH Urine >=9.0 (5-7)
[2024-07-19 18:02] LABS: RBC Urine 0-4 /hpf (0-2); Squamous Epithelial Cell Urine 0-4 /hpf (0-5); UA Manual Slide Review YES; UA Slide Review UA Slide Review Perf; WBC Urine 15-25 /hpf (0-5)
[2024-07-19 18:03] LABS: Add Urine Culture? No; Bacteria Urine 4+ /hpf; Mucus Urine TRACE /hpf
== END 2024-07-19 16:40 | disposition home or self-care (01) ==
PROVIDERS: PCP Family Medicine; Visit Provider Family Medicine
DX: I63.9 Cerebral infarction, unspecified (principal)
CPT/HCPCS: 81003; 81015; 87077; 87086; 87186

== ENCOUNTER 2024-07-21 19:08 | Inpatient (IN) | payer MEDICARE, SELFPAY ==
[2024-07-21] VITALS (10 sets, daily range): BP systolic 111–129; BP diastolic 67–86; PULSE 93–108; RESP 16–20; TEMP 37.2; O2SAT 90–96
--- NOTE | 2024-07-21 19:11 | ECG_ITS ---
[facility] Test Date: 2024-07-21 Pat Name: Robby Haskins Department: Room: Gender: Male Physician Relations Specialist: : [id number] Requested By: Juana Velasquez Order Number: [id number] Magdalena MD: DANIELA DESAI Measurements Intervals [place] Rate: 101 P: 0 CO: 0 QRS: -79 QRSD: 125 T: 47 QT: 353 QTc: 459 Interpretive Statements ATRIAL FIBRILLATION WITH RAPID VENTRICULAR RESPONSE LEFT AXIS DEVIATION [QRS AXIS < -30] RIGHT BUNDLE BRANCH BLOCK [120+ ms QRS DURATION, UPRIGHT V1, 40+ ms S IN I/aVL/V4/V5/V6] Compared to ECG 11/30/2023 20:52:01 Sinus rhythm no longer present Electronically Signed On 07-23-2024 18:55:06 CDT by DANIELA DESAI [id number]
--- NOTE | 2024-07-21 19:14 | XRR_ITS ---
PROCEDURE INFORMATION: Exam: XR Chest Exam date and time: 07/21/2024 7:33 PM Age: 84 years old Clinical indication: Shortness of breath; Additional info: Weakness TECHNIQUE: Imaging protocol: Radiologic exam of the chest. Views: 1 view. COMPARISON: CR XR chest 1V [id number] 12/23/2023 4:13 PM FINDINGS: Lungs: Reticular opacities throughout both lungs are unchanged from prior exam suggesting scarring or interstitial lung disease. Calcified granuloma in the right lower lung. No acute superimposed airspace disease. Pleural spaces: No pleural effusion. No pneumothorax. Heart/Mediastinum: Cardiac silhouette is normal in size for technique. Vasculature: Mediastinal surgical clips and vascular markers suggest prior myocardial revascularization. Bones/joints: Subjective bony demineralization. No visible displaced fracture. XR/XR chest 1V portable [id number] IMPRESSION: Stable appearance of pulmonary reticular opacities. No acute superimposed airspace disease. No features of heart failure.
[2024-07-21 19:50] LABS: Basophils % 0.6 %; Eosinophils # 0.1 10^3/uL (0.0-0.8); Eosinophils % 1.5 %; Hematocrit 38.9 % (37-53); Lymphocytes # 0.9 10^3/uL (0.8-4.8); Lymphocytes % 13.6 %; Mean Corpuscular HGB Conc 29.6 g/dL (30-55); Mean Corpuscular Hemoglobin 23.8 pg (27-33); Mean Corpuscular Volume 80.5 fl (82-101); Mean Platelet Volume 10.4 fL (7.4-10.4); Monocytes # 0.5 10^3/uL (0.2-0.9); Monocytes % 7.7 %; Neutrophils # 5.17 10^3/uL (1.8-7.7); Neutrophils % 76.2 %; Nucleated Red Blood Cells % 0 %; Platelet Count 238 10^3/cmm (157-399); Red Blood Count 4.83 10^6/uL (3.85-5.65); Red Cell Distribution Width 18.1 % (12.1-15.1); White Blood Count 6.78 10^3/uL (3.29-11.43)
[2024-07-21 20:15] LABS: Troponin(5th) Baseline 19 ng/L (0-15)
[2024-07-21 20:19] LABS: Protein Urine 2+ (Negative); Specific Gravity, Urine 1.016 (1.005-1.030); Urine Appearance Clear (CLEAR); Urine Color Yellow (Yellow); pH Urine 5.5 (5-7)
[2024-07-21 20:20] LABS: Add Urine Culture? Yes; Bilirubin Urine Neg (Negative); Blood Urine 1+ (Negative); Glucose Urine UA Norm (Normal); Hyaline Casts Urine 13.63 /lpf; Ketones Urine Trace (Negative); Leukocyte Esterase Urine 2+ (Negative); Nitrate Urine Negative (Negative); RBC Urine 0-4 /hpf (0-2); Renal Epithelial Cells Urine N /hpf; WBC Urine 51-100 /hpf (0-5)
[2024-07-21 20:24] LABS: Alanine Aminotransferase 12 U/L (0-41); Albumin Level 3.5 g/dL (3.5-5.2); Alkaline Phosphatase 166 U/L (40-130); Anion Gap 16.4 (5-19); Aspartate Amino Transferase 18 U/L (0-40); Blood Urea Nitrogen 17 mg/dL (8-23); C Reactive Protein 30.7 mg/L (0.0-4.9); Calcium 8.1 mg/dL (8.5-10.5); Carbon Dioxide 25 mmol/L (22-29); Chloride 105 mmol/L (98-107); Globulin 3.4 g/dL (1.3-4.6); Glucose 122 mg/dL (65-115); NT Pro B Type Natriuretic Pept 5608 pg/mL (0-450); Osmolality Calculated 297 mOsm/kg (285-295); Potassium 4.4 mmol/L (3.5-5.1); Sodium 142 mmol/L (136-145); Total Bilirubin 0.8 mg/dL (0.15-1.2); Total Protein 6.9 g/dL (6.6-8.7)
[2024-07-21] MEDS: albuterol 2.5 mg/3 mL Neb INHALATION (20:27)
[2024-07-21] MEDS: ipratropium-albuterol 3 mL Neb INHALATION (20:27)
[2024-07-21 20:35] LABS: Influenza A NEGATIVE (Negative); Influenza B NEGATIVE (Negative); Respiratory Syncytial Virus Ce NEGATIVE (Negative)
[2024-07-21 21:08] LABS: Covid PCR Positive (Negative)
--- NOTE | 2024-07-21 21:13 | ED_ITS ---
HPI - SOB/Dyspnea 2 General: Chief Complaint: Shortness of Breath/Dyspnea Stated Complaint: RESP. DISTRESS Time Seen by Provider: 07/21/24 19:10 History of Present Illness: HPI Narrative: 84-year-old man with a history of COPD c hronic hypoxemic respiratory failure but not normally on oxygen, hyperlipidemia, type 2 diabetes, hypertension and coronary artery disease who presents to the emergency room with worsening shortness of breath and weakness. His was diagnosed with COVID recently. He has been being treated for a UTI as well. He is febrile with a temp of 102 on presentation. He is requiring 2 to 4 L nasal cannula. No altered mental status or focal motor deficits. Patient received Decadron and an updraft in the ambulance. He is in atrial fibrillation on presentation and family and himself state that he has not had A-fib in the past. Related Data Previous Rx's Medication Instructions Recorded amlodipine 10 mg tablet 10 mg PO DAILY #90 tabs 11/19/23 sertraline 50 mg tablet See Rx Instructions .Route 11/19/23 .COMPLEX #90 tabs tamsulosin 0.4 mg capsule 0.4 mg PO DAILY #90 caps 11/19/23 cyclobenzaprine 10 mg tablet 10 mg PO Q8H #14 tabs 12/05/23 albuterol sulfate 90 mcg/actuation See Rx Instructions .Route 05/24/24 aerosol inhaler .COMPLEX #8.5 grams aspirin 81 mg tablet,delayed 81 mg PO DAILY #90 tabs 05/24/24 release carvedilol 25 mg tablet See Rx Instructions .Route 05/24/24 .COMPLEX #180 tabs lisinopril 20 mg tablet See Rx Instructions .Route 05/24/24 .COMPLEX #180 tabs rosuvastatin 40 mg tablet See Rx Instructions .Route 05/24/24 .COMPLEX #90 tabs clopidogrel 75 mg tablet See Rx Instructions .Route 06/19/24 .COMPLEX #90 tabs pantoprazole 40 mg tablet,delayed See Rx Instructions .Route 06/19/24 release .COMPLEX #90 tabs furosemide 40 mg tablet 40 mg PO DAILY #90 tabs 07/19/24 potassium chloride 10 mEq 10 meq PO DAILY #90 caps 07/19/24 capsule,extended release cefdinir 300 mg capsule 300 mg PO BID #20 caps 07/20/24 Allergies Allergy/AdvReac Type Severity Reaction Status Date / Time No Known Allergies Allergy Verified 06/23/24 09:34 Review of Systems 2 Narrative: Constitutional symptoms: Negative except as documented in HPI. Skin symptoms: Negative except as documented in HPI. Eye symptoms: Negative except as documented in HPI. ENMT symptoms: Negative except as documented in HPI. Respiratory symptoms: Negative except as documented in HPI. Cardiovascular symptoms: Negative except as documented in HPI. Gastrointestinal symptoms: Negative except as documented in HPI. Genitourinary symptoms: Negative except as documented in HPI. Musculoskeletal symptoms: Negative except as documented in HPI. Neurologic symptoms: Negative except as documented in HPI. Psychiatric symptoms: Negative except as documented in HPI. Endocrine symptoms: Negative except as documented in HPI. 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 Skin: Warm, dry. Head: Normocephalic, atraumatic. Neck: Supple, trachea midline. Eye: Extraocular movements are intact. Ears, nose, mouth and throat: Tacky oral mucosa Cardiovascular: Irregularly irregular, normal peripheral perfusion. Respiratory: coarse, scattered wheeze, mild increased wob. tachypnea, breath sounds are equal, Symmetrical chest wall expansion. Gastrointestinal: Soft, Nontender, Non distended, Normal bowel sounds. Musculoskeletal: Normal ROM, no deformity. Neurological: Alert and oriented to person, place, time, and situation, No focal neurological deficit observed. Psychiatric: Cooperative, appropriate mood & affect. Course 2 Vital Signs: Vital signs: Vital Signs Temperature 99 F 07/21/24 19:10 Pulse Rate 99 07/21/24 22:07 Respiratory Rate 18 07/21/24 22:07 Blood Pressure 126/86 07/21/24 22:07 Pulse Oximetry 95 07/21/24 22:07 Oxygen Delivery Me thod Nasal Cannula 07/21/24 20:31 Oxygen Flow Rate 2 07/21/24 20:31 MDM - SOB/Dyspnea Medical Decision Making Differential diagnosis for patient with shortness of breath includes but is not limited to and based on the above HPI, review of systems and physical exam: Pneumonia. Bronchitis. Asthma or COPD with acute exacerbation. Acute coronary syndrome / [place]. Pulmonary embolism. Anxiety. Congestive heart failure. Viral infections including influenza and Covid-19. Atrial fibrillation. Anxiety. Pleural effusion. Pneumothorax. Workup: Lab work, chest X-ray and EKG ordered to evaluate, rule in and rule out above pathologies EKG: atrial fibrillation with controlled rate, No ST-T changes, no ectopy, This was reviewed and interpreted by myself the ER physician Chest x-ray: Chronic reticular opacities but no obvious acute process. No pneumothorax. This was reviewed and interpreted by myself the ER physician. Lab Review: Laboratory results were reviewed and interpreted by myself the emergency room physician. Patient is COVID-positive. He also still has a significant urinary tract infection. proBNP is around 5000 which is a little above his baseline. BUN and creatinine are also slightly elevated over his baseline at 1.3. Sepsis flag: Patient has COVID and a UTI. At this point does not have a white count or lactic acidosis think his illness is more his COVID at this time. He is receiving some fluids but I am limiting this. Otherwise sepsis protocol was followed. I reviewed the patient's medical record. Reexamination: Patient remained stable. No increased work of breathing. Some mild wheeze but increased somewhat. No altered mental status. No focal motor deficits. Assessment and plan: COVID-19 COPD with acute exacerbation Acute on chronic hypoxemic respiratory failure Urinary tract infection Possible sepsis New onset atrial fibrillation ?IV Decadron and an updraft on the ambulance and 2 more updraft here in the emergency room. ?Patient is stable on 2 L nasal cannula. He is not normally on oxygen. ?Possible sepsis: No leukocytosis. No lactic acidosis. However he was a little tachycardic initially. ?1 L normal saline bolus. proBNP is elevated over normal. At this point I am being careful with fluid resuscitation. -Broad-spectrum antibiotics were administered. Patient received cefepime for urinary tract infection -Sepsis quality measures. -Lactic acid with a reflex was ordered. -Blood cultures were ordered. ?Review of the chart shows patient does not have a history of A-fib and he and the family denied as well. No A-fib on previous EKGs. Currently rate controlled. He is not anticoagulated. -I discussed the patient with the hospitalist on-call who is admitting the patient. - Discussed findings and plan with patient. Answered any questions. - All laboratory values were reviewed and interpreted personally by myself, the ER physician - All imaging was reviewed and interpreted personally by myself, the ER physician. - Evaluation and treatment of this problem were appropriate in the emergency setting Critical care: -I spent a total of >35 minutes of critical care time managing the patient, independent of any other practitioner. -The time involved in the performance of separately reportable procedures was not counted towards critical care time. Lab Data 07/21/24 19:24 07/21/24 19:24 Labs/Radiology: Radiology Impressions Chest X-Ray 07/21/24 19:14 IMPRESSION: Stable appearance of pulmonary reticular opacities. No acute superimposed airspace disease. No features of heart failure. Laboratory Results WBC 6.78 10^3/uL (3.29-11.43) 07/21/24: RBC 4.83 10^6/uL (3.85-5.65) 07/21/24:24 Hgb 11.50 g/dL (11.27-16.99) 07/21/24 19: Hct 38.9 % (37-53) 07/21/24 19: MCV 80.5 fl (82-101) L 07/21/24 19: MCH 23.8 pg (27-33) L 07/21/24: MCHC 29.6 g/dL (30-55) L 07/21/24: RDW 18.1 % (12.1-15.1) H 07/21/24 19:24 Plt Count 238 10^3/cmm (157-399) 07/21/24: MPV 10.4 fL (7.4-10.4) 07/21/24 19:24 Neut % (Auto) 76.2 % 07/21/24 19:24 Lymph % (Auto) 13.6 % 07/21/24 19:24 [place] % (Auto) 7.7 % 07/21/24 19:24 Eos % (Auto) 1.5 % 07/21/24 19:24 Baso % (Auto) 0.6 % 07/21/24 19:24 Neut # (Auto) 5.17 10^3/uL (1.8-7.7) 07/21/24 19:24 Lymph # (Auto) 0.9 10^3/uL (0.8-4.8) 07/21/24 19:24 [place] # (Auto) 0.5 10^3/uL (0.2-0.9) 07/21/24 19:24 Eos # (Auto) 0.1 10^3/uL (0.0-0.8) 07/21/24 19:24 Baso # (Auto) 0.0 10^3/uL (0.0-0.1) 07/21/24 19:24 Nucleated RBC % (auto) 0 % 07/21/24 19: Nucleated RBCs # 0.0 /100WBC 07/21/24 19:24 D-Dimer 1.59 ug/mLFEU (0-0.59) H 07/21/24 19:24 Specimen Type Arterial 07/21/24 21:24 Sample Site Radial, right 07/21/24 21:24 ABG pH 7.41 (7.35-7.45) 07/21/24 21:24 ABG pCO2 43.8 mmHg (35-45) 07/21/24 21:24 ABG pO2 54.6 mmHg (80.0-100.0) L 07/21/24 21:24 ABG HCO3 27.9 mmol/L (22-26) H 07/21/24 21:24 ABG O2 Saturation 90.9 07/21/24 21:24 ABG Base Excess 2.8 mmol/L (-2.0-2.0) H 07/21/24 21:24 Fernando Test Pos 07/21/24 21:24 A-a O2 Gradient 5.5 mmHg (5-10) 07/21/24 21:24 Hematocrit 33.6 % (42-52) L 07/21/24 21:24 Hgb O2 Saturation 89.3 % (95-100) L 07/21/24 21:24 Carboxyhemoglobin 1.4 %THgb (0.4-20.1) 07/21/24 21:24 Methemoglobin 0.2 % (0.4-1.5) L 07/21/24 21:24 Total Hemoglobin 11.0 g/dL (14-18) L 07/21/24 21:24 Sodium 143.0 mmol/L (131-143) 07/21/24 21:24 Potassium 4.2 mmol/L (3.5-5.0) 07/21/24 21:24 Glucose 115.0 mg/dL (70-115) 07/21/24 21:24 Ionized Calcium 1.2 mmol/L (1.1-1.4) 07/21/24 21:24 O2 Delivery Device Nc 07/21/24 21:24 O2 Liters/Min 2.0 % 07/21/24 21:24 Sports Complex Attendant ID Cl 07/21/24 21:24 Sodium 142 mmol/L (136-145) 07/21/24 19:24 Potassium 4.4 mmol/L (3.5-5.1) 07/21/24 19:24 Chloride 105 mmol/L (98-107) 07/21/24 19:24 Carbon Dioxide 25 mmol/L (22-29) 07/21/24 19:24 Anion Gap 16.4 (5-19) 07/21/24 19:24 BUN 17 mg/dL (8-23) 07/21/24 19:24 Creatinine 1.3 mg/dL (0.7-1.2) H 07/21/24 19:24 GFR Calculation Not Reportable 07/21/24 19:24 Glucose 122 mg/dL (65-115) H 07/21/24 19:24 Calculated Osmolality 297 mOsm/kg (285-295) H 07/21/24 19:24 Lactic Acid 1.0 mmol/L (0.5-2.2) 07/21/24 19:24 Calcium 8.1 mg/dL (8.5-10.5) L 07/21/24 19:24 Total Bilirubin 0.8 mg/dL (0.15-1.2) 07/21/24 19:24 AST 18 U/L (0-40) 07/21/24 19:24 ALT 12 U/L (0-41) 07/21/24 19:24 Alkaline Phosphatase 166 U/L (40-130) H 07/21/24 19:24 Troponin T Baseline 19 ng/L (0-15) H 07/21/24 19:24 Troponin T 120 Minute 18.06 ng/L (0-15) H 07/21/24 21:07 Delta Troponin T -0.94 ABS# (0-10) L 07/21/24 21:07 C-Reactive Protein 30.7 mg/L (0.0-4.9) H 07/21/24 19:24 NT-Pro-B Natriuret Pep 5608 pg/mL (0-450) H 07/21/24 19:24 Total Protein 6.9 g/dL (6.6-8.7) 07/21/24 19:24 Albumin 3.5 g/dL (3.5-5.2) 07/21/24 19:24 Globulin 3.4 g/dL (1.3-4.6) 07/21/24 19:24 Urine Color Yellow (Yellow) 07/21/24 19:25 Urine Appearance Clear (CLEAR) 07/21/24 19:25 Urine pH 5.5 (5-7) 07/21/24 19:25 Ur Specific [place] 1.016 (1.005-1.030) 07/21/24 19:25 Urine Protein 2+ (Negative) H 07/21/24 19:25 Urine Glucose (UA) Norm (Normal) 07/21/24 19:25 Urine Ketones Trace (Negative) H 07/21/24 19:25 Urine Blood 1+ (Negative) H 07/21/24 19:25 Urine Nitrate Negative (Negative) 07/21/24 19:25 Urine Bilirubin Neg (Negative) 07/21/24 19:25 Urine Urobilinogen 1.0 mg/dL (Negative) 07/21/24 19:25 Ur Leukocyte Esterase 2+ (Negative) H 07/21/24 19:25 Urine RBC 0-4 /hpf (0-2) H 07/21/24 19:25 Urine WBC 51-100 /hpf (0-5) H 07/21/24 19:25 Ur Renal Epithelial Cell N /hpf 07/21/24 19:25 Amorphous Sediment Not Reportable 07/21/24 19:25 Hyaline Casts 13.63 /lpf 07/21/24 19:25 Coronavirus (PCR) Positive (Negative) A 07/21/24 19:25 Influenza A (PCR) Negative (Negative) 07/21/24 19:25 Influenza Type B (PCR) Negative (Negative) 07/21/24 19:25 RSV (PCR) Negative (Negative) 07/21/24 19:25 All radiology interpretation(s) finalized by discharge Discharge Plan Discharge Patient Disposition: Admitted As Inpatient Clinical Impression: COVID-19, Urinary tract infection, COPD with acute exacerbation, Acute on chronic hypoxic respiratory failure, New onset atrial fibrillation Condition: Stable Coding Level of Care Code ED Fishing Vessel Captain for Maxim Kim
--- NOTE | 2024-07-21 21:14 | ECG_ITS ---
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[id number] Requested By: Juana Velasquez Order Number: [id number] Magdalena MD: DANIELA DESAI Measurements Intervals [place] Rate: 92 P: 0 NV: 0 QRS: 263 QRSD: 137 T: 58 QT: 386 QTc: 479 Interpretive Statements ATRIAL FIBRILLATION RIGHT AXIS DEVIATION [QRS AXIS > 100] RIGHT BUNDLE BRANCH BLOCK [120+ ms QRS DURATION, UPRIGHT V1, 40+ ms S IN I/aVL/V4/V5/V6] Compared to ECG 11/30/2023 20:52:01 Right-axis deviation now present Sinus rhythm no longer present Left-axis deviation no longer present Electronically Signed On 07-23-2024 19:00:54 CDT by DANIELA DESAI [id number]
[2024-07-21] MEDS: sodium chloride 0.9% 1,000 ML 999 ML IV (21:25)
[2024-07-21] MEDS: cefepime 2,000 MG in sodium chloride 0.9% (plus) 50 ML 100 MG IV (21:25)
[2024-07-21 21:29] LABS: ABG PCO2 43.8 mmHg (35-45); ABG PH Result 7.41 (7.35-7.45); Alveolar-Arterial Oxygen Gradi 5.5 mmHg (5-10); Arterial Blood Gas Hematocrit 33.6 % (42-52); Base Excess ABG 2.8 mmol/L (-2.0-2.0); Blood Gas Allen Test Pos; Blood Gas Operator Identificat CL; Blood Gas Sample Site Radial, right; Blood Gas Sample Type Arterial; Carboxyhemoglobin 1.4 %THgb (0.4-20.1); HCO3 ABG 27.9 mmol/L (22-26); HGB O2 Sat 89.3 % (95-100); Ionized Calcium Level - ABG 1.2 mmol/L (1.1-1.4); Methemoglobin 0.2 % (0.4-1.5); Oxygen Device NC; Oxygen Saturation ABG 90.9; PO2 ABG 54.6 mmHg (80.0-100.0); Potassium Level - ABG 4.2 mmol/L (3.5-5.0)
[2024-07-21 21:32] LABS: Troponin 5 2HR 18.06 ng/L (0-15)
[2024-07-21 21:34] LABS: Troponin 5 2HR Delta -0.94 ABS# (0-10)
--- NOTE | 2024-07-21 22:00 | P.HP_ITS ---
Providers/Chief Complaint 2 Primary Care Provider: Faustino Morales DO Chief Complaint: RESP. DISTRESS History of Present Illness Robby Haskins is a 84 year old male history of COPD, CAD status post CABG, history of aortic valve replacement, history of rheumatoid arthritis, type 2 diabetes mellitus, who presents to [facility] due to weakness, fatigue, shortness of breath, cough. Patient tells me that his daughter tested positive for COVID, for the last few days he has been having fatigue, malaise, shortness of breath with exertion, and nonproductive cough, also has bilateral lower extremity edema, swelling. He denies any chest pain, no hemoptysis, no lightheadedness, no dizziness. He was also recently started on antibiotics for a UTI, denies any flank pain. He does report history of COPD, not active smoker, but he has oxygen prescribed him has not needed oxygen thus so far, but is needing 2 L in the emergency room. Does report fevers at home. Denies a prior history of atrial fibrillation. Does report relative immobility, he does report a fall, he has area of edema, swelling, of right calf, with a superficial abrasion Review of Systems 2 Const: Reports: fever(s), chills and malaise Card: Denies: chest pain Resp: Reports: dyspnea Medications/Allergies Home Medications Medication Instructions Recorded Confirmed Last Taken Type amlodipine 10 mg tablet 10 mg PO DAILY #90 tabs 11/19/23 06/23/24 Unknown Rx sertraline 50 mg tablet See Rx Instructions .Route 11/19/23 06/23/24 Unknown Rx .COMPLEX #90 tabs tamsulosin 0.4 mg capsule 0.4 mg PO DAILY #90 caps 11/19/23 06/23/24 Unknown Rx cyclobenzaprine 10 mg tablet 10 mg PO Q8H #14 tabs 12/05/23 06/23/24 Unknown Rx albuterol sulfate 90 mcg/actuation See Rx Instructions .Route 05/24/24 06/23/24 Unknown Rx aerosol inhaler .COMPLEX #8.5 grams aspirin 81 mg tablet,delayed 81 mg PO DAILY #90 tabs 05/24/24 06/23/24 Unknown Rx release carvedilol 25 mg tablet See Rx Instructions .Route 05/24/24 06/23/24 Unknown Rx .COMPLEX #180 tabs lisinopril 20 mg tablet See Rx Instructions .Route 05/24/24 06/23/24 Unknown Rx .COMPLEX #180 tabs rosuvastatin 40 mg tablet See Rx Instructions .Route 05/24/24 06/23/24 Unknown Rx .COMPLEX #90 tabs clopidogrel 75 mg tablet See Rx Instructions .Route 06/19/24 06/23/24 Unknown Rx .COMPLEX #90 tabs pantoprazole 40 mg tablet,delayed See Rx Instructions .Route 06/19/24 06/23/24 Unknown Rx release .COMPLEX #90 tabs furosemide 40 mg tablet 40 mg PO DAILY #90 tabs 07/19/24 Unknown Rx potassium chloride 10 mEq 10 meq PO DAILY #90 caps 07/19/24 Unknown Rx capsule,extended release cefdinir 300 mg capsule 300 mg PO BID #20 caps 07/20/24 Unknown Rx Allergies Allergy/AdvReac Type Severity Reaction Status Date / Time No Known Allergies Allergy Verified 06/23/24 09:34 PFSH Acute 2 PFSH: Medical History Hyperlipidemia Stage 1 mild COPD by GOLD classification Seronegative rheumatoid arthritis 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 Type 2 diabetes mellitus Arthritis Peripheral vascular disease Hypertension Coronary artery disease Surgical History S/P carotid endarterectomy Left-sided S/P CABG (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 Family History Other CAD (coronary artery disease) Stroke Social History Smoking and tobacco/nicotine status: never used tobacco/nicotine Alcohol intake: never Substance/Drug Use: never Housing: House Vitals/I&O/Wt Last Vital Signs Temp 99 F 07/21/24 19:10 Pulse 98 07/21/24 21:35 Resp 16 07/21/24 21:35 BP 121/86 07/21/24 21:35 Pulse Ox 94 07/21/24 21:35 O2 Del Method Nasal Cannula 07/21/24 20:31 O2 Flow Rate 2 07/21/24 20:31 07/21/24 07/21/24 07/21/24 06:59 14:59 22:59 Intake Total Balance Physical Exam 2 Const: COMMON NORMALS: no acute distress and patient oriented x3 HENMT: COMMON NORMALS: normocephalic HEAD & SCALP: normocephalic Eye: COMMON NORMALS: Equal, round and reactive pupils present Neck/C-Spine: COMMON NORMALS: no JVD Lymph: LYMPHATIC: no lymphadenopathy noted Resp: COMMON NORMALS: normal respiratory effort, No retractions and No use of accessory muscles AUSCULTATION: crackles and wheezes Cardio: COMMON NORMALS: no JVD, regular rate, regular rhythm, S1 normal heart sound present and S2 normal heart sound present RATE: regular rate RHYTHM: regular rhythm HEART SOUNDS: S1 normal heart sound present and S2 normal heart sound present GI: COMMON NORMALS: Normal to inspection, nondistended, normoactive bowel sounds present, Soft to palpation and non-tender Extremity: NARRATIVE EXTREMITY EXAM: 2+ pitting edema Right davila, superficial abrasion, with erythema, swelling, Neuro: COMMON NORMALS: patient oriented x3, CN's II-XII intact bilaterally and moves all extremities Psych: COMMON NORMALS: mental status grossly normal Data 07/21/24 19:24 07/21/24 19:24 Micro: Microbiology 07/21/24 19:29 Blood Culture - Preliminary Blood SPECIMEN COLLECTED 07/21/24 19:24 Blood Culture - Preliminary Blood SPECIMEN COLLECTED A&P Assessment and plan (1) Acute hypoxic respiratory failure: (2) Acute exacerbation of chronic obstructive pulmonary disease: (3) Pneumonia due to COVID-19 virus: (4) New onset atrial fibrillation: (5) Coronary artery disease: Qualifiers: Coronary Disease-Associated Artery/Lesion type: bypass graft [place] vs. transplanted heart: [place] heart Associated angina: without angina Qualified Code(s): I25.810 - Atherosclerosis of coronary artery bypass graft(s) without angina pectoris (6) Type 2 diabetes mellitus: Qualifiers: Diabetes mellitus assisted insulin use: without assisted use Diabetes mellitus complication status: without complication Qualified Code(s): E11.9 - Type 2 diabetes mellitus without complications (7) UTI (urinary tract infection): Qualifiers: Urinary tract infection type: acute cystitis Hematuria presence: with hematuria Qualified Code(s): N30.01 - Acute cystitis with hematuria (8) CHF exacerbation: Plan Acute hypoxic respiratory failure -Multifactorial -COVID-19 pneumonia -COPD exacerbation, wheezing -CHF exacerbation, diastolic BNP over 5000, evidence of fluid overload, bilateral extremity edema ? Plan ? Monitor MedSurg closely ? DuoNeb ? Budesonide ? Sputum cultures ?blood cultures ? Given patient's bilateral extremity edema, swelling, new onset A-fib, elevated troponin, elevated D-dimer order CT angiogram for PE ? Venous ultrasound for DVT ? Start remdesivir ? Continue Decadron 6 mg IV push every 24 hours ? 1 dose IV Lasix 40 mg IV push once, Daily dose Lasix -Monitor creatinine, monitor urine output -Place Baum catheter ? DNR/DNI, confirmed with patient multiple times ? Heparin drip for DVT prophylaxis New onset atrial fibrillation ? Continue home Coreg ? Currently rate controlled ? Start heparin drip ? Cardiac echo UTI, ? Continue cefepime ? Follow urine culture Type 2 diabetes mellitus, low-dose sliding scale History of CAD, CABG, continue aspirin, statin, Plavix Hypertension hold lisinopril Attestations 2 Medical Necessity Statement*: Patient requires hospitalization, inpatient, greater than 2 minutes, for acute hypoxic respiratory failure secondary COVID-19 pneumonia, COPD CHF, UTI, new onset A-fib Diagnoses Acute hypoxic respiratory failure J96.01 Acute exacerbation of chronic obstructive pulmonary disease J44.1 Pneumonia due to COVID-19 virus U07.1; J12.82 New onset atrial fibrillation I48.91 Coronary artery disease involving coronary bypass graft of [place] heart without angina pectoris I25.810 Coronary Disease-Associated Artery/Lesion type: bypass graft [place] vs. transplanted heart: [place] heart Associated angina: without angina Type 2 diabetes mellitus without complication, without long-term current use of insulin E11.9 Diabetes mellitus assisted insulin use: without termite exterminator use Diabetes mellitus complication status: without complication Acute cystitis with hematuria N30.01 Urinary tract infection type: acute cystitis Hematuria presence: with hematuria CHF exacerbation I50.9
--- NOTE | 2024-07-21 22:00 | CTR_ITS ---
PROCEDURE INFORMATION: Exam: CTA Chest With Contrast Exam date and time: 07/21/2024 10:23 PM Age: 84 years old Clinical indication: Abnormal findings; Abnormal diagnostic tests; Elevated d-dimer; Cough and shortness of breath; Prior surgery; Surgery date: 6+ months; Surgery type: Cabg. Avr; Patient HX: Cough with SOB and hypoxia. Dimer 1.59. Covid positive. ; Additional info: SOB, le swelling TECHNIQUE: Imaging protocol: Computed tomographic angiography of the chest with contrast. Exam focused on the arteries. 3D rendering (Not supervised by radiologist): MIP and/or 3D reconstructed images were created by the technologist. Radiation optimization: All CT scans at this facility use at least one of these dose optimization techniques: automated exposure control; mA and/or kV adjustment per patient size (includes targeted exams where dose is matched to clinical indication); or iterative reconstruction. Contrast material: OMNI 350; Contrast volume: 76 ml; Contrast route: INTRAVENOUS (IV); COMPARISON: CR (CHEST, ) 07/21/2024 7:33 PM RADIATION DOSE METRICS: Total DLP (mGy-cm): 368.46 FINDINGS: Tubes, catheters and devices: Aortic valve prosthesis is in place. Pulmonary arteries: Normal caliber pulmonary artery tree. No filling defects are visible. Aorta: Normal caliber thoracic aorta. There is insufficient contrast in the aortic lumen to exclude penetrating ulcer, but no displaced calcium is seen to suggest acute dissection. Thyroid: Homogeneous thyroid. Lungs: There is diffuse bronchial wall thickening with bronchial luminal narrowing which is most severe at the posterior lung bases. Multifocal bronchial occlusion is noted. No airspace disease. Calcified granulomata. Minor dependent change at each lung base. Pleural spaces: No pneumothorax. No pleural effusion. Heart: Heart size is normal. Coronary arteries: Extensive coronary artery hyperdensity could be calcification and/or stent material. Lymph nodes: Scattered non pathologically enlarged mediastinal lymph nodes. Enlarged subcarinal lymph node measures 1.7 cm short axis diameter. No axillary or supraclavicular adenopathy. Bones/joints: No destructive lesions. No acute fracture. Soft tissues: Edema is partly visualized in the right lateral chest wall. CT/CT angio chest PE protcl [id number] IMPRESSION: 1. No findings of acute pulmonary embolism. No evidence of acute aortic dissection. 2. There are changes of acute on chronic bronchitis. No airspace disease. In particular, the characteristic ground-glass infiltrates of COVID pneumonia are not currently present. 3. Mildly enlarged subcarinal lymph node noted, significance unclear. Correlate with any available prior imaging. Alternatively, consider follow-up exam in 3 months to confirm stability or regression.
[2024-07-21 22:01] LABS: D Dimer 1.59 ug/mLFEU (0-0.59)
[2024-07-21 22:18] LABS: INR 1.13 (0.8-1.2)
[2024-07-21] MEDS: iohexol 350 mg/mL 500 mL Btl (per mL) IV (22:35)
[2024-07-21 22:45] LABS: Lactic Sepsis W/Reflex 0.8 mmol/L (0.5-2.2)
[2024-07-21 23:41] LABS: Estmated Average Glucose 137; Hemoglobin A1C 6.4 % (4.0-6.0)
[2024-07-21 23:51] LABS: Chol HDL Ratio 4.05 mg/dL (1.0-5.00); Cholesterol 81 mg/dL (0-200); HDL Cholesterol 20 mg/dL (60-100); LDL Cholesterol Calculated 41 mg/dL (50-129); LDL HDL Ratio 2.05 RATIO (0.00-3.22); Thyroid Stimulating Hormone 1.57 uIU/mL (0.27-4.20); Triglycerides 101 mg/dL (0-150)
[2024-07-22] VITALS (14 sets, daily range): BP systolic 106–123; BP diastolic 62–77; PULSE 71–100; RESP 16–20; TEMP 36.3–37.1; O2SAT 92–98
[2024-07-22] MEDS: ipratropium-albuterol 3 mL Neb INHALATION ×6 (00:25→20:44)
[2024-07-22] MEDS: dexamethasone 10 mg/mL INJ 6 MG IVP ×2 (00:33→23:38)
[2024-07-22] MEDS: pantoprazole 40 mg SDV IVP ×3 (00:33→23:38)
[2024-07-22] MEDS: FUROsemide 10 mg/mL SDV 4mL 40 MG IVP (00:33)
[2024-07-22] MEDS: heparin 5,000 unit/mL INJ 1 mL IVP ×2 (00:40→14:12)
[2024-07-22] MEDS: remdesivir 200 MG in sodium chloride 0.9% (100 ml) 60 ML 100 MG IV (00:43)
[2024-07-22] MEDS: heparin drip 25,000 UNIT/500 ML PREMIX 22 UNIT IV (01:04)
[2024-07-22] MEDS: sodium chloride 0.9% (100 ml) 100 ML (01:19)
--- NOTE | 2024-07-22 01:47 | ECG_ITS ---
[facility] Test Date: 2024-07-22 Pat Name: Robby Haskins Department: Room: 264 Gender: Male Alcohol Still Operator: : 1940 Requested By: Juana Velasquez Order Number: [id number] Magdalena MD: DANIELA DESAI Measurements Intervals [place] Rate: 96 P: 0 AK: 0 QRS: -85 QRSD: 145 T: 53 QT: 412 QTc: 521 Interpretive Statements ATRIAL FIBRILLATION RIGHT BUNDLE BRANCH BLOCK [120+ ms QRS DURATION, UPRIGHT V1, 40+ ms S IN I/aVL/V4/V5/V6] LEFT ANTERIOR FASCICULAR BLOCK [QRS AXIS <= -45, QR IN I, RS IN II] Compared to ECG 07/21/2024 21:14:05 Left anterior fascicular block now present Right-axis deviation no longer present Electronically Signed On 07-23-2024 18:57:49 CDT by DANIELA DESAI [id number]
[2024-07-22 06:22] LABS: Basophils % 0.5 %; Hematocrit 34.4 % (37-53); Lymphocytes # 0.9 10^3/uL (0.8-4.8); Lymphocytes % 13.9 %; Mean Corpuscular HGB Conc 29.1 g/dL (30-55); Mean Corpuscular Hemoglobin 23.8 pg (27-33); Mean Corpuscular Volume 81.9 fl (82-101); Mean Platelet Volume 9.9 fL (7.4-10.4); Monocytes # 0.2 10^3/uL (0.2-0.9); Monocytes % 2.9 %; Neutrophils # 4.99 10^3/uL (1.8-7.7); Neutrophils % 81.6 %; Nucleated Red Blood Cells % 0 %; Platelet Count 198 10^3/cmm (157-399); White Blood Count 6.12 10^3/uL (3.29-11.43)
[2024-07-22 06:28] LABS: Glucose Point of Care 137 mg/dL (70-110)
[2024-07-22 06:37] LABS: Troponin 5 6HR 19.03 ng/L (0-15)
[2024-07-22 06:41] LABS: Anion Gap 16.8 (5-19); Blood Urea Nitrogen 18 mg/dL (8-23); Calcium 7.7 mg/dL (8.5-10.5); Carbon Dioxide 24 mmol/L (22-29); Chloride 100 mmol/L (98-107); Creatinine Clr Calc Pharmacy 50.0339; Glucose 145 mg/dL (65-115); Osmolality Calculated 288 mOsm/kg (285-295); Potassium 3.8 mmol/L (3.5-5.1); Sodium 137 mmol/L (136-145)
[2024-07-22 06:45] LABS: Troponin 5 6HR Delta 0.03 ng/L (0-12)
[2024-07-22 06:54] LABS: Partial Thromboplastin Time 224.3 SECONDS (23.9-36.7)
[2024-07-22] MEDS: tamsulosin 0.4 mg Capsule PO (08:07)
[2024-07-22] MEDS: carvedilol 25 mg Tablet PO ×2 (08:08→17:00)
[2024-07-22] MEDS: sertraline 50 mg Tablet PO (08:08)
[2024-07-22] MEDS: clopidogrel 75 mg Tablet PO (08:08)
[2024-07-22] MEDS: aspirin 81 mg EC Tablet PO (08:08)
[2024-07-22] MEDS: atorvastatin 40 mg Tablet 80 MG PO (08:08)
[2024-07-22] MEDS: budesonide 0.5 mg/2 mL Neb INHALATION ×2 (08:56→20:44)
[2024-07-22 11:18] LABS: Glucose Point of Care 174 mg/dL (70-110)
[2024-07-22] MEDS: insulin lispro 100 unit/1 mL SUBCUT ×2 (11:21→17:00)
[2024-07-22 13:31] LABS: Partial Thromboplastin Time 36.3 SECONDS (23.9-36.7)
--- NOTE | 2024-07-22 15:26 | PC.NURSE ---
Attempted to call daughter, Dariela, to review list of current home medications. Had to leave a voicemail.
[2024-07-22 16:40] LABS: Glucose Point of Care 146 mg/dL (70-110)
--- NOTE | 2024-07-22 17:00 | PM.PN ---
Subjective Subjective: Daughter is present at the bedside. Patient states that he is feeling better since he was started on treatment. Says that he is not having any pain, he has been able to eat and drink, and he was able to rest better last night. He is still having some mild shortness of breath, but overall he says he feels much better. Medications: Reviewed: Yes Vitals/I&O/Wt Last Vital Signs Temp 97.3 F L 07/22/24 16:15 Pulse 74 07/22/24 16:21 Resp 16 07/22/24 16:21 BP 107/64 07/22/24 16:15 Pulse Ox 95 07/22/24 16:21 O2 Del Method Nasal Cannula 07/22/24 16:21 O2 Flow Rate 2 07/22/24 16:21 07/22/24 07/22/24 07/22/24 06:59 14:59 22:59 Intake Total 328.7 / 1358.7 472 / 472 Output Total 1250 / 1250 1750 / 1750 Balance -921.3 / 108.7 -1278 / -1278 Weight last 48 hrs Weight 184 lb 9.6 oz Weight 177 lb 4.8 oz Physical Exam Narrative: General: Cooperative patient in no apparent distress. Well developed. HEENT: Normocephalic, Atraumatic. External ears normal. Nasal passages patent without drainage. MMM. Heart: Irregularly irregular with normal heart rate. Resp: Bibasilar Rales, wheezing, rhonchi. Abd: Soft, non-tender. Non-distended. Extremities: Right hemiparesis. Skin: No rash or lesions on exposed areas. Neuro: Right hemiparesis of the upper and lower extremity. Apraxic speech. Urinary Catheter Management: Baum: Cath Placed During This Visit: yes Reason for Continuing Indwelling Catheter: Other Urinary Catheter Date of Insertion: 07/22/24 Urinary Catheter Time of Insertion: 01:24 Data 07/22/24 06:02 07/22/24 06:02 Micro: Microbiology 07/21/24 19:29 Blood Culture - Preliminary Blood SPECIMEN COLLECTED 07/21/24 19:24 Blood Culture - Preliminary Blood SPECIMEN COLLECTED A&P Assessment and plan (1) Acute hypoxic respiratory failure: (2) Acute exacerbation of chronic obstructive pulmonary disease: (3) Pneumonia due to COVID-19 virus: (4) New onset atrial fibrillation: (5) Coronary artery disease: Qualifiers: Coronary Disease-Associated Artery/Lesion type: bypass graft [place] vs. transplanted heart: [place] heart Associated angina: without angina Qualified Code(s): I25.810 - Atherosclerosis of coronary artery bypass graft(s) without angina pectoris (6) Type 2 diabetes mellitus: Qualifiers: Diabetes mellitus middle or intermediate school principal insulin use: without middle or intermediate school principal use Diabetes mellitus complication status: without complication Qualified Code(s): E11.9 - Type 2 diabetes mellitus without complications (7) UTI (urinary tract infection): Qualifiers: Urinary tract infection type: acute cystitis Hematuria presence: with hematuria Qualified Code(s): N30.01 - Acute cystitis with hematuria (8) CHF exacerbation: Plan PLAN FOR TODAY: Continue close inpatient monitoring. Positive for COVID-19. Currently on remdesivir, dexamethasone. Started on cefepime upon admission for UTI and concern for underlying bacterial pneumonia. Will continue. Lower extremity edema has improved. He was likely in CHF exacerbation upon discharge, this may have been precipitated by infection. Blood pressure is stable. His breathing has improved. His oxygen sat is the mid to upper 90s on 2 L. Continue DuoNebs, O2 protocol, RAAT. Continue heparin drip per protocol for treatment of atrial fibrillation. Will transition to oral therapies prior to discharge. Urine culture is currently growing Proteus species. This is susceptible to current antibiotics. Blood cultures currently negative to date. Will obtain an echocardiogram. Continue home medications for other chronic illnesses. Will have physical therapy evaluate and treat. Code Status: DNR/DNI IVF: None DVT PPx: Heparin GI PPx: None ABx: Remdesivir, cefepime Diet: Cardiac Discharge plan: Home when appropriate Attestations Medical Necessity Statement*: Patient requires hospitalization, inpatient, greater than 2 minutes, for acute hypoxic respiratory failure secondary COVID-19 pneumonia, COPD CHF, UTI, new onset A-fib Coding Level of Care Code Acute Code for Chg Fwd Moderate MDM includes number and complexity of problems actively addressed during encounter, amount and/or complexity of data reviewed/ordered and described risk of complication, morbidity or mortality of management as documented Diagnoses Acute hypoxic respiratory failure J96.01 Acute exacerbation of chronic obstructive pulmonary disease J44.1 Pneumonia due to COVID-19 virus U07.1; J12.82 New onset atrial fibrillation I48.91 Coronary artery disease involving coronary bypass graft of [place] heart without angina pectoris I25.810 Coronary Disease-Associated Artery/Lesion type: bypass graft [place] vs. transplanted heart: [place] heart Associated angina: without angina Type 2 diabetes mellitus without complication, without long-term current use of insulin E11.9 Diabetes mellitus middle or intermediate school principal insulin use: without middle or intermediate school principal use Diabetes mellitus complication status: without complication Acute cystitis with hematuria N30.01 Urinary tract infection type: acute cystitis Hematuria presence: with hematuria CHF exacerbation I50.9
[2024-07-22] MEDS: remdesivir 100 MG in sodium chloride 0.9% (100 ml) 80 ML IV (17:01)
[2024-07-22 21:15] LABS: Glucose Point of Care 173 mg/dL (70-110)
[2024-07-22 21:51] LABS: Partial Thromboplastin Time > 250.0 SECONDS (23.9-36.7)
[2024-07-22] MEDS: cefepime 1,000 MG in sodium chloride 0.9% (plus) 50 ML 100 MG IV (21:58)
--- NOTE | 2024-07-22 22:00 | USR_ITS ---
PROCEDURE INFORMATION: Exam: US Duplex Lower Extremity Veins, Bilateral Exam date and time: 07/22/2024 4:06 PM Age: 84 years old Clinical indication: Swelling (edema) of limb; Lower extremity, bilateral TECHNIQUE: Imaging protocol: Real-time duplex ultrasound of the bilateral extremities with 2-D ford scale, color Doppler flow and spectral waveform analysis including responses to compression and other maneuvers (when performed) with image documentation. Complete exam focused on the lower extremity veins. COMPARISON: CT abdomen pelvis w con* [id number] 09/11/2019 2:49 AM FINDINGS: Right deep veins: The common femoral, femoral, proximal profunda femoral and popliteal veins are patent without evidence of thrombus and demonstrate normal waveforms. Visualized deep calf veins are patent. Left deep veins: The common femoral, femoral, proximal profunda femoral and popliteal veins are patent without evidence of thrombus and demonstrate normal waveforms. Visualized deep calf veins are patent. Superficial veins: Bilateral saphenofemoral junctions are patent without thrombus. No evidence of thrombophlebitis. Soft tissues: No evidence of fluid collection. US/CV venous duplex [facility] [id number] IMPRESSION: 1. No sonographic evidence of deep venous thrombosis in either lower extremity.
--- NOTE | 2024-07-22 22:04 | PC.NURSE ---
aPtt result >250. This nurse contacted Dr. Aguirre via phone about result. Physician ordered to hold heparin drip and repeat aPtt in 4 hours.
--- NOTE | 2024-07-22 22:10 | USCV_ITS ---
Robby Haskins Age: 84 Gender: M : 1940 Exam Date: 07/22/2024 17:42 Ordering Phys: Marcos Aguirre MD Technologist: Yusuf Ramesh [place] [facility] [place]: new onset afib BP: 107 / 64 HR: 67 Rhythm: Sinus Technical Quality: Poor MEASUREMENTS (Male / Female) Normal Values 2D ECHO LV Diastolic Diameter PLAX 3.4 cm 4.2 - 5.9 / 3.9 - 5.3 cm IVS Diastolic Thickness 1.2 cm 0.6 - 1.0 / 0.6 - 0.9 cm IVS Systolic Thickness 2.0 cm LVPW Diastolic Thickness 1.9 cm 0.6 - 1.0 / 0.6 - 0.9 cm LVPW Systolic Thickness 2.2 cm LVOT Diameter 2.0 cm LV Ejection Fraction 2D Teich 56.3 % LV Ejection Fraction MOD 4C 59.4 % LV Ejection Fraction MOD 2C 63.4 % LV Ejection Fraction 2C AL 64.2 % LA Diameter 4.5 cm RA Systolic Volume 4C AL 46.1 ml RA Systolic Volume 4C MOD 48.3 ml LA Sys Volume AL 78.6 cm cubed LA Sys Volume Index AL 38.9 cm cubed/m squared Aorta at Sinotubular Diameter 2.2 cm IVC Diameter 1.7 cm M-MODE LA Ao Ratio MM 1.5 AV Cusp Separation MM 0.9 cm DOPPLER AV Peak Velocity 207.0 cm/s LVOT Peak Velocity 65.0 cm/s AV Area Cont Eq vti 0.9 cm squared AV Area Cont Eq pk 1.0 cm squared MV Peak Velocity 300.2 cm/s MV Area PHT 4.2 cm squared Mitral E to A Ratio 3.3 TR Peak Velocity 396.0 cm/s TR Peak Gradient 62.7 mmHg TR Mean Velocity 272.0 cm/s TR Mean Gradient 33.4 mmHg TR Velocity Time Integral 112.5 cm PV Peak Velocity 63.0 cm/s RV Ejection Time 0.2 s FINDINGS Left Ventricle Normal left ventricular size, systolic function and wall thickness, with no regional wall motion abnormalities. Estimated ejection fraction 55%. In the presence of atrial fibrillation diastolic function cannot be assessed accurately. Right Ventricle The right ventricle is normal in size and function. Right Atrium The right atrium is normal in size. Left Atrium Moderately increased left atrial size. Mitral Valve Severely thickened mitral valve. Severe mitral annular calcification. Mitral valve stenosis. Mild-moderate mitral valve regurgitation. Aortic Valve Bioprosthetic aortic valve sitting in a normal position without any valvular or paravalvular leak. There appeared to be mean gradient across the bioprosthetic aortic valve 9 mmHg. Tricuspid Valve Structurally normal tricuspid valve without significant stenosis or regurgitation. Pulmonary artery systolic pressure is normal. Pulmonic Valve Structurally normal pulmonic valve without significant stenosis. There is no pulmonic regurgitation. Pericardium Normal pericardium without effusion. Aorta Normal ascending aorta dimension. IVC The inferior vena cava appears normal. CONCLUSIONS 1-Normal left ventricular size, systolic function and wall thickness, with no regional wall motion abnormalities. Estimated ejection fraction 55%. In the presence of atrial fibrillation diastolic function cannot be assessed accurately. 2-Severely thickened mitral valve. Severe mitral annular calcification. Mitral valve stenosis. Mild-moderate mitral valve regurgitation. 3-Bioprosthetic aortic valve sitting in a normal position without any valvular or paravalvular leak. There appeared to be mean gradient across the bioprosthetic aortic valve 9 mmHg. 4-There is no pericardial effusion. 5-Right atrial pressure is around 15 mm of mercury. Ewa Hoskins MD (Electronically Signed) Final Date: 23 July 2024 09:04 S
[2024-07-23] VITALS (15 sets, daily range): BP systolic 93–127; BP diastolic 58–86; PULSE 70–127; RESP 16–20; TEMP 36.3–36.8; O2SAT 90–96
[2024-07-23] MEDS: ipratropium-albuterol 3 mL Neb INHALATION ×6 (01:18→20:34)
[2024-07-23 01:59] LABS: Partial Thromboplastin Time 66.8 SECONDS (23.9-36.7)
--- NOTE | 2024-07-23 02:49 | PC.NURSE ---
Heparin drip resumed at 22ml/hr per physician order.
[2024-07-23 06:28] LABS: Glucose Point of Care 143 mg/dL (70-110)
[2024-07-23] MEDS: carvedilol 25 mg Tablet PO ×2 (06:35→17:51)
--- NOTE | 2024-07-23 06:37 | PC.NURSE ---
Patient having episodes of tachycardia, 110-130s, with atrial fibrillation rhythm. Physician notified of change in vital signs. Patient is resting with eyes closed, asymptomatic. Physician ordered to have 0900 Carvedilol given now.
[2024-07-23] MEDS: budesonide 0.5 mg/2 mL Neb INHALATION ×2 (08:13→20:34)
[2024-07-23] MEDS: tamsulosin 0.4 mg Capsule PO (08:17)
[2024-07-23] MEDS: sertraline 50 mg Tablet PO (08:17)
[2024-07-23] MEDS: clopidogrel 75 mg Tablet PO (08:17)
[2024-07-23] MEDS: atorvastatin 40 mg Tablet 80 MG PO (08:17)
[2024-07-23] MEDS: aspirin 81 mg EC Tablet PO (08:17)
[2024-07-23] MEDS: insulin lispro 100 unit/1 mL SUBCUT ×3 (08:18→17:50)
[2024-07-23 09:43] LABS: Partial Thromboplastin Time 193.7 SECONDS (23.9-36.7)
[2024-07-23 11:30] LABS: Glucose Point of Care 162 mg/dL (70-110)
[2024-07-23] MEDS: pantoprazole 40 mg SDV IVP ×2 (12:05→23:25)
[2024-07-23 13:44] LABS: Basophils % 0.1 %; Eosinophils % 0.1 %; Hematocrit 33.9 % (37-53); Lymphocytes % 8.5 %; Mean Corpuscular HGB Conc 29.8 g/dL (30-55); Mean Corpuscular Hemoglobin 23.9 pg (27-33); Mean Corpuscular Volume 80.3 fl (82-101); Mean Platelet Volume 10.4 fL (7.4-10.4); Monocytes # 0.7 10^3/uL (0.2-0.9); Monocytes % 5.8 %; Neutrophils # 9.61 10^3/uL (1.8-7.7); Neutrophils % 85.1 %; Nucleated Red Blood Cells % 0 %; Platelet Count 261 10^3/cmm (157-399); Red Blood Count 4.22 10^6/uL (3.85-5.65); Red Cell Distribution Width 18.1 % (12.1-15.1)
[2024-07-23 14:07] LABS: Alanine Aminotransferase 11 U/L (0-41); Albumin Level 2.9 g/dL (3.5-5.2); Alkaline Phosphatase 122 U/L (40-130); Anion Gap 15.8 (5-19); Aspartate Amino Transferase 18 U/L (0-40); Blood Urea Nitrogen 27 mg/dL (8-23); C Reactive Protein 44.2 mg/L (0.0-4.9); Carbon Dioxide 27 mmol/L (22-29); Chloride 101 mmol/L (98-107); Creatinine Clr Calc Pharmacy 49.8999; Globulin 3.5 g/dL (1.3-4.6); Glucose 160 mg/dL (65-115); Osmolality Calculated 299 mOsm/kg (285-295); Potassium 3.8 mmol/L (3.5-5.1); Sodium 140 mmol/L (136-145); Total Bilirubin 0.4 mg/dL (0.15-1.2); Total Protein 6.4 g/dL (6.6-8.7)
[2024-07-23 15:49] LABS: Glucose Point of Care 145 mg/dL (70-110)
--- NOTE | 2024-07-23 16:54 | PM.PN ---
Subjective Subjective: Daughter is present at the bedside. reports that he is still feeling a little better, but has lost his taste and smell. Still a little short of breath at times, but overall feels his breathing has improved, and he has not required his oxygen at times. Nursing reports that his PTT has been elevated above goal. Medications: Reviewed: Yes Vitals/I&O/Wt Last Vital Signs Temp 97.5 F L 07/23/24 16:00 Pulse 90 07/23/24 16:00 Resp 16 07/23/24 16:00 BP 121/78 07/23/24 16:00 Pulse Ox 90 07/23/24 16:00 O2 Del Method Room Air 07/23/24 16:00 O2 Flow Rate 1 07/23/24 08:12 07/23/24 07/23/24 07/23/24 06:59 14:59 22:59 Intake Total 120 / 937.833 360 / 360 175.467 / 535.467 Output Total 900 / 2650 425 / 425 Balance -780 / -1712.167 -65 / -65 175.467 / 110.467 Weight last 48 hrs Weight 183 lb 8 oz Weight 184 lb 9.6 oz Weight 177 lb 4.8 oz Physical Exam Narrative: General: Cooperative patient in no apparent distress. Well developed. HEENT: Normocephalic, Atraumatic. External ears normal. Nasal passages patent without drainage. MMM. Heart: Irregularly irregular with normal heart rate. Resp: Bibasilar rales. No wheezes or rhonchi. Abd: Soft, non-tender. Non-distended. Extremities: Right hemiparesis. Skin: No rash or lesions on exposed areas. Neuro: Right hemiparesis of the upper and lower extremity. Apraxic speech. Urinary Catheter Management: Baum: Cath Placed During This Visit: yes Reason for Continuing Indwelling Catheter: Acute Urinary Retention or Obstruction Urinary Catheter Date of Insertion: 07/22/24 Urinary Catheter Time of Insertion: 01:24 Data 07/23/24 13:07 07/23/24 13:07 Micro: Microbiology 07/21/24 19:25 Urine Culture - Preliminary Urine,Clean Catch 07/21/24 19:29 Blood Culture - Preliminary Blood NEGATIVE TO DATE 07/21/24 19:24 Blood Culture - Preliminary Blood NEGATIVE TO DATE A&P Assessment and plan (1) Acute hypoxic respiratory failure: (2) Acute exacerbation of chronic obstructive pulmonary disease: (3) Pneumonia due to COVID-19 virus: (4) New onset atrial fibrillation: (5) Coronary artery disease: Qualifiers: Associated angina: without angina Coronary Disease-Associated Artery/Lesion type: bypass graft [place] vs. 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 Positive for COVID-19. Currently on remdesivir, dexamethasone. Started on cefepime upon admission for UTI and concern for underlying bacterial pneumonia. Currently denies urinary symptoms. Overnight patient did have a labile PTT. His level did increase to well over 250. Heparin was discontinued at that time. [id number] and has bled scores were calculated today. [id number] showed an elevated risk of stroke at 9.7, in addition to Has-bled score of 4 (high risk of bleeding). Patient has had multiple falls at home, some of which resulted in contusions tot he head. I did call and discussed this with his daughter today. At this time, will hold on anticoagulation. I will continue his Plavix and aspirin. His daughter will discuss with her brother, and the attending physician tomorrow to decide on a long-term plan for anticoagulation, or to hold off. Continue DuoNebs, O2 protocol, RAAT. Urine culture growing Proteus susceptible to current antibiotics. Blood cultures currently negative to date. Echocardiogram was obtained. EF was 55%. He does have a severely thickened mitral valve, with mild to moderate regurgitation. Bioprosthetic aortic valve was redemonstrated. No pericardial effusion. Continue home medications for other chronic illnesses. Will have physical therapy evaluate and treat. Discussed discharge disposition. He is open to going to SNF for a couple of weeks for rehab following this hospitalization. Will have manager social services discussed with patient and family this week. Code Status: DNR/DNI IVF: None DVT PPx: SCD's. Hold on anticoagulation due to elevated bleeding risk. GI PPx: None ABx: Remdesivir, cefepime Diet: Cardiac Discharge plan: Home when appropriate Attestations Medical Necessity Statement*: Patient requires hospitalization, inpatient, greater than 2 minutes, for acute hypoxic respiratory failure secondary COVID-19 pneumonia, COPD CHF, UTI, new onset A-fib Coding Level of Care Code Acute Code for Chg Fwd Moderate MDM includes number and complexity of problems actively addressed during encounter, amount and/or complexity of data reviewed/ordered and described risk of complication, morbidity or mortality of management as documented Diagnoses Acute hypoxic respiratory failure J96.01 Acute exacerbation of chronic obstructive pulmonary disease J44.1 Pneumonia due to COVID-19 virus U07.1; J12.82 New onset atrial fibrillation I48.91 Coronary artery disease involving coronary bypass graft of [place] heart without angina pectoris I25.810 Associated angina: without angina Coronary Disease-Associated Artery/Lesion type: bypass graft [place] vs. transplanted heart: [place] heart Type 2 diabetes mellitus without complication, without long-term current use of insulin E11.9 Diabetes mellitus complication status: without complication Diabetes mellitus penitentiary insulin use: without petroleum terminal plant operator use Acute cystitis with hematuria N30.01 Hematuria presence: with hematuria Urinary tract infection type: acute cystitis CHF exacerbation I50.9
[2024-07-23] MEDS: remdesivir 100 MG in sodium chloride 0.9% (100 ml) 80 ML IV (17:51)
[2024-07-23] MEDS: cefepime 1,000 MG in sodium chloride 0.9% (plus) 50 ML 100 MG IV (20:46)
[2024-07-23 21:03] LABS: Glucose Point of Care 134 mg/dL (70-110)
[2024-07-23] MEDS: dexamethasone 10 mg/mL INJ 6 MG IVP (23:25)
[2024-07-24] VITALS (12 sets, daily range): BP systolic 102–129; BP diastolic 65–78; PULSE 81–104; RESP 16–20; TEMP 36.4–36.8; O2SAT 90–94
[2024-07-24] MEDS: ipratropium-albuterol 3 mL Neb INHALATION ×6 (00:17→19:57)
[2024-07-24 05:11] LABS: Basophils % 0.1 %; Hematocrit 32.8 % (37-53); Lymphocytes # 0.8 10^3/uL (0.8-4.8); Mean Corpuscular HGB Conc 30.8 g/dL (30-55); Mean Corpuscular Hemoglobin 23.8 pg (27-33); Mean Corpuscular Volume 77.2 fl (82-101); Monocytes # 0.4 10^3/uL (0.2-0.9); Neutrophils # 10.69 10^3/uL (1.8-7.7); Neutrophils % 89.5 %; Nucleated Red Blood Cells % 0 %; Platelet Count 248 10^3/cmm (157-399); Red Blood Count 4.25 10^6/uL (3.85-5.65); Red Cell Distribution Width 18.1 % (12.1-15.1); White Blood Count 11.94 10^3/uL (3.29-11.43)
[2024-07-24 05:38] LABS: Alanine Aminotransferase 14 U/L (0-41); Alkaline Phosphatase 122 U/L (40-130); Anion Gap 14.9 (5-19); Aspartate Amino Transferase 21 U/L (0-40); Blood Urea Nitrogen 33 mg/dL (8-23); Calcium 8.2 mg/dL (8.5-10.5); Carbon Dioxide 26 mmol/L (22-29); Chloride 100 mmol/L (98-107); Creatinine Clr Calc Pharmacy 53.6392; Ferritin 104 ng/mL (30-400); Globulin 3.4 g/dL (1.3-4.6); Glucose 178 mg/dL (65-115); Iron 25 ug/dL (59-158); Osmolality Calculated 296 mOsm/kg (285-295); Potassium 3.9 mmol/L (3.5-5.1); Sodium 137 mmol/L (136-145); Total Bilirubin 0.4 mg/dL (0.15-1.2); Total Protein 6.4 g/dL (6.6-8.7)
[2024-07-24 05:54] LABS: Folate Level 4.1 ng/mL (4.5-32.2); Vitamin B12 457 pg/mL (232-1245)
[2024-07-24 06:25] LABS: Glucose Point of Care 169 mg/dL (70-110)
[2024-07-24] MEDS: budesonide 0.5 mg/2 mL Neb INHALATION ×2 (08:40→19:57)
[2024-07-24] MEDS: tamsulosin 0.4 mg Capsule PO (09:19)
[2024-07-24] MEDS: insulin lispro 100 unit/1 mL SUBCUT ×2 (09:19→12:36)
[2024-07-24] MEDS: clopidogrel 75 mg Tablet PO (09:19)
[2024-07-24] MEDS: carvedilol 25 mg Tablet PO ×2 (09:19→17:50)
[2024-07-24] MEDS: atorvastatin 40 mg Tablet 80 MG PO (09:19)
[2024-07-24] MEDS: aspirin 81 mg EC Tablet PO (09:19)
[2024-07-24] MEDS: sertraline 50 mg Tablet PO (09:19)
[2024-07-24 11:39] LABS: Glucose Point of Care 172 mg/dL (70-110)
--- NOTE | 2024-07-24 11:57 | PM.PN ---
Subjective Subjective: PT evaluation pending today Patient is stating that he is feeling slightly better He is off oxygen Afebrile Vitals/I&O/Wt Last Vital Signs Temp 98.2 F 07/24/24 11:35 Pulse 89 07/24/24 11:35 Resp 16 07/24/24 11:35 BP 113/71 07/24/24 11:35 Pulse Ox 91 07/24/24 11:35 O2 Del Method Room Air 07/24/24 11:35 O2 Flow Rate 0.5 07/24/24 08:40 07/23/24 07/24/24 07/24/24 22:59 06:59 14:59 Intake Total 565.467 / 925.467 358 / 358 Output Total 575 / 1000 150 / 1150 Balance -9.533 / -74.533 -150 / -224.533 358 / 358 Weight last 48 hrs Weight 80.513 kg Weight 83.234 kg Physical Exam Narrative: Euvolemic Afebrile Heart rate within normal range Hemodynamic stable Currently on room air Nonfocal neuroexam GCS 15 No audible stridor or wheezing Urinary Catheter Management: Baum: Cath Placed During This Visit: yes Reason for Continuing Indwelling Catheter: Acute Urinary Retention or Obstruction Urinary Catheter Date of Insertion: 07/22/24 Urinary Catheter Time of Insertion: 01:24 Data 07/24/24 05:04 07/24/24 05:04 Micro: Microbiology 07/21/24 19:25 Urine Culture - Final Urine,Clean Catch A&P Assessment and plan (1) Acute hypoxic respiratory failure: (2) Acute exacerbation of chronic obstructive pulmonary disease: (3) Pneumonia due to COVID-19 virus: (4) New onset atrial fibrillation: (5) Coronary artery disease: Qualifiers: Coronary Disease-Associated Artery/Lesion type: bypass graft [place] vs. transplanted heart: [place] heart Associated angina: without angina Qualified Code(s): I25.810 - Atherosclerosis of coronary artery bypass graft(s) without angina pectoris (6) Type 2 diabetes mellitus: Qualifiers: Diabetes mellitus penitentiary insulin use: without penitentiary use Diabetes mellitus complication status: without complication Qualified Code(s): E11.9 - Type 2 diabetes mellitus without complications (7) UTI (urinary tract infection): Qualifiers: Urinary tract infection type: acute cystitis Hematuria presence: with hematuria Qualified Code(s): N30.01 - Acute cystitis with hematuria (8) CHF exacerbation: Plan COVID-19 pneumonia Patient is afebrile Doing well I will discontinue IV antibiotics switch to p.o. regimen discontinue steroids Continue physical therapy A-fib without RVR Patient and family both decided against Eliquis and wanted to continue with antiplatelet therapy for now [id number] and has bled score has been discussed with the patient and family Discontinue Protonix and steroids Currently patient doing well on room air SNF versus home health DNR/DNI Cardiac diet Attestations Medical Necessity Statement*: Continue medical management Diagnoses Acute hypoxic respiratory failure J96.01 Acute exacerbation of chronic obstructive pulmonary disease J44.1 Pneumonia due to COVID-19 virus U07.1; J12.82 New onset atrial fibrillation I48.91 Coronary artery disease involving coronary bypass graft of [place] heart without angina pectoris I25.810 Coronary Disease-Associated Artery/Lesion type: bypass graft [place] vs. transplanted heart: [place] heart Associated angina: without angina Type 2 diabetes mellitus without complication, without long-term current use of insulin E11.9 Diabetes mellitus penitentiary insulin use: without rodent exterminator use Diabetes mellitus complication status: without complication Acute cystitis with hematuria N30.01 Urinary tract infection type: acute cystitis Hematuria presence: with hematuria CHF exacerbation I50.9
--- NOTE | 2024-07-24 12:33 | PC.SOCIAL ---
IMM Update pg 2 of IMM updated and reviewed w/ patient. Copy provided and copy dated, initialed and placed in chart.
[2024-07-24 15:59] LABS: Methicillin-Resist S.aureu PCR NOT DETECTED (NOT DETECTED)
[2024-07-24] MEDS: doxycycline 100 mg Tablet PO (17:50)
[2024-07-24] MEDS: remdesivir 100 MG in sodium chloride 0.9% (100 ml) 80 ML IV (17:51)
[2024-07-24 20:16] LABS: Glucose Point of Care 137 mg/dL (70-110)
[2024-07-24 21:18] LABS: Glucose Point of Care 172 mg/dL (70-110)
[2024-07-25] VITALS (12 sets, daily range): BP systolic 108–131; BP diastolic 64–82; PULSE 74–119; RESP 16–20; TEMP 36.4–36.6; O2SAT 90–95
[2024-07-25] MEDS: ipratropium-albuterol 3 mL Neb INHALATION ×6 (00:39→21:00)
[2024-07-25 04:32] LABS: Basophils % 0.1 %; Hematocrit 37.5 % (37-53); Lymphocytes # 1.3 10^3/uL (0.8-4.8); Lymphocytes % 9.8 %; Mean Corpuscular HGB Conc 30.1 g/dL (30-55); Mean Corpuscular Hemoglobin 24.2 pg (27-33); Mean Corpuscular Volume 80.5 fl (82-101); Mean Platelet Volume 10.5 fL (7.4-10.4); Monocytes # 1.1 10^3/uL (0.2-0.9); Monocytes % 8.1 %; Neutrophils # 10.67 10^3/uL (1.8-7.7); Neutrophils % 81.5 %; Nucleated Red Blood Cells % 0 %; Platelet Count 262 10^3/cmm (157-399); Red Blood Count 4.66 10^6/uL (3.85-5.65); Red Cell Distribution Width 18.6 % (12.1-15.1); White Blood Count 13.09 10^3/uL (3.29-11.43)
[2024-07-25 04:52] LABS: Anion Gap 14.8 (5-19); Blood Urea Nitrogen 32 mg/dL (8-23); Calcium 8.2 mg/dL (8.5-10.5); Carbon Dioxide 26 mmol/L (22-29); Chloride 99 mmol/L (98-107); Creatinine Clr Calc Pharmacy 53.6392; Glucose 146 mg/dL (65-115); Osmolality Calculated 292 mOsm/kg (285-295); Potassium 3.8 mmol/L (3.5-5.1); Sodium 136 mmol/L (136-145)
[2024-07-25 06:08] LABS: Glucose Point of Care 131 mg/dL (70-110)
[2024-07-25] MEDS: budesonide 0.5 mg/2 mL Neb INHALATION ×2 (08:52→21:00)
[2024-07-25] MEDS: atorvastatin 40 mg Tablet 80 MG PO (09:02)
[2024-07-25] MEDS: sertraline 50 mg Tablet PO (09:02)
[2024-07-25] MEDS: carvedilol 25 mg Tablet PO ×2 (09:02→16:54)
[2024-07-25] MEDS: tamsulosin 0.4 mg Capsule PO (09:02)
[2024-07-25] MEDS: doxycycline 100 mg Tablet PO ×2 (09:02→16:54)
[2024-07-25] MEDS: clopidogrel 75 mg Tablet PO (09:02)
[2024-07-25] MEDS: aspirin 81 mg EC Tablet PO (09:02)
--- NOTE | 2024-07-25 11:23 | PM.PN ---
Subjective Subjective: No overnight events Awaiting placement Vitals/I&O/Wt Last Vital Signs Temp 97.6 F 07/25/24 07:45 Pulse 91 07/25/24 08:00 Resp 18 07/25/24 08:00 BP 120/76 07/25/24 07:45 Pulse Ox 92 07/25/24 08:00 O2 Del Method Room Air 07/25/24 08:00 O2 Flow Rate 0.5 07/24/24 08:40 07/24/24 07/25/24 07/25/24 22:59 06:59 14:59 Intake Total 100 / 578 360 / 360 Output Total 1000 / 1000 Balance 100 / 578 -1000 / -422 360 / 360 Weight last 48 hrs Weight 83.779 kg Weight 80.513 kg Physical Exam Narrative: Hemodynamic stable Currently No audible stridor or wheezing Pleasant cooperative euvolemic Multiple bruises scratches on lower extremity Daughter at the bedside S1, S2 Urinary Catheter Management: Baum: Cath Placed During This Visit: yes Reason for Continuing Indwelling Catheter: Other Urinary Catheter Date of Insertion: 07/22/24 Urinary Catheter Time of Insertion: : Data 07/25/24 04:23 07/25/24 04:23 Micro: Microbiology 07/21/24 19:25 Urine Culture - Final Urine,Clean Catch A&P Assessment and plan (1) Acute hypoxic respiratory failure: (2) Acute exacerbation of chronic obstructive pulmonary disease: (3) Pneumonia due to COVID-19 virus: (4) New onset atrial fibrillation: (5) Coronary artery disease: Qualifiers: Coronary Disease-Associated Artery/Lesion type: bypass graft [place] vs. transplanted heart: [place] heart Associated angina: without angina Qualified Code(s): I25.810 - Atherosclerosis of coronary artery bypass graft(s) without angina pectoris (6) Type 2 diabetes mellitus: Qualifiers: Diabetes mellitus director long term care insulin use: without mcc use Diabetes mellitus complication status: without complication Qualified Code(s): E11.9 - Type 2 diabetes mellitus without complications (7) UTI (urinary tract infection): Qualifiers: Urinary tract infection type: acute cystitis Hematuria presence: with hematuria Qualified Code(s): N30.01 - Acute cystitis with hematuria (8) CHF exacerbation: Plan Awaiting placement Discontinue remdesivir and Decadron For A-fib he will need Coreg and high-dose aspirin at discharge Patient family decided against Eliquis at this point DNR/DNI Recurrent falls at home Off oxygen currently doing well on room air Attestations Medical Necessity Statement*: Awaiting placement Coding Level of Care Code Acute Code for [facility] Diagnoses Acute hypoxic respiratory failure J96.01 Acute exacerbation of chronic obstructive pulmonary disease J44.1 Pneumonia due to COVID-19 virus U07.1; J12.82 New onset atrial fibrillation I48.91 Coronary artery disease involving coronary bypass graft of [place] heart without angina pectoris I25.810 Coronary Disease-Associated Artery/Lesion type: bypass graft [place] vs. transplanted heart: [place] heart Associated angina: without angina Type 2 diabetes mellitus without complication, without long-term current use of insulin E11.9 Diabetes mellitus director long term care insulin use: without mcc use Diabetes mellitus complication status: without complication Acute cystitis with hematuria N30.01 Urinary tract infection type: acute cystitis Hematuria presence: with hematuria CHF exacerbation I50.9
[2024-07-25 11:59] LABS: Glucose Point of Care 132 mg/dL (70-110)
[2024-07-25 16:23] LABS: Glucose Point of Care 123 mg/dL (70-110)
[2024-07-26] VITALS (9 sets, daily range): BP systolic 110–137; BP diastolic 74–91; PULSE 80–108; RESP 16–24; TEMP 36.4–36.6; O2SAT 92–95
[2024-07-26] MEDS: ipratropium-albuterol 3 mL Neb INHALATION ×4 (01:35→11:13)
[2024-07-26 06:21] LABS: Glucose Point of Care 103 mg/dL (70-110)
[2024-07-26] MEDS: budesonide 0.5 mg/2 mL Neb INHALATION (08:14)
[2024-07-26] MEDS: aspirin 81 mg EC Tablet PO (09:13)
[2024-07-26] MEDS: atorvastatin 40 mg Tablet 80 MG PO (09:13)
[2024-07-26] MEDS: carvedilol 25 mg Tablet PO (09:14)
[2024-07-26] MEDS: sertraline 50 mg Tablet PO (09:14)
[2024-07-26] MEDS: clopidogrel 75 mg Tablet PO (09:14)
[2024-07-26] MEDS: doxycycline 100 mg Tablet PO (09:14)
[2024-07-26] MEDS: tamsulosin 0.4 mg Capsule PO (09:14)
--- NOTE | 2024-07-26 09:53 | PC.SOCIAL ---
IMM Update pg 2 of IMM updated and reviewed w/ patient. Copy provided and copy dated, initialed and placed in chart.
[2024-07-26 11:34] LABS: Glucose Point of Care 127 mg/dL (70-110)
--- NOTE | 2024-07-26 11:43 | P.DS_ITS ---
Discharge Providers Date of Admission: 07/21/24 21:34 Date of Discharge: July 25, 2024 Attending Provider at Admission: Marcos Aguirre MD Attending Provider at Discharge: Ewa Ramírez MD Primary Care Provider: Faustino Morales DO Diagnoses at Discharge Discharge Diagnosis (1) Acute hypoxic respiratory failure: Status: Acute (2) Acute exacerbation of chronic obstructive pulmonary disease: Status: Acute (3) Pneumonia due to COVID-19 virus: Status: Acute (4) New onset atrial fibrillation: Status: Acute (5) Coronary artery disease: Status: Acute Qualifiers: Associated angina: without angina Coronary Disease-Associated Artery/Lesion type: bypass graft [place] vs. transplanted heart: [place] heart Qualified Code(s): I25.810 - Atherosclerosis of coronary artery bypass graft(s) without angina pectoris (6) Type 2 diabetes mellitus: Status: Chronic Qualifiers: Diabetes mellitus complication status: without complication Diabetes mellitus snf insulin use: without snf use Qualified Code(s): E11.9 - Type 2 diabetes mellitus without complications (7) UTI (urinary tract infection): Status: Acute Qualifiers: Hematuria presence: with hematuria Urinary tract infection type: acute cystitis Qualified Code(s): N30.01 - Acute cystitis with hematuria (8) CHF exacerbation: Status: Acute Reason for Visit Reason for Visit: RESP. DISTRESS Hospital Course Hospital Course Robby Haskins is a 84 year old male history of COPD, CAD status post CABG, history of aortic valve replacement, history of rheumatoid arthritis, type 2 diabetes mellitus, who presents to [facility] due to weakness, fatigue, shortness of breath, cough. Patient was admitted for management evaluation of COVID-19 pneumonia, he was put on Decadron remdesivir, we were able to wean him off oxygen from 3 L down to room air Patient remained afebrile , Cultures remained negative, echo showed preserved distal fraction During hospitalization patient was diagnosed with A-fib with RVR, new onset, CTA chest rule out PE, patient and family both decided against Eliquis because he is at risk of multiple falls, Wilmer Vascor is 5, has bled score is 4. Patient will be discharged to a nursing facility, he will get high-dose aspirin Physical Exam Narrative: Awake and alert Off room air Doing well no audible stridor or wheezing Urinary Catheter Management: Baum: Cath Placed During This Visit: yes Reason for Continuing Indwelling Catheter: Other Urinary Catheter Date of Insertion: 07/22/24 Urinary Catheter Time of Insertion: 01:24 Discharge Data Studies Completed and Pending Completed Studies During Hospitalization Category Date Time Status CT angio chest PE protcl [id number] Stat Cat Scan 07/21/24 22:00 Completed XR chest 1V portable [id number] Stat Exams 07/21/24 19:14 [place] [id number] Stat Ultrasound 07/22/24 22:00 Completed CV. echo complete* [id number] Stat Ultrasound 07/22/24 22:10 Completed Pending at discharge Category Date Time Status Blood Culture Stat Lab 07/21/24 19:29 Results Sputum Culture and Gram Stain Stat Lab 07/21/24 22:00 Uncollected Radiology Impressions Chest X-Ray 07/21/24 19:14 IMPRESSION: Stable appearance of pulmonary reticular opacities. No acute superimposed airspace disease. No features of heart failure. Chest CTA 07/21/24 22:00 IMPRESSION: 1. No findings of acute pulmonary embolism. No evidence of acute aortic dissection. 2. There are changes of acute on chronic bronchitis. No airspace disease. In particular, the characteristic ground-glass infiltrates of COVID pneumonia are not currently present. 3. Mildly enlarged subcarinal lymph node noted, significance unclear. Correlate with any available prior imaging. Alternatively, consider follow-up exam in 3 months to confirm stability or regression. Venous Duplex 07/22/24 22:00 IMPRESSION: 1. No sonographic evidence of deep venous thrombosis in either lower extremity. Laboratory Results WBC 13.09 10^3/uL (3.29-11.43) H 07/25/24 04:23 RBC 4.66 10^6/uL (3.85-5.65) 07/25/24 04:23 Hgb 11.30 g/dL (11.27-16.99) 07/25/24 04:23 Hct 37.5 % (37-53) 07/25/24 04:23 MCV 80.5 fl (82-101) L 07/25/24 04:23 MCH 24.2 pg (27-33) L 07/25/24 04:23 MCHC 30.1 g/dL (30-55) 07/25/24 04:23 RDW 18.6 % (12.1-15.1) H 07/25/24 04:23 Plt Count 262 10^3/cmm (157-399) 07/25/24 04:23 MPV 10.5 fL (7.4-10.4) H 07/25/24 04:23 Neut % (Auto) 81.5 % 07/25/24 04:23 Lymph % (Auto) 9.8 % 07/25/24 04:23 [place] % (Auto) 8.1 % 07/25/24 04:23 Eos % (Auto) 0.0 % 07/25/24 04:23 Baso % (Auto) 0.1 % 07/25/24 04:23 Neut # (Auto) 10.67 10^3/uL (1.8-7.7) H 07/25/24 04:23 Lymph # (Auto) 1.3 10^3/uL (0.8-4.8) 07/25/24 04:23 [place] # (Auto) 1.1 10^3/uL (0.2-0.9) H 07/25/24 04:23 Eos # (Auto) 0.0 10^3/uL (0.0-0.8) 07/25/24 04:23 Baso # (Auto) 0.0 10^3/uL (0.0-0.1) 07/25/24 04:23 Nucleated RBC % (auto) 0 % 07/25/24 04:23 Nucleated RBCs # 0.0 /100WBC 07/25/24 04:23 PT 14.90 SECONDS (12.1-14.9) 07/21/24 19:24 INR 1.13 (0.8-1.2) 07/21/24 19:24 APTT 193.7 SECONDS (23.9-36.7) H* D 07/23/24 08:43 D-Dimer 1.59 ug/mLFEU (0-0.59) H 07/21/24 19:24 Specimen Type Arterial 07/21/24 21:24 Sample Site Radial, right 07/21/24 21:24 ABG pH 7.41 (7.35-7.45) 07/21/24 21:24 ABG pCO2 43.8 mmHg (35-45) 07/21/24 21:24 ABG pO2 54.6 mmHg (80.0-100.0) L 07/21/24 21:24 ABG HCO3 27.9 mmol/L (22-26) H 07/21/24 21:24 ABG O2 Saturation 90.9 07/21/24 21:24 ABG Base Excess 2.8 mmol/L (-2.0-2.0) H 07/21/24 21:24 Fernando Test Pos 07/21/24 21:24 A-a O2 Gradient 5.5 mmHg (5-10) 07/21/24 21:24 Hematocrit 33.6 % (42-52) L 07/21/24 21:24 Hgb O2 Saturation 89.3 % (95-100) L 07/21/24 21:24 Carboxyhemoglobin 1.4 %THgb (0.4-20.1) 07/21/24 21:24 Methemoglobin 0.2 % (0.4-1.5) L 07/21/24 21:24 Total Hemoglobin 11.0 g/dL (14-18) L 07/21/24 21:24 Sodium 143.0 mmol/L (131-143) 07/21/24 21:24 Potassium 4.2 mmol/L (3.5-5.0) 07/21/24 21:24 Glucose 115.0 mg/dL (70-115) 07/21/24 21:24 Ionized Calcium 1.2 mmol/L (1.1-1.4) 07/21/24 21:24 O2 Delivery Device Nc 07/21/24 21:24 O2 Liters/Min 2.0 % 07/21/24 21:24 Group Chief Operator ID Cl 07/21/24 21:24 Sodium 136 mmol/L (136-145) 07/25/24 04:23 Potassium 3.8 mmol/L (3.5-5.1) 07/25/24 04:23 Chloride 99 mmol/L (98-107) 07/25/24 04:23 Carbon Dioxide 26 mmol/L (22-29) 07/25/24 04:23 Anion Gap 14.8 (5-19) 07/25/24 04:23 BUN 32 mg/dL (8-23) H 07/25/24 04:23 Creatinine 1.1 mg/dL (0.7-1.2) 07/25/24 04:23 GFR Calculation Not Reportable 07/25/24 04:23 Glucose 146 mg/dL (65-115) H 07/25/24 04:23 POC Glucose 131 mg/dL (70-110) H 07/25/24 06:03 Estimat Average Glucose 137 07/21/24 19:24 Hemoglobin A1c 6.4 % (4.0-6.0) H 07/21/24 19:24 Calculated Osmolality 292 mOsm/kg (285-295) 07/25/24 04:23 Lactic Acid 0.8 mmol/L (0.5-2.2) 07/21/24 22:13 Calcium 8.2 mg/dL (8.5-10.5) L 07/25/24 04:23 Iron 25 ug/dL (59-158) L 07/24/24 05:04 Ferritin 104 ng/mL (30-400) 07/24/24 05:04 Total Bilirubin 0.4 mg/dL (0.15-1.2) 07/24/24 05:04 AST 21 U/L (0-40) 07/24/24 05:04 ALT 14 U/L (0-41) 07/24/24 05:04 Alkaline Phosphatase 122 U/L (40-130) 07/24/24 05:04 Troponin T Baseline 19 ng/L (0-15) H 07/21/24 19:24 Troponin T 120 Minute 18.06 ng/L (0-15) H 07/21/24 21:07 Delta Troponin T -0.94 ABS# (0-10) L 07/21/24 21:07 Troponin T Hi Sens 6Hr 19.03 ng/L (0-15) H 07/22/24 06:02 Troponin T Hi Sens 6Hr Delta 0.03 ng/L (0-12) 07/22/24 06:02 C-Reactive Protein 44.2 mg/L (0.0-4.9) H 07/23/24 13:07 NT-Pro-B Natriuret Pep 5608 pg/mL (0-450) H 07/21/24 19:24 Total Protein 6.4 g/dL (6.6-8.7) L 07/24/24 05:04 Albumin 3.0 g/dL (3.5-5.2) L 07/24/24 05:04 Globulin 3.4 g/dL (1.3-4.6) 07/24/24 05:04 Triglycerides 101 mg/dL (0-150) 07/21/24 21:07 Cholesterol 81 mg/dL (0-200) 07/21/24 21:07 LDL Cholesterol, Calc 41 mg/dL (50-129) L 07/21/24 21:07 HDL Cholesterol 20 mg/dL (60-100) L 07/21/24 21:07 LDL/HDL Ratio 2.05 RATIO (0.00-3.22) 07/21/24 21:07 Cholesterol/HDL Ratio 4.05 mg/dL (1.0-5.00) 07/21/24 21:07 Vitamin B12 457 pg/mL (232-1245) 07/24/24 05:04 Folate 4.1 ng/mL (4.5-32.2) L 07/24/24 05:04 TSH 1.57 uIU/mL (0.27-4.20) 07/21/24 21:07 Urine Color Yellow (Yellow) 07/21/24 19:25 Urine Appearance Clear (CLEAR) 07/21/24 19:25 Urine pH 5.5 (5-7) 07/21/24 19:25 Ur Specific [place] 1.016 (1.005-1.030) 07/21/24 19:25 Urine Protein 2+ (Negative) H 07/21/24 19:25 Urine Glucose (UA) Norm (Normal) 07/21/24 19:25 Urine Ketones Trace (Negative) H 07/21/24 19:25 Urine Blood 1+ (Negative) H 07/21/24 19:25 Urine Nitrate Negative (Negative) 07/21/24 19:25 Urine Bilirubin Neg (Negative) 07/21/24 19:25 Urine Urobilinogen 1.0 mg/dL (Negative) 07/21/24 19:25 Ur Leukocyte Esterase 2+ (Negative) H 07/21/24 19:25 Urine RBC 0-4 /hpf (0-2) H 07/21/24 19:25 Urine WBC 51-100 /hpf (0-5) H 07/21/24 19:25 Ur Renal Epithelial Cell N /hpf 07/21/24 19:25 Amorphous Sediment Not Reportable 07/21/24 19:25 Hyaline Casts 13.63 /lpf 07/21/24 19:25 Coronavirus (PCR) Positive (Negative) A 07/21/24 19:25 Influenza A (PCR) Negative (Negative) 07/21/24 19:25 Influenza Type B (PCR) Negative (Negative) 07/21/24 19:25 RSV (PCR) Negative (Negative) 07/21/24 19:25 MRSA (PCR) Not detected (NOT DETECTED) 07/22/24 01:15 Vitals Last Vital Signs Temp 97.6 F 07/25/24 07:45 Pulse 91 07/25/24 08:00 Resp 18 07/25/24 08:00 BP 120/76 07/25/24 07:45 Pulse Ox 92 07/25/24 08:00 O2 Del Method Room Air 07/25/24 08:00 O2 Flow Rate 0.5 07/24/24 08:40 Discharge Plan Discharge Patient Disposition: Xfer SNF Condition: Stable Prescriptions: New omeprazole 20 mg tablet,delayed release (DR/EC) 20 mg PO DAILY Qty: 60 0RF metoprolol tartrate 100 mg tablet 100 mg PO BID Qty: 60 5RF doxycycline monohydrate 100 mg Tablet 100 mg PO BID Qty: 6 0RF Continued amlodipine 10 mg tablet 10 mg PO DAILY Qty: 90 1RF sertraline 50 mg tablet See Rx Instructions .ROUTE .COMPLEX Qty: 90 1RF Dose Instruction: TAKE ONE TABLET BY MOUTH EVERY DAY Rx Instructions: TAKE ONE TABLET BY MOUTH EVERY DAY tamsulosin 0.4 mg capsule 0.4 mg PO DAILY Qty: 90 1RF albuterol sulfate 90 mcg/actuation HFA aerosol inhaler See Rx Instructions .ROUTE .COMPLEX Qty: 8.5 0RF Dose Instruction: INHALE 1 PUFF BY MOUTH EVERY 6 HOURS NEEDED FOR SHORTNESS OF BREATH OR WHEEZING Rx Instructions: INHALE 1 PUFF BY MOUTH EVERY 6 HOURS NEEDED FOR SHORTNESS OF BREATH OR WHEEZING pantoprazole 40 mg tablet,delayed release (DR/EC) See Rx Instructions .ROUTE .COMPLEX Qty: 90 0RF Dose Instruction: TAKE 1 TABLET BY MOUTH EVERY DAY Rx Instructions: TAKE 1 TABLET BY MOUTH EVERY DAY cyclobenzaprine 10 mg tablet 10 mg PO Q8H Qty: 14 0RF Changed aspirin 81 mg tablet,delayed release (DR/EC) 162 mg PO DAILY Qty: 90 1RF Held furosemide 40 mg tablet 40 mg PO DAILY Qty: 90 1RF Hold Instructions: Resume on 08/01/24. Patient Comments: Took 20mg tablet yesterday 07/21 potassium chloride 10 mEq capsule, extended release 10 meq PO DAILY Qty: 90 1RF Hold Instructions: Resume on 08/01/24. Discontinued rosuvastatin 40 mg tablet See Rx Instructions .ROUTE .COMPLEX Qty: 90 0RF Dose Instruction: TAKE 1 TABLET BY MOUTH DAILY Rx Instructions: TAKE 1 TABLET BY MOUTH DAILY lisinopril 20 mg tablet See Rx Instructions .ROUTE .COMPLEX Qty: 180 0RF Dose Instruction: TAKE 1 TABLET BY MOUTH TWICE DAILY Rx Instructions: TAKE 1 TABLET BY MOUTH TWICE DAILY carvedilol 25 mg tablet See Rx Instructions .ROUTE .COMPLEX Qty: 180 0RF Dose Instruction: TAKE 1 TABLET BY MOUTH TWICE DAILY Rx Instructions: TAKE 1 TABLET BY MOUTH TWICE DAILY clopidogrel 75 mg tablet See Rx Instructions .ROUTE .COMPLEX Qty: 90 0RF Dose Instruction: TAKE 1 TABLET BY MOUTH EVERY DAY Rx Instructions: TAKE 1 TABLET BY MOUTH EVERY DAY cefdinir 300 mg capsule 300 mg PO BID Qty: 20 0RF Discharge Orders: Discharge Order (Routine); Ordered 07/26/24 Ordered By: Ewa Ramírez Referrals: Faustino Morales DO [Primary Care Provider] - Patient Instructions: Opioid Safety Discharge Attestations Time Spent in Discharge Care*: greater than 30 min Quality Metrics Clinical Quality Measures [ No reported AMI, CVA or VTE this stay] Coding Level of Care Code Acute Code for [facility] Diagnoses Acute hypoxic respiratory failure J96.01 Acute exacerbation of chronic obstructive pulmonary disease J44.1 Pneumonia due to COVID-19 virus U07.1; J12.82 New onset atrial fibrillation I48.91 Coronary artery disease involving coronary bypass graft of [place] heart without angina pectoris I25.810 Associated angina: without angina Coronary Disease-Associated Artery/Lesion type: bypass graft [place] vs. transplanted heart: [place] heart Type 2 diabetes mellitus without complication, without long-term current use of insulin E11.9 Diabetes mellitus complication status: without complication Diabetes mellitus snf insulin use: without snf use Acute cystitis with hematuria N30.01 Hematuria presence: with hematuria Urinary tract infection type: acute cystitis CHF exacerbation I50.9
--- NOTE | 2024-07-26 11:43 | PM.PN ---
Subjective Subjective: No significant overnight events Currently on room air Afebrile No need to repeat labs Vitals/I&O/Wt Last Vital Signs Temp 97.6 F 07/26/24 07:21 Pulse 91 07/26/24 11:13 Resp 22 H 07/26/24 11:13 BP 137/91 07/26/24 07:21 Pulse Ox 95 07/26/24 11:13 O2 Del Method Room Air 07/26/24 11:13 O2 Flow Rate 0.5 07/24/24 08:40 07/25/24 07/26/24 07/26/24 22:59 06:59 14:59 Intake Total 760 / 1240 480 / 1720 240 / 240 Output Total 650 / 650 425 / 1075 Balance 110 / 590 55 / 645 240 / 240 Weight last 48 hrs Weight 81.692 kg Weight 83.779 kg Physical Exam Narrative: Awake and alert Euvolemic GCS 15 Mild rhonchi Currently on room air S1, S2 variable Get short of breath on exertion Urinary Catheter Management: Baum: Cath Placed During This Visit: yes Reason for Continuing Indwelling Catheter: Other Urinary Catheter Date of Insertion: 07/22/24 Urinary Catheter Time of Insertion: 01:24 Data 07/25/24 04:23 07/25/24 04:23 A&P Assessment and plan (1) Acute hypoxic respiratory failure: (2) Acute exacerbation of chronic obstructive pulmonary disease: (3) Pneumonia due to COVID-19 virus: (4) New onset atrial fibrillation: (5) Coronary artery disease: Qualifiers: Coronary Disease-Associated Artery/Lesion type: bypass graft [place] vs. transplanted heart: [place] heart Associated angina: without angina Qualified Code(s): I25.810 - Atherosclerosis of coronary artery bypass graft(s) without angina pectoris (6) Type 2 diabetes mellitus: Qualifiers: Diabetes mellitus termite exterminator helper insulin use: without termite exterminator helper use Diabetes mellitus complication status: without complication Qualified Code(s): E11.9 - Type 2 diabetes mellitus without complications (7) UTI (urinary tract infection): Qualifiers: Urinary tract infection type: acute cystitis Hematuria presence: with hematuria Qualified Code(s): N30.01 - Acute cystitis with hematuria (8) CHF exacerbation: Plan Awaiting placement Afebrile, Not requiring oxygen Dyspnea on exertion For A-fib continue AV kendra blocking agent, and high-dose aspirin discharge DNR/DNI Discontinue isolation it has been more than 5 days for COVID-19 Attestations Medical Necessity Statement*: Awaiting placement Diagnoses Acute hypoxic respiratory failure J96.01 Acute exacerbation of chronic obstructive pulmonary disease J44.1 Pneumonia due to COVID-19 virus U07.1; J12.82 New onset atrial fibrillation I48.91 Coronary artery disease involving coronary bypass graft of [place] heart without angina pectoris I25.810 Coronary Disease-Associated Artery/Lesion type: bypass graft [place] vs. transplanted heart: [place] heart Associated angina: without angina Type 2 diabetes mellitus without complication, without long-term current use of insulin E11.9 Diabetes mellitus termite exterminator helper insulin use: without termite exterminator helper use Diabetes mellitus complication status: without complication Acute cystitis with hematuria N30.01 Urinary tract infection type: acute cystitis Hematuria presence: with hematuria CHF exacerbation I50.9
--- NOTE | 2024-07-26 14:15 | PC.NURSE ---
This nurse called report to nursePatricia, at [facility]. All questions addressed at this time.
== END 2024-07-26 14:18 | disposition skilled nursing facility (03) | DRG 177 ==
LOC: ER 21:27 → CSU 22:21 → MEDSURG 22:24
PROVIDERS: Admitting Provider Family Medicine; Emergency Provider Emergency Medicine; PCP Family Medicine; Visit Provider Internal Medicine
DX: U07.1 COVID-19 (principal); I50.33 Acute on chronic diastolic (congestive) heart failure; J12.82 Pneumonia due to coronavirus disease 2019; J96.01 Acute respiratory failure with hypoxia; J44.1 Chronic obstructive pulmonary disease with (acute) exacerbation; I25.810 Atherosclerosis of coronary artery bypass graft(s) without angina pectoris; N30.01 Acute cystitis with hematuria; J44.0 Chronic obstructive pulmonary disease with (acute) lower respiratory infection; I48.91 Unspecified atrial fibrillation; E11.9 Type 2 diabetes mellitus without complications; M06.9 Rheumatoid arthritis, unspecified; S80.811A Abrasion, right lower leg, initial encounter; E78.5 Hyperlipidemia, unspecified; I73.9 Peripheral vascular disease, unspecified; I11.0 Hypertensive heart disease with heart failure; I25.10 Atherosclerotic heart disease of native coronary artery without angina pectoris; Z95.1 Presence of aortocoronary bypass graft; Z79.899 Other long term (current) drug therapy; Z79.82 Long term (current) use of aspirin; Z95.3 Presence of xenogenic heart valve; Z79.02 Long term (current) use of antithrombotics/antiplatelets
CPT/HCPCS: 0241U; 36415; 36416; 36600; 51702; 71045; 71275; 80048; 80051; 80053; 80061; 81001; 81003; 81015; 82330; 82607; 82728; 82746; 82805; 82962; 83036; 83540; 83605; 83880; 84443; 84484; 85025; 85378; 85610; 85730; 86140; 87040; 87077; 87086; 87186; 87641; 93005; 93306; 93970; 94640; 94664; 96365; 96372; 97110; 97116; 97161; 97165; 97530; 97535; 99285; J0248; J0692; J1100; J1644; J1815; J1940; J2470; J7030; J7613; J7626

== ENCOUNTER 2024-07-30 08:04 | Observation (INO) | payer MEDICARE, SELFPAY ==
[2024-07-30] VITALS (18 sets, daily range): BP systolic 96–145; BP diastolic 71–95; PULSE 83–113; RESP 17–22; TEMP 36.7; O2SAT 90–98; BMI 25.7
--- NOTE | 2024-07-30 08:27 | XRR_ITS ---
PROCEDURE INFORMATION: Exam: XR Chest Exam date and time: 07/30/2024 8:32 AM Age: 84 years old Clinical indication: Cough; Prior surgery; Surgery date: 6+ months; Surgery type: Open heart; Additional info: Cough, hypoxia TECHNIQUE: Imaging protocol: Radiologic exam of the chest. Views: 1 view. COMPARISON: CT angio chest PE protcl [id number] 07/21/2024 10:23 PM FINDINGS: Lungs: There are subtle opacities at both lung bases which may reflect small pleural effusions and atelectasis. The lungs are otherwise clear. Suspect trace pleural effusions. Pleural spaces: Suspect trace pleural effusions Heart/Mediastinum: The heart is enlarged. There is sternal wires present from prior cardiac surgery. Bones/joints: Unremarkable. XR/XR chest 1V portable [id number] IMPRESSION: 1. Cardiomegaly. 2. Suspect trace pleural effusions with atelectasis at the lung bases.
--- NOTE | 2024-07-30 08:35 | ECG_ITS ---
[facility] Test Date: 2024-07-30 Pat Name: Robby Haskins Department: Room: Gender: Male Can Runner: : 1940 Requested By: Susi Velasquez Order Number: [id number] Magdalena MD: Sherif Tapia M.D. Measurements Intervals [place] Rate: 94 P: 0 UT: 0 QRS: -45 QRSD: 140 T: 29 QT: 392 QTc: 493 Interpretive Statements ATRIAL FIBRILLATION RIGHT BUNDLE BRANCH BLOCK [120+ ms QRS DURATION, UPRIGHT V1, 40+ ms S IN I/aVL/V4/V5/V6] LEFT ANTERIOR FASCICULAR BLOCK [QRS AXIS <= -45, QR IN I, RS IN II] Compared to ECG 07/22/2024 01:47:11 No significant changes Electronically Signed On 07-30-2024 9:14:45 CDT by Sherif Tapia M.D. [email or web address]
--- NOTE | 2024-07-30 08:49 | ED_ITS ---
HPI - Altered Mental Status 2 General: Chief Complaint: Altered Mental Status Stated Complaint: ams Time Seen by Provider: 07/30/24 08:05 History of Present Illness: This patient is an 84-year-old male presenting with altered mental status from [facility]. He was admitted there a few days ago after being discharged from this facility. He had been admitted here with COVID pneumonia. During that hospitalization he was also diagnosed with atrial fibrillation and cystitis with hematuria. He was discharged on doxycycline which is reported to have completed its course yesterday. halfway staff reported to EMS that he had been hallucinating throughout the night. He normally has been alert and oriented x 4. For me the patient is oriented to place, date, self. He is able to tell me that he was recently in the hospital here. He was not sure why but otherwise was able to provide some history. He does tell me that for the past 2 weeks he has had burning with urination. He denies diarrhea or constipation. He denies vomiting or nausea. He denies chest pain. He does have some shortness of breath and a productive cough. He denies any other complaints today. He does report that he had a stroke several years ago and has problems with headaches and balance difficulty since then. After reviewing his discharge summary he did have some medication changes while in the hospital. He was not started on a blood thinner for his new onset A-fib due to their concern for falling. Related Data Previous Rx's Medication Instructions Recorded amlodipine 10 mg tablet 10 mg PO DAILY #90 tabs 11/19/23 sertraline 50 mg tablet See Rx Instructions .Route 11/19/23 .COMPLEX #90 tabs tamsulosin 0.4 mg capsule 0.4 mg PO DAILY #90 caps 11/19/23 cyclobenzaprine 10 mg tablet 10 mg PO Q8H #14 tabs 12/05/23 albuterol sulfate 90 mcg/actuation See Rx Instructions .Route 05/24/24 aerosol inhaler .COMPLEX #8.5 grams pantoprazole 40 mg tablet,delayed See Rx Instructions .Route 06/19/24 release .COMPLEX #90 tabs furosemide 40 mg tablet 40 mg PO DAILY #90 tabs 07/19/24 potassium chloride 10 mEq 10 meq PO DAILY #90 caps 07/19/24 capsule,extended release aspirin 81 mg tablet,delayed 162 mg (2 x 81 mg) PO DAILY #90 07/25/24 release tabs doxycycline monohydrate 100 mg 100 mg PO BID #6 tabs 07/25/24 tablet omeprazole 20 mg tablet,delayed 20 mg PO DAILY #60 tabs 07/25/24 release lisinopril 5 mg tablet 5 mg PO DAILY #30 tabs 07/26/24 metoprolol tartrate 100 mg tablet 100 mg PO BID #60 tabs 07/26/24 Allergies Allergy/AdvReac Type Severity Reaction Status Date / Time No Known Allergies Allergy Verified 07/30/24 08:20 PFSH ED 2 PFSH: Medical History CHF exacerbation Pneumonia due to COVID-19 virus Acute hypoxic respiratory failure New onset atrial fibrillation Acute on chronic hypoxic respiratory failure COPD with acute exacerbation Urinary tract infection COVID-19 UTI (urinary tract infection) Acute exacerbation of chronic obstructive pulmonary disease Hyperlipidemia Stage 1 mild COPD by GOLD classification Seronegative rheumatoid arthritis 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 Type 2 diabetes mellitus Arthritis Peripheral vascular disease Hypertension Coronary artery disease Surgical History S/P carotid endarterectomy Left-sided S/P CABG (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 Family History Other CAD (coronary artery disease) Stroke Social History Smoking and tobacco/nicotine status: never used tobacco/nicotine Alcohol intake: never Substance/Drug Use: never Housing: House Physical Exam 2 Const: COMMON NORMALS: no acute distress, patient oriented x3 and alert G ENERAL APPEARANCE: cooperative and comfortable HENMT: HEAD & SCALP: normal to inspection FACE & SINUS: normal facial exam Eye: GENERAL EYE: appearance normal, both eyes and all related structures Neck/C-Spine: COMMON NORMALS: supple and no meningeal signs Chest: COMMONS NORMALS: normal inspection of the chest Resp: EFFORT & INSPECTION: Yes able to speak in complete sentences and No respiratory distress AUSCULTATION: diminished lung sounds (Decreased in bilateral bases. I did not appreciate rhonchi or rales) Cardio: COMMON NORMALS: Peripheral pulses 2+ throughout RATE: tachycardic RHYTHM: abnormal rhythm irregularly irregular PERIPHERAL PULSES: Peripheral pulses 2+ throughout OTHER: Peripheral edema in the lower extremities. Left greater than right left is 2+, right is 1+. GI: COMMON NORMALS: Normal to inspection, nondistended, normoactive bowel sounds present and Soft to palpation INSPECTION: Yes normal to inspection AUSCULTATION: Yes normoactive bowel sounds PALPATION: Yes Soft to palpation Back/Pelvis: COMMON NORMALS: thoracic and lumbar spine normal to inspection Extremity: COMMON NORMALS: normal to inspection Neuro: COMMON NORMALS: patient oriented x3, moves all extremities, no focal motor deficits and no sensory deficits noted SENSORIUM/ORIENTATION: Yes alert MENINGEAL SIGNS: Yes no meningeal signs Psych: COMMON NORMALS: mental status grossly normal, cooperative and normal affect Skin: LESIONS: lesion noted (Approximately 1 cm diameter lesion on the left faith area) Eschar with no active bleeding. Sepsis: Focused sepsis exam: No evidence of sepsis at this time. Course 2 Vital Signs: Vital signs: Vital Signs Temperature 98.0 F 07/30/24 08:10 Pulse Rate 99 07/30/24 16:00 Respiratory Rate 20 H 07/30/24 16:00 Blood Pressure 115/86 07/30/24 16:00 Pulse Oximetry 93 07/30/24 16:00 Oxygen Delivery Me thod Room Air 07/30/24 08:10 MDM - Altered Mental Status Medical Decision Making Recent admit for COVID pneumonia - and he also has history of CHF. New onset a fib. He had a negative work up for PE and DVT while hospitalized previously. He has been on doxycycline for a UTI - course completed. Currently UA does not look infected. Patient reported to have had hallucinations - he is oriented and able to provide history today. He also continued to have intermittent confusion and is very sleepy. Reviewed medication list - recent treatments. Discussed with family members and the change is fairly acute - starting mid morning yesterday. Work up does not reveal any findings of infection. Electrolytes are unremarkable. His t bili is elevated - otherwise labs including ammonia are normal. Lab Data 07/30/24 08:56 07/30/24 08:56 Radiology Impressions Chest X-Ray 07/30/24 08:27 IMPRESSION: 1. Cardiomegaly. 2. Suspect trace pleural effusions with atelectasis at the lung bases. Head CT 07/30/24 13:33 IMPRESSION: 1. No acute intracranial abnormality. 2. Moderate chronic white matter microvascular ischemic change. Laboratory Results WBC 11.10 10^3/uL (3.29-11.43) 07/30/24 08:56 RBC 4.71 10^6/uL (3.85-5.65) 07/30/24 08:56 Hgb 11.30 g/dL (11.27-16.99) 07/30/24 08:56 Hct 37.8 % (37-53) 07/30/24 08:56 MCV 80.3 fl (82-101) L 07/30/24 08:56 MCH 24.0 pg (27-33) L 07/30/24 08:56 MCHC 29.9 g/dL (30-55) L 07/30/24 08:56 RDW 18.6 % (12.1-15.1) H 07/30/24 08:56 Plt Count 277 10^3/cmm (157-399) 07/30/24 08:56 MPV 10.3 fL (7.4-10.4) 07/30/24 08:56 Neut % (Auto) 76.9 % 07/30/24 08:56 Lymph % (Auto) 9.3 % 07/30/24 08:56 [place] % (Auto) 10.2 % 07/30/24 08:56 Eos % (Auto) 2.4 % 07/30/24 08:56 Baso % (Auto) 0.3 % 07/30/24 08:56 Neut # (Auto) 8.54 10^3/uL (1.8-7.7) H 07/30/24 08:56 Lymph # (Auto) 1.0 10^3/uL (0.8-4.8) 07/30/24 08:56 [place] # (Auto) 1.1 10^3/uL (0.2-0.9) H 07/30/24 08:56 Eos # (Auto) 0.3 10^3/uL (0.0-0.8) 07/30/24 08:56 Baso # (Auto) 0.0 10^3/uL (0.0-0.1) 07/30/24 08:56 Nucleated RBC % (auto) 0 % 07/30/24 08:56 Nucleated RBCs # 0.0 /100WBC 07/30/24 08:56 Specimen Type Arterial 07/30/24 17:11 Sample Site Radial, right 07/30/24 17:11 ABG pH 7.37 (7.35-7.45) 07/30/24 17:11 ABG pCO2 45.3 mmHg (35-45) H 07/30/24 17:11 ABG pO2 94.7 mmHg (80.0-100.0) 07/30/24 17:11 ABG HCO3 26.2 mmol/L (22-26) H 07/30/24 17:11 ABG Base Excess 0.6 mmol/L (-2.0-2.0) 07/30/24 17:11 Fernando Test Pos 07/30/24 17:11 Hematocrit 32.5 % (42-52) L 07/30/24 17:11 O2 Delivery Device Nc 07/30/24 17:11 O2 Liters/Min 2.0 % 07/30/24 17:11 Cigarette Examiner ID Jeison 07/30/24 17:11 Sodium 140 mmol/L (136-145) 07/30/24 08:56 Potassium 3.9 mmol/L (3.5-5.1) 07/30/24 08:56 Chloride 102 mmol/L (98-107) 07/30/24 08:56 Carbon Dioxide 26 mmol/L (22-29) 07/30/24 08:56 Anion Gap 15.9 (5-19) 07/30/24 08:56 BUN 20 mg/dL (8-23) 07/30/24 08:56 Creatinine 1.0 mg/dL (0.7-1.2) 07/30/24 08:56 GFR Calculation Not Reportable 07/30/24 08:56 Glucose 103 mg/dL (65-115) 07/30/24 08:56 Calculated Osmolality 293 mOsm/kg (285-295) 07/30/24 08:56 Calcium 8.5 mg/dL (8.5-10.5) 07/30/24 08:56 Total Bilirubin 1.8 mg/dL (0.15-1.2) H 07/30/24 08:56 AST 14 U/L (0-40) 07/30/24 08:56 ALT 12 U/L (0-41) 07/30/24 08:56 Alkaline Phosphatase 124 U/L (40-130) 07/30/24 08:56 Ammonia 13 umol/L (16-60) L 07/30/24 14:46 NT-Pro-B Natriuret Pep 6150 pg/mL (0-450) H 07/30/24 08:56 Total Protein 7.2 g/dL (6.6-8.7) 07/30/24 08:56 Albumin 3.4 g/dL (3.5-5.2) L 07/30/24 08:56 Globulin 3.8 g/dL (1.3-4.6) 07/30/24 08:56 TSH 3.85 uIU/mL (0.27-4.20) 07/30/24 08:46 Urine Color Dark yellow (Yellow) A 07/30/24 11:13 Urine Appearance Clear (CLEAR) 07/30/24 11:13 Urine pH 5 (5-7) 07/30/24 11:13 Ur Specific [place] 1.015 (1.005-1.030) 07/30/24 11:13 Urine Protein Trace (Negative) 07/30/24 11:13 Urine Glucose (UA) Norm (Normal) 07/30/24 11:13 Urine Ketones Negative (Negative) 07/30/24 11:13 Urine Blood Neg (Negative) 07/30/24 11:13 Urine Nitrate Negative (Negative) 07/30/24 11:13 Urine Bilirubin 1+ (Negative) H 07/30/24 11:13 Urine Urobilinogen Norm mg/dL (Negative) 07/30/24 11:13 Ur Leukocyte Esterase Negative (Negative) 07/30/24 11:13 Urine RBC None /hpf (0-2) 07/30/24 11:13 Urine WBC 0-4 /hpf (0-5) H 07/30/24 11:13 Ur Squamous Epith Cells None /hpf (0-5) 07/30/24 11:13 Amorphous Sediment 2+ /hpf 07/30/24 11:13 Urine Bacteria Trace /hpf (NONE) 07/30/24 11:13 All radiology interpretation(s) finalized by discharge Discharge Plan Discharge Patient Disposition: Placed in Observation Clinical Impression: Acute encephalopathy, Hyperbilirubinemia, Balance disorder Condition: Stable Prescriptions: No Action amlodipine 10 mg tablet 10 mg PO DAILY Qty: 90 1RF sertraline 50 mg tablet See Rx Instructions .ROUTE .COMPLEX Qty: 90 1RF Dose Instruction: TAKE ONE TABLET BY MOUTH EVERY DAY Rx Instructions: TAKE ONE TABLET BY MOUTH EVERY DAY tamsulosin 0.4 mg capsule 0.4 mg PO DAILY Qty: 90 1RF albuterol sulfate 90 mcg/actuation HFA aerosol inhaler See Rx Instructions .ROUTE .COMPLEX Qty: 8.5 0RF Dose Instruction: INHALE 1 PUFF BY MOUTH EVERY 6 HOURS NEEDED FOR SHORTNESS OF BREATH OR WHEEZING Rx Instructions: INHALE 1 PUFF BY MOUTH EVERY 6 HOURS NEEDED FOR SHORTNESS OF BREATH OR WHEEZING pantoprazole 40 mg tablet,delayed release (DR/EC) See Rx Instructions .ROUTE .COMPLEX Qty: 90 0RF Dose Instruction: TAKE 1 TABLET BY MOUTH EVERY DAY Rx Instructions: TAKE 1 TABLET BY MOUTH EVERY DAY furosemide 40 mg tablet 40 mg PO DAILY Qty: 90 1RF Hold Instructions: Resume on 08/01/24. Patient Comments: Took 20mg tablet yesterday 07/21 potassium chloride 10 mEq capsule, extended release 10 meq PO DAILY Qty: 90 1RF Hold Instructions: Resume on 08/01/24. cyclobenzaprine 10 mg tablet 10 mg PO Q8H Qty: 14 0RF doxycycline monohydrate 100 mg Tablet 100 mg PO BID Qty: 6 0RF aspirin 81 mg tablet,delayed release (DR/EC) 162 mg PO DAILY Qty: 90 1RF omeprazole 20 mg tablet,delayed release (DR/EC) 20 mg PO DAILY Qty: 60 0RF metoprolol tartrate 100 mg tablet 100 mg PO BID Qty: 60 5RF lisinopril 5 mg tablet 5 mg PO DAILY Qty: 30 0RF Referrals: Faustino Morales DO [Primary Care Provider] - Patient Instructions: Altered Mental Status (ED) Coding Level of Care Code ED Fundraising Consultant for Maxim Kim
[2024-07-30 09:02] LABS: Basophils % 0.3 %; Eosinophils # 0.3 10^3/uL (0.0-0.8); Eosinophils % 2.4 %; Hematocrit 37.8 % (37-53); Lymphocytes % 9.3 %; Mean Corpuscular HGB Conc 29.9 g/dL (30-55); Mean Corpuscular Volume 80.3 fl (82-101); Mean Platelet Volume 10.3 fL (7.4-10.4); Monocytes # 1.1 10^3/uL (0.2-0.9); Monocytes % 10.2 %; Neutrophils # 8.54 10^3/uL (1.8-7.7); Neutrophils % 76.9 %; Nucleated Red Blood Cells % 0 %; Platelet Count 277 10^3/cmm (157-399); Red Blood Count 4.71 10^6/uL (3.85-5.65); Red Cell Distribution Width 18.6 % (12.1-15.1)
[2024-07-30 09:28] LABS: Alanine Aminotransferase 12 U/L (0-41); Albumin Level 3.4 g/dL (3.5-5.2); Alkaline Phosphatase 124 U/L (40-130); Anion Gap 15.9 (5-19); Aspartate Amino Transferase 14 U/L (0-40); Blood Urea Nitrogen 20 mg/dL (8-23); Calcium 8.5 mg/dL (8.5-10.5); Carbon Dioxide 26 mmol/L (22-29); Chloride 102 mmol/L (98-107); Globulin 3.8 g/dL (1.3-4.6); Glucose 103 mg/dL (65-115); NT Pro B Type Natriuretic Pept 6150 pg/mL (0-450); Osmolality Calculated 293 mOsm/kg (285-295); Potassium 3.9 mmol/L (3.5-5.1); Sodium 140 mmol/L (136-145); Total Bilirubin 1.8 mg/dL (0.15-1.2); Total Protein 7.2 g/dL (6.6-8.7)
[2024-07-30] MEDS: sodium chloride 0.9% 500 ML 999 ML IV (09:58)
[2024-07-30 11:28] LABS: Add Urine Microscopic? YES; Bilirubin Urine 1+ (Negative); Blood Urine Neg (Negative); Glucose Urine UA Norm (Normal); Ketones Urine Negative (Negative); Leukocyte Esterase Urine Negative (Negative); Nitrate Urine Negative (Negative); Protein Urine Trace (Negative); Specific Gravity, Urine 1.015 (1.005-1.030); Urine Appearance Clear (CLEAR); Urine Color Dark Yellow (Yellow); Urobilinogen Urine Norm (Negative); WBC Urine 0-4 /hpf (0-5); pH Urine 5 (5-7)
[2024-07-30 11:29] LABS: Add Urine Culture? No; Amorphous Sediment Urine 2+ /hpf; Bacteria Urine TRACE /hpf
--- NOTE | 2024-07-30 13:33 | CTR_ITS ---
PROCEDURE INFORMATION: Exam: CT Head Without Contrast Exam date and time: 07/30/2024 1:45 PM Age: 84 years old Clinical indication: Altered mental status/memory loss; Additional info: AMS TECHNIQUE: Imaging protocol: Computed tomography of the head without contrast. Radiation optimization: All CT scans at this facility use at least one of these dose optimization techniques: automated exposure control; mA and/or kV adjustment per patient size (includes targeted exams where dose is matched to clinical indication); or iterative reconstruction. COMPARISON: CT head wo con* [id number] 12/05/2023 4:20 PM RADIATION DOSE METRICS: Total DLP (mGy-cm): 1145.88 FINDINGS: Brain: No acute infarct, hemorrhage, mass, or mass effect. Moderate chronic white matter microvascular ischemic change. Cerebral ventricles: Normal ventricles. No appreciable extra-axial fluid. Paranasal sinuses: Mucosal thickening in the paranasal sinuses. Mastoid air cells: Clear. Orbital cavities: Orbits are unremarkable. Sella is unremarkable. Bones: Unremarkable. Soft tissues: Unremarkable. CT/CT head wo con* [id number] IMPRESSION: 1. No acute intracranial abnormality. 2. Moderate chronic white matter microvascular ischemic change.
[2024-07-30 15:16] LABS: Ammonia 13 umol/L (16-60)
--- NOTE | 2024-07-30 16:01 | USR_ITS ---
PROCEDURE INFORMATION: Exam: US Abdomen, Limited; Right Upper Quadrant Exam date and time: 07/30/2024 5:01 PM Age: 84 years old Clinical indication: Abnormal findings; Abnormal lab test; Other: Elevated bilirubin TECHNIQUE: Imaging protocol: Real time ultrasound of the abdomen with image documentation. Limited exam focused on the right upper quadrant. COMPARISON: US gall bladder [id number] 09/11/2019 2:21 AM FINDINGS: Liver: Normal. No masses. The right hepatic lobe measures 16 cm in length. Gallbladder: Cholelithiasis. Gallbladder wall thickening up to 1 cm. Biliary ducts: Normal. No stones. No dilation. Common bile duct measures 0.4 cm in caliber. Pancreas: Obscured by bowel gas. Right kidney: Normal. No mass. No hydronephrosis. Right kidney measures 13 cm in length. 6.8 x 5.6 x 5.8 cm simple appearing cyst along the upper pole of the right kidney. Aorta: Mid abdominal aorta measures 1.2 cm in caliber. Inferior vena cava: Upper IVC measures 1.9 cm in caliber. Portal venous: Hepatopetal flow in the main portal vein. US/US gall bladder [id number] IMPRESSION: 1. Cholelithiasis with gallbladder wall thickening. No definite pericholecystic fluid. Findings could represent acute cholecystitis in the correct clinical setting. A HIDA scan could be considered for further assessment if warranted. 2. No biliary ductal dilatation. 3. Simple right renal cyst.
--- NOTE | 2024-07-30 17:15 | P.HP_ITS ---
Providers/Chief Complaint 2 Primary Care Provider: Faustino Morales DO Chief Complaint: ams History of Present Illness 84-year-old gentleman recently admitted for management of COVID-19 pneumonia, urinary tract infection, A-fib, not on anticoagulation due to risk of falling/bleeding, discharged 07/26 to SNF for rehabilitation, back in November with left humeral fracture, with overall decline in his functional capacity since that time, worse since COVID. Was brought in for evaluation to ER due to altered mental status, seeing things that are not there, bugs, people, picking things out of thin air. He has not had any further issues with his left arm fracture. He is afebrile without leukocytosis in ER. CMP only with abnormal T. bili at 1.8, unremarkable other liver parameters. Ammonia was checked and is 13. NT-proBNP 6150. Normal EF on TTE July 23. Albumin 3.4. Urine dark, 1+ bilirubin, 0-4 WBC. Trace bacteria. EKG with atrial fibrillation, RBBB, LAFB. Chest x-ray with cardiomegaly. Trace pleural effusions with atelectasis at bases. Head CT with moderate chronic white matter microvascular ischemic change. Review of Systems 2 General: Reports: ROS unobtainable due to mental status Medications/Allergies Home Medications Medication Instructions Recorded Confirmed Last Taken Type amlodipine 10 mg tablet 10 mg PO DAILY #90 tabs 11/19/23 07/22/24 07/21/24 18:00 Rx sertraline 50 mg tablet See Rx Instructions .Route 11/19/23 07/22/24 07/21/24 09:00 Rx .COMPLEX #90 tabs tamsulosin 0.4 mg capsule 0.4 mg PO DAILY #90 caps 11/19/23 07/22/24 07/20/24 18:00 Rx cyclobenzaprine 10 mg tablet 10 mg PO Q8H #14 tabs 12/05/23 07/22/24 Unknown Rx albuterol sulfate 90 mcg/actuation See Rx Instructions .Route 05/24/24 07/22/24 04/15/24 Rx aerosol inhaler .COMPLEX #8.5 grams pantoprazole 40 mg tablet,delayed See Rx Instructions .Route 06/19/24 07/22/24 07/21/24 09:00 Rx release .COMPLEX #90 tabs furosemide 40 mg tablet 40 mg PO DAILY #90 tabs 07/19/24 07/22/24 07/21/24 09:00 Rx potassium chloride 10 mEq 10 meq PO DAILY #90 caps 07/19/24 07/22/24 07/21/24 09:00 Rx capsule,extended release aspirin 81 mg tablet,delayed 162 mg (2 x 81 mg) PO DAILY #90 07/25/24 07/22/24 07/21/24 09:00 Rx release tabs doxycycline monohydrate 100 mg 100 mg PO BID #6 tabs 07/25/24 Unknown Rx tablet omeprazole 20 mg tablet,delayed 20 mg PO DAILY #60 tabs 07/25/24 Unknown Rx release lisinopril 5 mg tablet 5 mg PO DAILY #30 tabs 07/26/24 Unknown Rx metoprolol tartrate 100 mg tablet 100 mg PO BID #60 tabs 07/26/24 Unknown Rx Allergies Allergy/AdvReac Type Severity Reaction Status Date / Time No Known Allergies Allergy Verified 07/30/24 08:20 PFSH Acute 2 PFSH: Medical History CHF exacerbation Pneumonia due to COVID-19 virus Acute hypoxic respiratory failure New onset atrial fibrillation Acute on chronic hypoxic respiratory failure COPD with acute exacerbation Urinary tract infection COVID-19 UTI (urinary tract infection) Acute exacerbation of chronic obstructive pulmonary disease Hyperlipidemia Stage 1 mild COPD by GOLD classification Seronegative rheumatoid arthritis 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 Type 2 diabetes mellitus Arthritis Peripheral vascular disease Hypertension Coronary artery disease Surgical History S/P carotid endarterectomy Left-sided S/P CABG (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 Family History Other CAD (coronary artery disease) Stroke Social History Smoking and tobacco/nicotine status: never used tobacco/nicotine Alcohol intake: never Substance/Drug Use: never Housing: House Vitals/I&O/Wt Last Vital Signs Temp 98.0 F 07/30/24 08:10 Pulse 99 07/30/24 16:00 Resp 20 H 07/30/24 16:00 BP 115/86 07/30/24 16:00 Pulse Ox 93 07/30/24 16:00 O2 Del Method Room Air 07/30/24 08:10 07/30/24 07/30/24 07/30/24 06:59 14:59 22:59 Intake Total 500 / 500 Balance 500 / 500 Physical Exam 2 Narrative: [place]. Const: COMMON NORMALS: negative for alert GENERAL APPEARANCE: cooperative ORIENTATION/CONSCIOUSNESS: not awake OTHER: Wakes up to voice. HENMT: COMMON NORMALS: oropharynx normal Neck/C-Spine: COMMON NORMALS: no JVD Resp: COMMON NORMALS: normal respiratory effort and clear to auscultation bilaterally AUSCULTATION: clear to auscultation bilaterally Cardio: COMMON NORMALS: no JVD, regular rhythm, S1 normal heart sound present, S2 normal heart sound present and No murmurs present (Cardio) RHYTHM: regular rhythm HEART SOUNDS: S1 normal heart sound present and S2 normal heart sound present GI: COMMON NORMALS: Normal to inspection, nondistended, normoactive bowel sounds present, Soft to palpation and non-tender PALPATION: Yes Soft to palpation Extremity: COMMON NORMALS: no joint enlargement and no pedal edema OTHER: Mild rigidity and asterixis. Neuro: COMMON NORMALS: moves all extremities SENSORIUM/ORIENTATION: Yes alert Skin: COMMON NORMALS: no rashes or lesions noted GENERAL SKIN EXAM: no rashes or lesions noted Data 07/30/24 08:56 07/30/24 08:56 A&P Assessment and plan (1) Acute encephalopathy: History obtained from his daughter and ER staff. Acute encephalopathy, possibly metabolic encephalopathy versus toxic encephalopathy, possibly related to medication toxicity, cyclobenzaprine, sertraline, with noted some rigidity, asterixis, additionally possibility of component of dehydration, bilirubin elevation 1.8, assess further for cholecystitis, although has not had any GI complaints, no right upper quadrant tenderness. Possibly partially treated UTI, discharged with doxycycline, does not have good penetration into urine, Proteus noted in urine culture during last admission. Urinalysis not suggestive of UTI at current time, 0-4 WBC, trace bacteria, but as discussed with family could be partially treated. Will restart antibiotic with Cipro. Additionally with COPD, assess ABG for hypercapnia. Reviewed vitals, CBC, CMP, ammonia, NT proBNP, UA. Reviewed chest x-ray, head CT, EKG on my interpretation with A-fib, RBBB, LAFB, some T wave flattening in aVL and 3 and aVF. Pending official read. Reviewed ED note, discussed with ED provider. Fall precautions. Bedrest for now. PT, OT assessment. Reassess mental status. N.p.o. for now. Hold cyclobenzaprine, sertraline for now. Gentle IV hydration for suspected dehydration. Monitor for risk of fluid overload with history of CHF. No history of dementia, no history of psychiatric illness. Discussed in case of recurrence of stroke, we are currently unable to determine whether he may have had recurrence of a stroke. CT scan did not show suggestion of CVA, or, may not see it as per discussion with his daughter, he is not currently able to get an MRI. The same time he is not a candidate for tPA. Grossly does not appear to have focal abnormality. (2) Hyperbilirubinemia: Right upper quadrant ultrasound. Plan Recent COVID-19 Recent UTI A-fib: Last admission as per discussions was not started on anticoagulation due to fall/bleeding risk. On aspirin. Change to TN for now. COPD: DuoNebs scheduled and as needed. HTN: Monitor blood pressures Depression: Hold sertraline for now Seronegative rheumatoid arthritis Attestations 2 Medical Necessity Statement*: Admission of over 2 midnights anticipated for assessment of management of acute encephalopathy, metabolic, possibly toxic with acute change in neurologic condition, recent COVID-19. Diagnoses Acute encephalopathy G93.40 Hyperbilirubinemia E80.6
[2024-07-30 17:22] LABS: ABG PCO2 45.3 mmHg (35-45); ABG PH Result 7.37 (7.35-7.45); Arterial Blood Gas Hematocrit 32.5 % (42-52); Base Excess ABG 0.6 mmol/L (-2.0-2.0); Blood Gas Allen Test Pos; Blood Gas Operator Identificat WALCI; Blood Gas Sample Site Radial, right; Blood Gas Sample Type Arterial; HCO3 ABG 26.2 mmol/L (22-26); Oxygen Device NC; PO2 ABG 94.7 mmHg (80.0-100.0)
[2024-07-30 17:44] LABS: Thyroid Stimulating Hormone 3.85 uIU/mL (0.27-4.20)
[2024-07-30] MEDS: lactated ringers 1,000 ML 30 ML IV (21:36)
[2024-07-30] MEDS: ciprofloxacin 400 MG/200 ML PREMIX 200 MG IV (21:36)
[2024-07-31] VITALS (7 sets, daily range): BP systolic 122–123; BP diastolic 67–86; PULSE 94–130; RESP 18–22; TEMP 36.7–36.8; O2SAT 93–97
[2024-07-31 05:20] LABS: Basophils % 0.4 %; Eosinophils # 0.3 10^3/uL (0.0-0.8); Lymphocytes % 10.7 %; Mean Corpuscular HGB Conc 29.1 g/dL (30-55); Mean Corpuscular Hemoglobin 23.8 pg (27-33); Mean Corpuscular Volume 81.7 fl (82-101); Mean Platelet Volume 10.6 fL (7.4-10.4); Monocytes # 1.2 10^3/uL (0.2-0.9); Monocytes % 12.6 %; Neutrophils # 6.82 10^3/uL (1.8-7.7); Neutrophils % 72.7 %; Nucleated Red Blood Cells % 0 %; Platelet Count 257 10^3/cmm (157-399); Red Blood Count 4.16 10^6/uL (3.85-5.65); Red Cell Distribution Width 18.9 % (12.1-15.1); White Blood Count 9.38 10^3/uL (3.29-11.43)
[2024-07-31 05:54] LABS: Alanine Aminotransferase 9 U/L (0-41); Alkaline Phosphatase 100 U/L (40-130); Anion Gap 15.3 (5-19); Aspartate Amino Transferase 11 U/L (0-40); Blood Urea Nitrogen 16 mg/dL (8-23); Calcium 8.2 mg/dL (8.5-10.5); Carbon Dioxide 27 mmol/L (22-29); Chloride 104 mmol/L (98-107); Creatinine Clr Calc Pharmacy 72.4291; Globulin 2.7 g/dL (1.3-4.6); Glucose 77 mg/dL (65-115); Magnesium 1.9 mg/dL (1.7-2.3); Osmolality Calculated 294 mOsm/kg (285-295); Phosphorus 3.8 mg/dL (2.5-4.5); Potassium 4.3 mmol/L (3.5-5.1); Sodium 142 mmol/L (136-145); Total Bilirubin 1.2 mg/dL (0.15-1.2); Total Protein 5.7 g/dL (6.6-8.7)
[2024-07-31] MEDS: metoprolol tartrate 50 mg Tablet 100 MG PO (09:43)
[2024-07-31] MEDS: tamsulosin 0.4 mg Capsule PO (09:43)
[2024-07-31] MEDS: pantoprazole DR 40 mg Tablet PO (09:44)
[2024-07-31] MEDS: ciprofloxacin 400 MG/200 ML PREMIX 200 MG IV (09:44)
[2024-07-31] MEDS: sertraline 50 mg Tablet PO (09:50)
[2024-07-31] MEDS: aspirin 81 mg EC Tablet PO (09:50)
[2024-07-31] MEDS: ipratropium-albuterol 3 mL Neb INHALATION (10:25)
--- NOTE | 2024-07-31 19:05 | P.DS_ITS ---
Discharge Providers Date of Admission: 07/30/24 17:36 Date of Discharge: July 31, 2024 Attending Provider at Admission: Lazaro Freed Attending Provider at Discharge: Lazaro Freed Primary Care Provider: Faustino Morales DO Diagnoses at Discharge Discharge Diagnosis (1) Acute encephalopathy: Status: Acute (2) Hyperbilirubinemia: Status: Acute Reason for Visit Reason for Visit: ams Brief History: 84-year-old gentleman recently admitted for management of COVID-19 pneumonia, urinary tract infection, A-fib, not on anticoagulation due to risk of falling/bleeding, discharged 07/26 to SNF for rehabilitation, back in November with left humeral fracture, with overall decline in his functional capacity since that time, worse since COVID. Was brought in for evaluation to ER due to altered mental status, seeing things that are not there, bugs, people, picking things out of thin air. He has not had any further issues with his left arm fracture. He is afebrile without leukocytosis in ER. CMP only with abnormal T. bili at 1.8, unremarkable other liver parameters. Ammonia was checked and is 13. NT-proBNP 6150. Normal EF on TTE July 23. Albumin 3.4. Urine dark, 1+ bilirubin, 0-4 WBC. Trace bacteria. EKG with atrial fibrillation, RBBB, LAFB. Chest x-ray with cardiomegaly. Trace pleural effusions with atelectasis at bases. Head CT with moderate chronic white matter microvascular ischemic change. Hospital Course Hospital Course He was hospitalized for further assessment of acute encephalopathy, hype rbilirubinemia. Received IV hydration for concern of dehydration. Was started on IV antibiotic with ciprofloxacin for concern of partially treated urinary tract infection. As well as head cyclobenzaprine and sertraline held with concern of possible medication toxicity causing encephalopathy with rigidity, asterixis on presentation. Gallbladder ultrasound was performed. With cholelithiasis noted with thickening but without definitive pericholecystic fluid. Findings could represent acute cholecystitis, but next day T. bili has normalized. He has had no abdominal pain. He did have thrush with odynophagia. The following morning he was awake and alert, with significant improvement with only mild confusion residual, he overall is weakened and in need of rehabilitation with physical deconditioning but was able to ambulate with physical therapy. Has not had any headache, has remained afebrile, without leukocytosis, no meningeal signs. Today denied any other complaints apart from odynophagia. Prescription is sent for a course of Diflucan. Physical Exam Narrative: He is awake and alert, very pleasant. Accompanied by family. Const: COMMON NORMALS: patient oriented x3 and alert GENERAL APPEARANCE: cooperative ORIENTATION/CONSCIOUSNESS: Yes awake HENMT: COMMON NORMALS: oropharynx normal OTHER: Thrush. Neck/C-Spine: COMMON NORMALS: no JVD Resp: COMMON NORMALS: normal respiratory effort and clear to auscultation bilaterally AUSCULTATION: clear to auscultation bilaterally Cardio: COMMON NORMALS: no JVD, regular rhythm, S1 normal heart sound present, S2 normal heart sound present and No murmurs present (Cardio) RHYTHM: regular rhythm HEART SOUNDS: S1 normal heart sound present and S2 normal heart sound present GI: COMMON NORMALS: Normal to inspection, nondistended, normoactive bowel sounds present, Soft to palpation and non-tender PALPATION: Yes Soft to palpation Extremity: COMMON NORMALS: no joint enlargement and no pedal edema Neuro: COMMON NORMALS: patient oriented x3 and moves all extremities SENSORIUM/ORIENTATION: Yes alert Skin: COMMON NORMALS: no rashes or lesions noted GENERAL SKIN EXAM: no ra shes or lesions noted Discharge Data Studies Completed and Pending Completed Studies During Hospitalization Category Date Time Status CT head wo con* [id number] Stat Cat Scan 07/30/24 13:33 Completed XR chest 1V portable [id number] Stat Exams 07/30/24 08:27 Completed US gall bladder [id number] Stat Ultrasound 07/30/24 16:01 Completed Radiology Impressions Chest X-Ray 07/30/24 08:27 IMPRESSION: 1. Cardiomegaly. 2. Suspect trace pleural effusions with atelectasis at the lung bases. Head CT 07/30/24 13:33 IMPRESSION: 1. No acute intracranial abnormality. 2. Moderate chronic white matter microvascular ischemic change. Gallbladder Ultrasound 07/30/24 16:01 IMPRESSION: 1. Cholelithiasis with gallbladder wall thickening. No definite pericholecystic fluid. Findings could represent acute cholecystitis in the correct clinical setting. A HIDA scan could be considered for further assessment if warranted. 2. No biliary ductal dilatation. 3. Simple right renal cyst. Laboratory Results WBC 9.38 10^3/uL (3.29-11.43) 07/31/24 04:28 RBC 4.16 10^6/uL (3.85-5.65) 07/31/24 04:28 Hgb 9.90 g/dL (11.27-16.99) L 07/31/24 04:28 Hct 34.0 % (37-53) L 07/31/24 04:28 MCV 81.7 fl (82-101) L 07/31/24 04:28 MCH 23.8 pg (27-33) L 07/31/24 04:28 MCHC 29.1 g/dL (30-55) L 07/31/24 04:28 RDW 18.9 % (12.1-15.1) H 07/31/24 04:28 Plt Count 257 10^3/cmm (157-399) 07/31/24 04:28 MPV 10.6 fL (7.4-10.4) H 07/31/24 04:28 Neut % (Auto) 72.7 % 07/31/24 04:28 Lymph % (Auto) 10.7 % 07/31/24 04:28 [place] % (Auto) 12.6 % 07/31/24 04:28 Eos % (Auto) 3.0 % 07/31/24 04:28 Baso % (Auto) 0.4 % 07/31/24 04:28 Neut # (Auto) 6.82 10^3/uL (1.8-7.7) 07/31/24 04:28 Lymph # (Auto) 1.0 10^3/uL (0.8-4.8) 07/31/24 04:28 [place] # (Auto) 1.2 10^3/uL (0.2-0.9) H 07/31/24 04:28 Eos # (Auto) 0.3 10^3/uL (0.0-0.8) 07/31/24 04:28 Baso # (Auto) 0.0 10^3/uL (0.0-0.1) 07/31/24 04:28 Nucleated RBC % (auto) 0 % 07/31/24 04:28 Nucleated RBCs # 0.0 /100WBC 07/31/24 04:28 Specimen Type Arterial 07/30/24 17:11 Sample Site Radial, right 07/30/24 17:11 ABG pH 7.37 (7.35-7.45) 07/30/24 17:11 ABG pCO2 45.3 mmHg (35-45) H 07/30/24 17:11 ABG pO2 94.7 mmHg (80.0-100.0) 07/30/24 17:11 ABG HCO3 26.2 mmol/L (22-26) H 07/30/24 17:11 ABG Base Excess 0.6 mmol/L (-2.0-2.0) 07/30/24 17:11 Fernando Test Pos 07/30/24 17:11 Hematocrit 32.5 % (42-52) L 07/30/24 17:11 O2 Delivery Device Nc 07/30/24 17:11 O2 Liters/Min 2.0 % 07/30/24 17:11 Alternative Financing Specialist ID [place] 07/30/24 17:11 Sodium 142 mmol/L (136-145) 07/31/24 04:28 Potassium 4.3 mmol/L (3.5-5.1) 07/31/24 04:28 Chloride 104 mmol/L (98-107) 07/31/24 04:28 Carbon Dioxide 27 mmol/L (22-29) 07/31/24 04:28 Anion Gap 15.3 (5-19) 07/31/24 04:28 BUN 16 mg/dL (8-23) 07/31/24 04:28 Creatinine 0.8 mg/dL (0.7-1.2) 07/31/24 04:28 GFR Calculation Not Reportable 07/31/24 04:28 Glucose 77 mg/dL (65-115) 07/31/24 04:28 Calculated Osmolality 294 mOsm/kg (285-295) 07/31/24 04:28 Calcium 8.2 mg/dL (8.5-10.5) L 07/31/24 04:28 Phosphorus 3.8 mg/dL (2.5-4.5) 07/31/24 04:28 Magnesium 1.9 mg/dL (1.7-2.3) 07/31/24 04:28 Total Bilirubin 1.2 mg/dL (0.15-1.2) 07/31/24 04:28 AST 11 U/L (0-40) 07/31/24 04:28 ALT 9 U/L (0-41) 07/31/24 04:28 Alkaline Phosphatase 100 U/L (40-130) 07/31/24 04:28 Ammonia 13 umol/L (16-60) L 07/30/24 14:46 NT-Pro-B Natriuret Pep 6150 pg/mL (0-450) H 07/30/24 08:56 Total Protein 5.7 g/dL (6.6-8.7) L D 07/31/24 04:28 Albumin 3.0 g/dL (3.5-5.2) L 07/31/24 04:28 Globulin 2.7 g/dL (1.3-4.6) 07/31/24 04:28 TSH 3.85 uIU/mL (0.27-4.20) 07/30/24 08:46 Urine Color Dark yellow (Yellow) A 07/30/24 11:13 Urine Appearance Clear (CLEAR) 07/30/24 11:13 Urine pH 5 (5-7) 07/30/24 11:13 Ur Specific [place] 1.015 (1.005-1.030) 07/30/24 11:13 Urine Protein Trace (Negative) 07/30/24 11:13 Urine Glucose (UA) Norm (Normal) 07/30/24 11:13 Urine Ketones Negative (Negative) 07/30/24 11:13 Urine Blood Neg (Negative) 07/30/24 11:13 Urine Nitrate Negative (Negative) 07/30/24 11:13 Urine Bilirubin 1+ (Negative) H 07/30/24 11:13 Urine Urobilinogen Norm mg/dL (Negative) 07/30/24 11:13 Ur Leukocyte Esterase Negative (Negative) 07/30/24 11:13 Urine RBC None /hpf (0-2) 07/30/24 11:13 Urine WBC 0-4 /hpf (0-5) H 07/30/24 11:13 Ur Squamous Epith Cells None /hpf (0-5) 07/30/24 11:13 Amorphous Sediment 2+ /hpf 07/30/24 11:13 Urine Bacteria Trace /hpf (NONE) 07/30/24 11:13 Vitals Last Vital Signs Temp 98.3 F 07/31/24 15:55 Pulse 94 07/31/24 15:55 Resp 22 H 07/31/24 15:55 BP 122/67 07/31/24 15:55 Pulse Ox 96 07/31/24 15:55 O2 Del Method Nasal Cannula 07/31/24 10:25 O2 Flow Rate 2 07/31/24 10:25 Discharge Plan Discharge Patient Disposition: Xfer SNF Condition: Stable Prescriptions: New ciprofloxacin HCl 500 mg tablet 500 mg PO BID Qty: 10 0RF Diflucan 200 mg tablet See Rx Instructions .ROUTE .COMPLEX 14 Days Qty: 15 0RF Rx Instructions: 200 mg on first day, then continue 100 mg daily for 2 weeks Continued amlodipine 10 mg tablet 10 mg PO DAILY Qty: 90 1RF tamsulosin 0.4 mg capsule 0.4 mg PO DAILY Qty: 90 1RF albuterol sulfate 90 mcg/actuation HFA aerosol inhaler See Rx Instructions .ROUTE .COMPLEX Qty: 8.5 0RF Dose Instruction: INHALE 1 PUFF BY MOUTH EVERY 6 HOURS NEEDED FOR SHORTNESS OF BREATH OR WHEEZING Rx Instructions: INHALE 1 PUFF BY MOUTH EVERY 6 HOURS NEEDED FOR SHORTNESS OF BREATH OR WHEEZING acetaminophen 325 mg Tablet 650 mg PO QID PRN (Reason: Pain) pantoprazole 40 mg tablet,delayed release (DR/EC) 40 mg PO DAILY doxycycline monohydrate 100 mg Tablet 100 mg PO BID Qty: 6 0RF aspirin 81 mg tablet,delayed release (DR/EC) 162 mg PO DAILY Qty: 90 1RF metoprolol tartrate 100 mg tablet 100 mg PO BID Qty: 60 5RF Held sertraline 50 mg tablet 50 mg PO DAILY Hold Instructions: Resume on 08/03/24. Discontinued cyclobenzaprine 10 mg tablet 10 mg PO Q8H Qty: 14 0RF Discharge Orders: Discharge Order (Routine); Ordered 07/31/24 Ordered By: Lazaro Freed Referrals: Faustino Morales DO [Primary Care Provider] - 4-7 days Discharge Diet: Regular Discharge Activity: Increase activity as tolerated Patient Instructions: Altered Mental Status (ED) Activity Restrictions/Additional Instructions: Continue rehabilitation. Please stop cyclobenzaprine. Hold sertraline for the next 3 days, then resume, monitor for any recurrence of symptoms, in case of recurrence discontinue sertraline. Avoid any medications that may contribute to altered mental status. Complete ciprofloxacin course for urinary tract infection which may have been partially treated. Seek medical attention in case of any worsening or new concerning symptoms. Discharge Attestations Time Spent in Discharge Care*: greater than 30 min Quality Metrics Clinical Quality Measures [ No reported AMI, CVA or VTE this stay] Coding Level of Care Code 03219 Total time (in minutes) for Discharge: 40 Diagnoses Acute encephalopathy G93.40 Hyperbilirubinemia E80.6
== END 2024-07-31 16:01 | disposition skilled nursing facility (03) ==
LOC: ER 18:24 → MEDSURG 18:42
PROVIDERS: Admitting Provider Internal Medicine; Emergency Provider Emergency Medicine; PCP Family Medicine; Visit Provider Internal Medicine
DX: G93.40 Encephalopathy, unspecified (principal); E80.6 Other disorders of bilirubin metabolism; Z86.16 Personal history of COVID-19; I48.91 Unspecified atrial fibrillation; E78.5 Hyperlipidemia, unspecified; J44.9 Chronic obstructive pulmonary disease, unspecified; E11.9 Type 2 diabetes mellitus without complications; I10 Essential (primary) hypertension; Z95.1 Presence of aortocoronary bypass graft
CPT/HCPCS: 36415; 36600; 70450; 71045; 76705; 80053; 81001; 82140; 82803; 83735; 83880; 84100; 84443; 85025; 93005; 94640; 97161; 97167; 99285; G0378; J0744; J7040; J7120